=== PATIENT | male | born 1945 ===

== ENCOUNTER 2020-08-18 07:07 | Outpatient (REF) | payer MEDICARE, SELFPAY ==
[2020-08-18 07:36] LABS: MANUAL DIFF FLAG NO
[2020-08-18 07:41] LABS: Basophils Absolute Auto 0.1 X10*3/uL (0.0-0.2); Basophils Percent Auto 0.7 % (0-2); Eosinophils Absolute Auto 0.8 X10*3/uL (0.0-0.4); Eosinophils Percent Auto 10.1 % (0-4); Hemoglobin 15.2 g/dl (14.0-18.0); Imm Gran Abs Auto 0.02 X10*3/uL (0.00-0.03); Imm Gran Pct Auto 0.2 % (0.0-0.4); Lymphocytes Absolute Auto 1.6 X10*3/uL (1.2-4.9); Lymphocytes Percent Auto 19.6 % (20-40); Mean Corpuscular Volume 93.7 fL (80-98); Mean Platelet Volume 10.2 fL (9.4-12.4); Monocytes Absolute Auto 0.8 X10*3/uL (0.1-1.2); Neutrophils Absolute Auto 4.8 X10*3/uL (2.0-8.3); Neutrophils Percent Auto 59.4 % (45-73); Platelet Count 181 X10*3/uL (160-400); Red Blood Count 4.91 X10*6/uL (4.60-5.80); Red Cell Distribution Width 12.4 % (11.0-16.0); White Blood Count 8.1 X10*3/uL (4.8-10.8)
[2020-08-18 07:54] LABS: Estimated Average Glucose 114 mg/dL; Hemoglobin A1c % 5.6 %
[2020-08-18 08:09] LABS: Alanine Aminotransferase 69 U/L (0-40); Albumin Level 4.6 g/dL (3.5-5.0); Alkaline Phosphatase 68 U/L (39-117); Anion Gap 14 (12-20); Aspartate Amino Transferase 47 U/L (5-37); Bilirubin Total 2.3 mg/dL (0.0-1.0); Blood Urea Nitrogen 17 mg/dL (9-16); Calcium 9.2 mg/dL (8.4-10.2); Carbon Dioxide 29 mmol/L (22-29); Chloride 102 mmol/L (96-108); Cholesterol 146 mg/dL; Estimated Glomerular Filt Rate > 60; Glucose Fasting 101 mg/dL (60-99); HDL Cholesterol 56 mg/dL; LDL Cholesterol Calculated 72 mg/dl; Potassium 4.1 mmol/l (3.3-5.1); Sodium 141 mmol/L (135-145); Total Protein 7.1 g/dL (6.5-8.0); Triglycerides 90 mg/dL
[2020-08-18 08:29] LABS: T4 Thyroxine 6.2 ug/dL (4.5-12.0); Thyroid Stimulating Hormone 1.07 uIU/mL (0.32-4.0)
[2020-08-21 14:55] LABS: Folate 17.5 ng/mL (> or = 4.0); Vitamin B12 587 pg/mL (200-900)
== END 2020-08-18 07:08 | disposition home or self-care (01) ==
LOC: HO.LAB 07:07
PROVIDERS: Visit Provider Internal Medicine
DX: I25.10 Atherosclerotic heart disease of native coronary artery without angina pectoris (principal); I10 Essential (primary) hypertension; E78.00 Pure hypercholesterolemia, unspecified; I65.23 Occlusion and stenosis of bilateral carotid arteries; M51.36 Other intervertebral disc degeneration, lumbar region
CPT/HCPCS: 36415; 80053; 80061; 82607; 82746; 83036; 84436; 84443; 85025

== ENCOUNTER 2020-09-07 06:59 | Outpatient (REF) | payer MEDICARE, SELFPAY ==
--- NOTE | ~2020-09-07 | XR_ITS ---
EXAMINATION: CR X-RAY HAND BILATERAL 3 VIEW CLINICAL INFORMATION: Bilateral hand pain. COMPARISON: Right hand radiographs dated 04/01/2019. TECHNIQUE: 3 views each of the bilateral hands were obtained. FINDINGS: Right: Mild first carpometacarpal degenerative joint changes are seen. There is no acute fracture or dislocation. The carpal bones are normally aligned. The distal radius and ulna are intact. The soft tissues are unremarkable. Left: Moderate first carpometacarpal degenerative joint changes are seen. There is no acute fracture or dislocation. The carpal bones are normally aligned. The distal radius and ulna are intact. The soft tissues are unremarkable. XR/XR hand RT 2V IMPRESSION: Mild right and moderate left first carpometacarpal osteoarthritis. No acute abnormality.
--- NOTE | ~2020-09-07 | XR_ITS ---
EXAMINATION: CR X-RAY HAND BILATERAL 3 VIEW CLINICAL INFORMATION: Bilateral hand pain. COMPARISON: Right hand radiographs dated 04/01/2019. TECHNIQUE: 3 views each of the bilateral hands were obtained. FINDINGS: Right: Mild first carpometacarpal degenerative joint changes are seen. There is no acute fracture or dislocation. The carpal bones are normally aligned. The distal radius and ulna are intact. The soft tissues are unremarkable. Left: Moderate first carpometacarpal degenerative joint changes are seen. There is no acute fracture or dislocation. The carpal bones are normally aligned. The distal radius and ulna are intact. The soft tissues are unremarkable. XR/XR hand LT 2V IMPRESSION: Mild right and moderate left first carpometacarpal osteoarthritis. No acute abnormality.
--- NOTE | ~2020-09-07 | US_ITS ---
EXAMINATION: US ABDOMEN LIMITED CLINICAL INFORMATION: Fatty liver. COMPARISON: None TECHNIQUE: Real-time imaging of the right upper quadrant abdominal viscera. FINDINGS: PANCREAS: Visualized portions unremarkable. The tail is partially obscured by bowel gas shadowing. LIVER: Homogeneous echotexture without focal abnormality. GALLBLADDER: Small dependent gallstones are seen near the neck without mural thickening or pericholecystic fluid. COMMON BILE DUCT: Normal in caliber measuring 0.3 cm in diameter. RIGHT KIDNEY: 10.0 cm. An anechoic cyst in the upper pole within septation measures 1.8 cm. Color Doppler showed no associated vascular flow. FREE FLUID: Trace perihepatic ascites. US/US abdomen limited IMPRESSION: 1. Trace perihepatic ascites without focal hepatic abnormality. 2. Cholelithiasis without evidence for acute cholecystitis. 3. Right upper pole small renal cyst demonstrates benign features.
[2020-09-07 07:49] LABS: Alanine Aminotransferase 70 U/L (0-40); Albumin Level 4.4 g/dL (3.5-5.0); Alkaline Phosphatase 61 U/L (39-117); Aspartate Amino Transferase 41 U/L (5-37); Bilirubin Direct 0.5 mg/dL (0.0-0.5); Bilirubin Total 1.1 mg/dL (0.0-1.0); Total Protein 6.7 g/dL (6.5-8.0)
[2020-09-07 08:10] LABS: HBsAGNum1 0.19 S/CO (0.00-0.99); Hepatitis B Surface Antigen Negative (Negative); ~Hepatitis C Antibody Nonreactive (Nonreactive)
[2020-09-07 08:58] LABS: HBc Num1 0.33 S/CO (0.00-0.79); Hepatitis B Core Antibody Nonreactive (Nonreactive); ~Hepatitis B Surface Antibody NONREACTIVE (Nonreactive)
== END 2020-09-07 07:00 | disposition home or self-care (01) ==
LOC: HO.US 06:59
PROVIDERS: Visit Provider Internal Medicine
DX: K76.0 Fatty (change of) liver, not elsewhere classified (principal)
CPT/HCPCS: 36415; 73120; 76705; 80076; 86704; 86706; 86803; 87340

== ENCOUNTER 2021-02-26 07:08 | Outpatient (REF) | payer MEDICARE, SELFPAY ==
[2021-02-26 08:04] LABS: MANUAL DIFF FLAG NO
[2021-02-26 08:08] LABS: Basophils Absolute Auto 0.1 X10*3/uL (0.0-0.2); Basophils Percent Auto 0.6 % (0-2); Eosinophils Absolute Auto 0.7 X10*3/uL (0.0-0.4); Eosinophils Percent Auto 9.2 % (0-4); Hematocrit 44.9 % (42-52); Hemoglobin 14.7 g/dl (14.0-18.0); Imm Gran Abs Auto 0.03 X10*3/uL (0.00-0.03); Imm Gran Pct Auto 0.4 % (0.0-0.4); Lymphocytes Absolute Auto 1.3 X10*3/uL (1.2-4.9); Mean Corpuscular HGB Conc 32.7 g/dl (31.0-36.0); Mean Corpuscular Hemoglobin 30.8 pg (27.0-33.0); Mean Corpuscular Volume 93.9 fL (80-98); Monocytes Absolute Auto 0.8 X10*3/uL (0.1-1.2); Monocytes Percent Auto 10.1 % (2-11); Neutrophils Absolute Auto 4.9 X10*3/uL (2.0-8.3); Neutrophils Percent Auto 62.7 % (45-73); Platelet Count 166 X10*3/uL (160-400); Red Blood Count 4.78 X10*6/uL (4.60-5.80); Red Cell Distribution Width 12.6 % (11.0-16.0); White Blood Count 7.8 X10*3/uL (4.8-10.8)
[2021-02-26 08:28] LABS: Estimated Average Glucose 114 mg/dL; Hemoglobin A1c % 5.6 %
[2021-02-26 08:38] LABS: Alanine Aminotransferase 39 U/L (0-40); Albumin Level 4.1 g/dL (3.5-5.0); Alkaline Phosphatase 63 U/L (39-117); Anion Gap 11 (12-20); Aspartate Amino Transferase 32 U/L (5-37); Bilirubin Total 1.4 mg/dL (0.0-1.0); Blood Urea Nitrogen 16 mg/dL (9-16); Calcium 9.1 mg/dL (8.4-10.2); Carbon Dioxide 29 mmol/L (22-29); Chloride 108 mmol/L (96-108); Cholesterol 140 mg/dL; Estimated Glomerular Filt Rate > 60; Glucose Random 101 mg/dL (60-115); HDL Cholesterol 50 mg/dL; LDL Cholesterol Calculated 78 mg/dl; Magnesium 2.1 mg/dL (1.6-2.6); Potassium 4.7 mmol/L (3.3-5.1); Sodium 143 mmol/L (135-145); Total Protein 6.5 g/dL (6.5-8.0); Triglycerides 61 mg/dL
[2021-02-26 09:02] LABS: Folate 17.2 ng/mL (> or = 4.0); Vitamin B12 620 pg/mL (200-900)
== END 2021-02-26 07:09 | disposition home or self-care (01) ==
LOC: HO.LAB 07:08
PROVIDERS: PCP Internal Medicine; Visit Provider Internal Medicine
DX: R73.02 Impaired glucose tolerance (oral) (principal); E78.00 Pure hypercholesterolemia, unspecified; I10 Essential (primary) hypertension
CPT/HCPCS: 36415; 80053; 80061; 82607; 82746; 83036; 83735; 84439; 84443; 85025

== ENCOUNTER 2021-05-22 12:33 | Outpatient (REF) | payer MEDICARE, SELFPAY ==
[2021-05-22 14:08] LABS: Prostate Specific Antigen 0.45 ng/mL (<0.05-4.0)
[2021-05-23 21:41] LABS: Lyme Blot 0.96 index
[2021-05-24 12:37] LABS: Lyme Abs Screen EQUIVOCAL
[2021-05-25 10:56] LABS: 18 KD (IgG) Band NON-REACTIVE; 23 KD (IgG) Band NON-REACTIVE; 23 KD (IgM) Band NON-REACTIVE; 28 KD (IgG) Band NON-REACTIVE; 30 KD (IgG) Band NON-REACTIVE; 39 KD (IgM) Band NON-REACTIVE; 41 KD (IgM) Band NON-REACTIVE; 45 KD (IgG) Band NON-REACTIVE; 58 KD (IgG) Band REACTIVE; 66 KD (IgG) Band NON-REACTIVE; 93 KD (IgG) Band NON-REACTIVE; Lyme IgG Blot Interp NEGATIVE (NEGATIVE); Lyme IgM Blot Interp NEGATIVE (NEGATIVE)
== END 2021-05-22 12:34 | disposition home or self-care (01) ==
LOC: HO.LAB 12:33
PROVIDERS: Nurse Practitioner Family; PCP Internal Medicine; Visit Provider Internal Medicine
DX: Z12.5 Encounter for screening for malignant neoplasm of prostate (principal); M79.10 Myalgia, unspecified site
CPT/HCPCS: 36415; 84153; 86617; 86618

== ENCOUNTER 2022-02-21 07:43 | Outpatient (REF) | payer MEDICARE, SELFPAY ==
[2022-02-21 07:53] LABS: MANUAL DIFF FLAG NO
[2022-02-21 08:06] LABS: Basophils Absolute Auto 0.1 X10*3/uL (0.0-0.2); Basophils Percent Auto 1.1 % (0-2); Eosinophils Absolute Auto 0.7 X10*3/uL (0.0-0.4); Eosinophils Percent Auto 9.7 % (0-4); Hematocrit 44.9 % (42.0-52.0); Hemoglobin 15.5 g/dl (14.0-18.0); Imm Gran Abs Auto 0.01 X10*3/uL (0.00-0.03); Imm Gran Pct Auto 0.1 % (0.0-0.4); Lymphocytes Absolute Auto 1.5 X10*3/uL (1.2-4.9); Mean Corpuscular HGB Conc 34.5 g/dl (31.0-36.0); Mean Corpuscular Hemoglobin 31.4 pg (27.0-33.0); Mean Corpuscular Volume 91.1 fL (80.0-98.0); Mean Platelet Volume 10.3 fL (9.4-12.4); Monocytes Absolute Auto 0.7 X10*3/uL (0.1-1.2); Monocytes Percent Auto 9.5 % (2-11); Neutrophils Absolute Auto 4.5 x10*3/uL (2.0-8.3); Neutrophils Percent Auto 59.6 % (45-73); Platelet Count 163 X10*3/uL (160-400); Red Blood Count 4.93 X10*6/uL (4.60-5.80); Red Cell Distribution Width 12.8 % (11.0-16.0); White Blood Count 7.6 X10*3/uL (4.8-10.8)
[2022-02-21 08:18] LABS: Estimated Average Glucose 111 mg/dL; Hemoglobin A1c % 5.5 %
[2022-02-21 08:31] LABS: Alanine Aminotransferase 19 U/L (0-40); Albumin Level 4.4 g/dL (3.5-5.0); Alkaline Phosphatase 61 U/L (39-117); Anion Gap 12 (12-20); Aspartate Amino Transferase 28 U/L (5-37); Bilirubin Total 1.9 mg/dL (0.0-1.0); Blood Urea Nitrogen 21 mg/dL (9-16); Calcium 9.4 mg/dL (8.4-10.2); Carbon Dioxide 28 mmol/L (22-29); Chloride 103 mmol/L (96-108); Cholesterol 167 mg/dL; Estimated Glomerular Filt Rate > 60; Glucose Random 102 mg/dL (60-115); HDL Cholesterol 52 mg/dL; LDL Cholesterol Calculated 98 mg/dl; Potassium 4.4 mmol/L (3.3-5.1); Sodium 139 mmol/L (135-145); Triglycerides 87 mg/dL
[2022-02-21 08:55] LABS: Thyroid Stimulating Hormone 1.61 uIU/mL (0.32-4.0)
[2022-02-21 09:56] LABS: Folate > 20.0 ng/mL (> or = 4.0); Vitamin B12 609 pg/mL (200-900)
== END 2022-02-21 07:44 | disposition home or self-care (01) ==
LOC: HO.LAB 07:43
PROVIDERS: PCP Internal Medicine; Visit Provider Internal Medicine
DX: R73.02 Impaired glucose tolerance (oral) (principal); E78.00 Pure hypercholesterolemia, unspecified
CPT/HCPCS: 36415; 80053; 80061; 82607; 82746; 83036; 84443; 85025

== ENCOUNTER 2022-04-09 15:19 | Outpatient (REF) | payer MEDICARE, SELFPAY ==
--- NOTE | ~2022-04-09 | XR_ITS ---
EXAMINATION: XR HAND, RIGHT CLINICAL INFORMATION: Pain COMPARISON: Previous x-ray August 2020 TECHNIQUE: PA, lateral, and oblique views of the right hand. FINDINGS: Bone alignment is normal. No fracture or dislocation is seen. There is arthritis at the first MCP joint and HALFWAY joint with joint space narrowing and osteophyte formation. Joint spaces are otherwise normal. Soft tissues are normal. XR/XR hand RT min 3V IMPRESSION: Mild arthritis of the thumb.
== END 2022-04-09 15:20 | disposition home or self-care (01) ==
LOC: HO.HOSX 15:19
PROVIDERS: Visit Provider Orthopaedic Surgery
DX: M65.351 Trigger finger, right little finger (principal); R20.0 Anesthesia of skin
CPT/HCPCS: 73130; 99202

== ENCOUNTER 2022-06-12 07:36 | Outpatient (REF) | payer MEDICARE, SELFPAY ==
[2022-06-12 08:35] LABS: Alanine Aminotransferase 19 U/L (0-40); Albumin Level 4.3 g/dL (3.5-5.0); Alkaline Phosphatase 73 U/L (39-117); Anion Gap 13 (12-20); Aspartate Amino Transferase 23 U/L (5-37); Bilirubin Total 1.8 mg/dL (0.0-1.0); Blood Urea Nitrogen 15 mg/dL (9-16); Calcium 9.5 mg/dL (8.4-10.2); Carbon Dioxide 29 mmol/L (22-29); Chloride 103 mmol/L (96-108); Cholesterol 140 mg/dL; Estimated Glomerular Filt Rate > 60; Glucose Random 97 mg/dL (60-115); HDL Cholesterol 45 mg/dL; LDL Cholesterol Calculated 78 mg/dl; Potassium 4.6 mmol/L (3.3-5.1); Sodium 140 mmol/L (135-145); Total Protein 6.8 g/dL (6.5-8.0); Triglycerides 87 mg/dL
[2022-06-12 08:36] LABS: Estimated Average Glucose 111 mg/dL; Hemoglobin A1C 149.7808 umol/L; Hemoglobin A1c % 5.5 %
== END 2022-06-12 07:37 | disposition home or self-care (01) ==
LOC: HO.LAB 07:36
PROVIDERS: PCP Internal Medicine; Visit Provider Internal Medicine
DX: E78.00 Pure hypercholesterolemia, unspecified (principal)
CPT/HCPCS: 36415; 80053; 80061; 83036

== ENCOUNTER 2022-06-19 15:07 | Outpatient (REF) | payer MEDICARE, SELFPAY ==
--- NOTE | 2022-06-19 09:30 | EMG_ITS ---
Please see scanned EMG / Nerve Conduction Report. MTDD
== END 2022-06-19 15:08 | disposition home or self-care (01) ==
LOC: HO.NEURO 15:07
PROVIDERS: PCP Internal Medicine; Visit Provider Orthopaedic Surgery
DX: R20.0 Anesthesia of skin (principal); R20.2 Paresthesia of skin
CPT/HCPCS: 95885; 95913

== ENCOUNTER → 2022-07-24 08:33 | Outpatient (BNVA) | payer MEDICARE, SELFPAY | PROVIDERS: PCP Internal Medicine; Visit Provider Orthopaedic Surgery | DX: M65.351 Trigger finger, right little finger (principal); G56.03 Carpal tunnel syndrome, bilateral upper limbs | CPT/HCPCS: 99212 ==

== ENCOUNTER 2022-12-17 07:18 | Outpatient (REF) | payer MEDICARE, SELFPAY ==
[2022-12-17 07:29] LABS: MANUAL DIFF FLAG NO
[2022-12-17 08:01] LABS: Basophils Absolute Auto 0.1 X10*3/uL (0.0-0.2); Basophils Percent Auto 0.7 % (0-2); Eosinophils Absolute Auto 0.8 X10*3/uL (0.0-0.4); Eosinophils Percent Auto 9.6 % (0-4); Hematocrit 45.9 % (42.0-52.0); Hemoglobin 15.2 g/dl (14.0-18.0); Imm Gran Abs Auto 0.02 X10*3/uL (0.00-0.03); Imm Gran Pct Auto 0.2 % (0.0-0.4); Lymphocytes Absolute Auto 1.7 X10*3/uL (1.2-4.9); Lymphocytes Percent Auto 19.6 % (20-40); Mean Corpuscular HGB Conc 33.1 g/dl (31.0-36.0); Mean Corpuscular Volume 93.7 fL (80.0-98.0); Mean Platelet Volume 10.5 fL (9.4-12.4); Monocytes Absolute Auto 0.9 X10*3/uL (0.1-1.2); Neutrophils Absolute Auto 5.2 x10*3/uL (2.0-8.3); Neutrophils Percent Auto 59.9 % (45-73); Platelet Count 184 X10*3/uL (160-400); Red Cell Distribution Width 12.5 % (11.0-16.0); White Blood Count 8.6 X10*3/uL (4.8-10.8)
[2022-12-17 08:11] LABS: Estimated Average Glucose 103 mg/dL; Hemoglobin A1c % 5.2 %
[2022-12-17 08:51] LABS: Alanine Aminotransferase 19 U/L (0-40); Albumin Level 4.4 g/dL (3.5-5.0); Alkaline Phosphatase 63 U/L (39-117); Anion Gap 13 (12-20); Aspartate Amino Transferase 26 U/L (5-37); Bilirubin Total 2.7 mg/dL (0.0-1.0); Blood Urea Nitrogen 18 mg/dL (9-16); Calcium 9.7 mg/dL (8.4-10.2); Carbon Dioxide 28 mmol/L (22-29); Chloride 104 mmol/L (96-108); Cholesterol 138 mg/dL; Estimated Glomerular Filt Rate > 60; Glucose Random 91 mg/dL (60-115); HDL Cholesterol 47 mg/dL; LDL Cholesterol Calculated 74 mg/dl; Potassium 4.7 mmol/L (3.3-5.1); Sodium 140 mmol/L (135-145); Triglycerides 89 mg/dL; Uric Acid 4.6 mg/dL (3.4-7.0)
[2022-12-17 09:06] LABS: Folate 18.7 ng/mL (> or = 4.0); Free T4 (Free Thyroxine) 0.89 ng/dL (0.71-1.85); Thyroid Stimulating Hormone 1.74 uIU/mL (0.32-4.0); Vitamin B12 680 pg/mL (200-900)
== END 2022-12-17 07:19 | disposition home or self-care (01) ==
LOC: HO.LAB 07:18
PROVIDERS: PCP Internal Medicine; Visit Provider Internal Medicine
DX: I25.10 Atherosclerotic heart disease of native coronary artery without angina pectoris (principal); E78.00 Pure hypercholesterolemia, unspecified; R73.02 Impaired glucose tolerance (oral)
CPT/HCPCS: 36415; 80053; 80061; 82607; 82746; 83036; 84439; 84443; 84550; 85025

== ENCOUNTER 2023-06-17 07:09 | Outpatient (REF) | payer MEDICARE, SELFPAY ==
[2023-06-17 07:28] LABS: MANUAL DIFF FLAG NO
[2023-06-17 07:33] LABS: Basophils Percent Auto 0.5 % (0-2); Eosinophils Absolute Auto 0.8 X10*3/uL (0.0-0.4); Hematocrit 45.6 % (42.0-52.0); Hemoglobin 15.4 g/dl (14.0-18.0); Imm Gran Abs Auto 0.02 X10*3/uL (0.00-0.03); Imm Gran Pct Auto 0.3 % (0.0-0.4); Lymphocytes Absolute Auto 1.2 X10*3/uL (1.2-4.9); Lymphocytes Percent Auto 15.6 % (20-40); Mean Corpuscular HGB Conc 33.8 g/dl (31.0-36.0); Mean Corpuscular Hemoglobin 31.5 pg (27.0-33.0); Mean Corpuscular Volume 93.3 fL (80.0-98.0); Mean Platelet Volume 10.4 fL (9.4-12.4); Monocytes Absolute Auto 0.7 X10*3/uL (0.1-1.2); Monocytes Percent Auto 9.7 % (2-11); Neutrophils Absolute Auto 4.9 x10*3/uL (2.0-8.3); Neutrophils Percent Auto 63.9 % (45-73); Platelet Count 187 X10*3/uL (160-400); Red Blood Count 4.89 X10*6/uL (4.60-5.80); Red Cell Distribution Width 12.5 % (11.0-16.0); White Blood Count 7.6 X10*3/uL (4.8-10.8)
[2023-06-17 07:49] LABS: Estimated Average Glucose 111 mg/dL; Hemoglobin A1c % 5.5 % (<6.0)
[2023-06-17 08:16] LABS: Alanine Aminotransferase 17 U/L (0-40); Albumin Level 4.3 g/dL (3.5-5.0); Alkaline Phosphatase 60 U/L (39-117); Aspartate Amino Transferase 23 U/L (5-37); Bilirubin Total 1.3 mg/dL (0.0-1.0); Blood Urea Nitrogen 20 mg/dL (9-16); Calcium 9.5 mg/dL (8.4-10.2); Cholesterol 149 mg/dL (<200); Estimated Glomerular Filt Rate > 60; Glucose Random 102 mg/dL (60-115); HDL Cholesterol 51 mg/dL (>40); LDL Cholesterol Calculated 83 mg/dL (<100); Total Protein 7.1 g/dL (6.5-8.0); Triglycerides 75 mg/dL (<150)
[2023-06-17 08:35] LABS: Free T4 (Free Thyroxine) 0.83 ng/dL (0.71-1.85); Thyroid Stimulating Hormone 2.28 uIU/mL (0.32-4.0)
[2023-06-17 08:36] LABS: Folate 17.5 ng/mL (> or = 4.0); Vitamin B12 640 pg/mL (200-900)
[2023-06-17 08:45] LABS: Anion Gap 12 (12-20); Carbon Dioxide 29 mmol/L (22-29); Chloride 104 mmol/L (96-108); Potassium 4.5 mmol/L (3.3-5.1); Sodium 140 mmol/L (135-145)
== END 2023-06-17 07:10 | disposition home or self-care (01) ==
LOC: HO.LAB 07:09
PROVIDERS: PCP Internal Medicine; Visit Provider Internal Medicine
DX: E78.00 Pure hypercholesterolemia, unspecified (principal); R73.02 Impaired glucose tolerance (oral)
CPT/HCPCS: 36415; 80053; 80061; 82607; 82746; 83036; 84439; 84443; 85025

== ENCOUNTER 2023-06-20 09:26 | Outpatient (AMB) | payer MEDICARE, SELFPAY ==
[2023-06-20 09:29] VITALS: BP 148/90; PULSE 58; O2SAT 96; BMI 26.6
--- NOTE | 2023-06-20 09:29 | MHC.PC.OV ---
Vital Signs 06/20/23 09:29 Height 5 ft 4 in Weight 155 lb 0.8 oz BMI 26.6 BP 148/90 H Blood Pressure Location Lt brachial Position Sitting Pulse 58 Pulse Source Pulse Oximeter Pulse Oximetry (%) 96 Oxygen Delivery Method Room Air Intake Visit Reasons: Coronary artery disease Telehealth Nurse Educator Required: No Allergies lisinopril Allergy (Unknown, Verified 06/20/23 09:29) tiredness, cough rosuvastatin [Crestor] Allergy (Unknown, Verified 06/20/23 09:29) Unknown Tobacco use date assessed: 06/20/23 Fall risk assessment: No Falls in past year Last assessed Fall Risk: 06/20/23 Dental Screening Dental Screen Date: 06/20/23 Did you have a dental visit in the last 12 months?: Yes Did you have a dental problem in the last 6 months where you did not have access to dental care?: No Was dental information given to patient?: Patient has dentist HPI Coronary artery disease HPI Details 78-year-old male with a history of coronary artery disease hypertension hypercholesterolemia lumbar degenerative disc disease coming in for follow-up. Last seen in December 2022. Patient's colonoscopy is due this year. Review of the notes seen Cardiology May 2023 continuing with aspirin statins beta-carol ARB as for cholesterol medication patient can only tolerate certain statins due to myalgia EF from stress 49% February 2023 myocardial perfusion abnormal after stress test large dense fixed apical and mid apical anterior defect consistent with scar with minimal jessica-infarct ischemia LV 4 9% apical akinesis global hypokinesis. Patient also has seen in February the neurosurgeon status post right CEA 5 years history of TIA June 2017 carotid ultrasound follow-up in February 2025- switched cardiology to another. Dr. Simpson now- states forgoty BP med- admit [facility] Medical History (Updated 12/19/22 @ 08:47 by Nataliia Porras MD) Bilateral hand numbness Trigger finger of right hand Screening for prostate cancer Positive Lyme disease serology Lumbar nerve root compression Cholelithiasis Diverticular disease Peripheral neuropathy Hypercholesterolemia Hypertension Bilateral carotid artery stenosis Anxiety TIA (transient ischemic attack) Lumbar degenerative disc disease Coronary artery disease Erectile dysfunction Asthma Surgical History History of colonoscopy History of lumbar surgery History of surgery History of carotid endarterectomy History of cataract surgery History of coronary artery bypass graft History of eye surgery Family History Father Myocardial infarction Hypertension CVD (cardiovascular disease) Mother Hypertension Skin cancer Paternal Grandfather Myocardial infarction Paternal Uncle Myocardial infarction Social History Housing: House Alcohol intake: current Alcohol intake frequency: holidays/special occasions only Patient Tobacco Use Status: Former Tobacco user Tobacco use type: Cigarette e-Cigarette/Vaping Use: Never Used Second Hand Smoke Exposure: No service: No Current occupational status: retired Current occupation: rt hand Cognitive needs: No Hearing needs: No Vision needs: No Questionnaire Thrive Questionnaire Date Thrive assessed: 12/19/22 AUDIT C Alcohol Use Questionnaire (AUDIT-C) 1. How often do you have a drink containing alcohol?: Monthly or less 2. How many drinks containing alcohol do you have on a typical day when you are drinking?: 1 or 2 3. How often do you have six or more drinks on one occasion?: Never Total Score: 1 Score Reviewed/Action Taken: No AYANA-7 AMB Questionnaire AYANA-7 Date AYANA - 7 assessed: 12/19/22 Source: Developed by Drs. Nigel Espitia, Lisa Greene, Archie Morales and colleagues, with an educational inge from [employer]. Physical exam (Primary Care) Vital Signs: Last Vital Signs Pulse 58 06/20/23 09:29 BP 148/90 H 06/20/23 09:29 Pulse Ox 96 06/20/23 09:29 Oxygen Delivery Method Room Air 06/20/23 09:29 BMI result Body Mass Index 26.6 Tobacco/Smoking Status: Tobacco use Status Tobacco use date assessed 06/20/23 06/20/23 09:30 Patient Tobacco Use Status Former Tobacco user 06/20/23 09:30 Tobacco use type Cigarette 06/20/23 09:30 e-Cigarette/Vaping Use Never Used 06/20/23 09:30 Thrive Assessment: Date of Thrive Assessment Date Thrive assessed 12/19/22 06/20/23 09:30 Const General: alert; No acute distress Eyes Conjunctivae: conjunctivae normal Resp Auscultation: clear to auscultation bilaterally Cardio Rate: regular rate Rhythm: regular rhythm GI Inspection: Yes normal to inspection Extrem General: Yes normal to inspection and No edema Assessment and Plan Assessment & Plan (1) Coronary artery disease: Comment: CABG April 2012, stress echo January 2019 small apical infarct myocardial perfusion, February 2019 up echo anterior anteroseptal fixed and jessica-infarct ischemia. Dr. Hung Strong December 2018 and negative Code(s): I25.10 - Atherosclerotic heart disease of [place] coronary artery without angina pectoris Qualifiers: Coronary Disease-Associated Artery/Lesion type: [place] artery [place] vs. transplanted heart: [place] heart Associated angina: without angina Qualified Code(s): I25.10 - Atherosclerotic heart disease of [place] coronary artery without angina pectoris Plan: Control the cholesterol, weight, blood pressure, patient follows up with Cardiology continue with aspirin 81 mg once a day (2) Lumbar degenerative disc disease: Code(s): M51.36 - Other intervertebral disc degeneration, lumbar region Plan: Continue to be active continue with pain medication as knee (3) Asthma: Code(s): J45.909 - Unspecified asthma, uncomplicated Plan: Stable (4) Hypertension: Code(s): I10 - Essential (primary) hypertension Qualifiers: Hypertension type: essential hypertension Qualified Code(s): I10 - Essential (primary) hypertension Plan: Continue with blood pressure medication. Decrease salt intake and exercise presently on carvedilol 3.125 mg twice a day losartan 100 mg once a day (5) Hypercholesterolemia: Code(s): E78.00 - Pure hypercholesterolemia, unspecified Plan: Avoid fried foods, chicken skin, eggs, butter margarine, pastries and meat. Be it pork or beef they have a lot of cholesterol LDL goal of less than 70 and triglyceride of less than 150. Recent LDL is 83 (6) Impaired glucose tolerance: Code(s): R73.02 - Impaired glucose tolerance (oral) Plan: Decrease the amount of carbohydrate intake, pasta, bread, rice and potatoes are all sugar and that is aside from all the sweet stuff, remember that fruits are good but they are Sweet also. (7) History of carotid endarterectomy: Comment: 08/2017 Dr.Barasa Cardenas Code(s): Z98.890 - Other specified postprocedural states Plan: Patient follows up with neurosurgeon and the continuing to follow-up with ultrasounds of the carotids next 1 is February 2025 (8) Generalized anxiety disorder: Code(s): F41.1 - Generalized anxiety disorder Plan: Stable (9) Colon cancer screening: Comment: Tubular adenoma 2018 Code(s): Z12.11 - Encounter for screening for malignant neoplasm of colon Plan: scheduled Orders: Orders Lipid Panel 3 Months E78.00 - Pure hypercholesterolemia, unspecified Comprehensive Met. Panel 3 Months E78.00 - Pure hypercholesterolemia, unspecified Medications: Changed From rosuvastatin 20 mg PO DAILY 90 tabs 2RF E78.00 - Pure hypercholesterolemia, unspecified To rosuvastatin 30 mg (1.5 x 20 mg) PO DAILY 90 days 135 tabs 2RF E78.00 - Pure hypercholesterolemia, unspecified Refilled tramadol 50 mg PO TID 30 days PRN 90 tabs 3RF pain M51.36 - Other intervertebral disc degeneration, lumbar region Coding Level of Care Code Est Pt Level 4 (10017) Diagnoses Coronary artery disease involving s[place] coronary artery of [place] heart without angina pectoris I25.10 Coronary Disease-Associated Artery/Lesion type: [place] artery [place] vs. transplanted heart: [place] heart Associated angina: without angina Lumbar degenerative disc disease M51.36 Asthma J45.909 Essential hypertension I10 Hypertension type: essential hypertension Hypercholesterolemia E78.00 Impaired glucose tolerance R73.02 History of carotid endarterectomy Z98.890 Generalized anxiety disorder F41.1 Colon cancer screening Z12.11
== END 2023-06-20 10:21 | disposition home or self-care (01) ==
PROVIDERS: PCP Internal Medicine; Visit Provider Internal Medicine
DX: I25.10 Atherosclerotic heart disease of native coronary artery without angina pectoris (principal); M51.36 Other intervertebral disc degeneration, lumbar region; J45.909 Unspecified asthma, uncomplicated; I10 Essential (primary) hypertension; E78.00 Pure hypercholesterolemia, unspecified; R73.02 Impaired glucose tolerance (oral); Z98.890 Other specified postprocedural states; F41.1 Generalized anxiety disorder; Z12.11 Encounter for screening for malignant neoplasm of colon
CPT/HCPCS: 99214

== ENCOUNTER 2023-08-21 06:29 | Day surgery (SDC) | payer MEDICARE, SELFPAY ==
[2023-08-11 14:39] VITALS: BMI 26.6
--- NOTE | 2023-08-12 09:52 | HO.ANESPROP2 ---
Documented by User: Pamela Jeronimo NP 08/12/23 09:59 HPI - Anesthesia Eval Consult details Narrative: 78yo M for Upper Endoscopy and Colonoscopy s/p Right CEA 2017. Follows [facility] with routine imaging. CAD s/p CABG x 4 2011. Follows [facility] cardiology. Stable at 04/2023 office visit for 9 month f/u [facility] Active Problems Active Problems: All Active Problems (Updated 08/11/23 @ 15:27 by Radha Kramer RN) Colon cancer screening (Acute) Bilateral carpal tunnel syndrome (Acute) Carpal tunnel syndrome of left wrist (Acute) Carpal tunnel syndrome of right wrist (Acute) Trigger finger, right little finger (Acute) Generalized anxiety disorder (Acute) Actinic keratosis (Acute) Skin tag (Acute) Myalgia (Acute) Impaired glucose tolerance (Acute) Osteoarthritis, hand (Acute) Fatty liver (Acute) History of carotid endarterectomy (Acute) Screening for prostate cancer (Acute) Cholelithiasis (Acute) Peripheral neuropathy (Acute) Hypercholesterolemia (Acute) Hypertension (Acute) Anxiety (Acute) Lumbar degenerative disc disease (Acute) Coronary artery disease (Acute) Asthma (Acute) Past Medical History Medical History Bilateral hand numbness Trigger finger of right hand Screening for prostate cancer Positive Lyme disease serology Lumbar nerve root compression Cholelithiasis Diverticular disease Peripheral neuropathy Hypercholesterolemia Hypertension Bilateral carotid artery stenosis Anxiety TIA (transient ischemic attack) Lumbar degenerative disc disease Coronary artery disease Erectile dysfunction Asthma Family History Family History Father Myocardial infarction Hypertension CVD (cardiovascular disease) Mother Hypertension Skin cancer Paternal Grandfather Myocardial infarction Paternal Uncle Myocardial infarction Surgical History Surgical History History of colonoscopy History of lumbar surgery History of surgery History of carotid endarterectomy History of cataract surgery History of coronary artery bypass graft History of eye surgery Social History Social History Housing: House Alcohol intake: current Alcohol intake frequency: holidays/special occasions only Patient Tobacco Use Status: Former Tobacco user Quit Date: 15 yrs ago Tobacco use type: Cigarette e-Cigarette/Vaping Use: Never Used Second Hand Smoke Exposure: No Use of substances other than those prescribed or required for medical reasons: No Are you DNR?: No Advance Directives: No Advance Directives Information Provided: Yes service: No Current occupational status: retired Current occupation: rt hand Cognitive needs: No Hearing needs: No Vision needs: No Meds Allergies Allergy/AdvReac Type Severity Reaction Status Date / Time lisinopril Allergy Unknown tiredness, Verified 08/21/23 06:35 cough Home Medications Medication Instructions Recorded Confirmed Last Taken Type aspirin 81 mg tablet,delayed 81 mg PO DAILY 08/24/20 08/21/23 08/19/23 History release (Adult Aspirin Regimen) coenzyme Q10 100 mg capsule (Co 100 mg PO DAILY 08/24/20 08/21/23 Unknown History Q-10) multivitamin 1 tab PO DAILY 08/11/23 08/21/23 Unknown History Exam Height,Weight and Vital Signs: Height 5 ft 4 in Weight 70.307 kg Narrative Narrative: EKG 01/2023 SB @ 57 Possible LAE Poor R wave progression, ? old ant infarct ECHO 03/2023 LV size is nml LV wall thickness is upper nml No doppler evidence of increased filling pressure LV EF 55% Basal inferior wall is akinetic Basal to mid inferolateral wall is hypokinetic Septal apex is akinetic, remainder of apex is hypokinetic RV is nml in size and function PASP 35-40 Mild to mod Tricuspid regurg Assessment and Plan Assessment Anesthesia Assessment: Chart Reviewed Documented by User: Art Downs MD 08/21/23 07:55 [facility] Past Medical History Medical History Bilateral hand numbness Trigger finger of right hand Screening for prostate cancer Positive Lyme disease serology Lumbar nerve root compression Cholelithiasis Diverticular disease Peripheral neuropathy Hypercholesterolemia Hypertension Bilateral carotid artery stenosis Anxiety TIA (transient ischemic attack) Lumbar degenerative disc disease Coronary artery disease Erectile dysfunction Asthma Family History Family History Father Myocardial infarction Hypertension CVD (cardiovascular disease) Mother Hypertension Skin cancer Paternal Grandfather Myocardial infarction Paternal Uncle Myocardial infarction Family history of problems with anesthesia: No Surgical History Surgical History History of colonoscopy History of lumbar surgery History of surgery History of carotid endarterectomy History of cataract surgery History of coronary artery bypass graft History of eye surgery History of Problems with Anesthesia: No Social History Social History Housing: House Alcohol intake: current Alcohol intake frequency: holidays/special occasions only Patient Tobacco Use Status: Former Tobacco user Quit Date: 15 yrs ago Tobacco use type: Cigarette e-Cigarette/Vaping Use: Never Used Second Hand Smoke Exposure: No Use of substances other than those prescribed or required for medical reasons: No Are you DNR?: No Advance Directives: No Advance Directives Information Provided: Yes service: No Current occupational status: retired Current occupation: rt hand Cognitive needs: No Hearing needs: No Vision needs: No Meds Allergies Allergy/AdvReac Type Severity Reaction Status Date / Time lisinopril Allergy Unknown tiredness, Verified 08/21/23 06:35 cough Home Medications Medication Instructions Recorded Confirmed Last Taken Type aspirin 81 mg tablet,delayed 81 mg PO DAILY 08/24/20 08/21/23 08/19/23 History release (Adult Aspirin Regimen) coenzyme Q10 100 mg capsule (Co 100 mg PO DAILY 08/24/20 08/21/23 Unknown History Q-10) multivitamin 1 tab PO DAILY 08/11/23 08/21/23 Unknown History Exam Airway Mallampati Class: I TM Dist: >3cm Neck ROM: Full Loose/Missing/Broken Teeth: No Heart: ok. CAD. s/p CABG, CEA. Lungs: ok Assessment and Plan Assessment Anesthesia Assessment: Anesthesia Plan Discussed Final Anesthetic Review Family History of Problems with Anesthesia: No History of Problems with Anesthesia: No NPO: Yes ASA Class: III Final Preanesthetic Review: No Changes in Pt Med Stat, Meds/Allgs Chart Reviewed, Consent Obtained/Reviewed and Anes Risks/Benef Reviewed Patient Risk: Intermediate Procedure Risk: Intermediate Anesthetic Plan Anesthetic Plan: Agree w/ Assess. and Plan and TIVA Disposition: Standard PACU
[2023-08-21 06:43] VITALS: BMI 25.7
[2023-08-21 07:08] VITALS: BP 116/61; PULSE 65; RESP 16; TEMP 36.3; O2SAT 98
[2023-08-21] MEDS: Lactated Ringers 1,000 ML 50 ML IVCONT (07:10)
[2023-08-21 08:45] VITALS: BP 95/56; PULSE 61; RESP 16; TEMP 36.4; O2SAT 95
--- NOTE | 2023-08-21 08:53 | P.BOP_ITS ---
Brief Operative Note Date of Service: 08/21/23 Pre-op diagnosis: GERD, Screening Post-op diagnosis: other (Astudillo's, Diverticulosis) Procedure: EGD with biopsies, Colonoscopy to the cecum and TI Surgeon: Nigel Jensen MD Anesthesia: MAC Was an Rpg Developer used for this Procedure?: No Estimated blood loss (mL): 2.0 Pathology: other (A. EG Junction at 34cm B. Esophagus at 32cm C. Esophagus at 30cm D. Esophagus at 28cm) Condition: stable Disposition: PACU
[2023-08-21 09:02] VITALS: BP 114/60; PULSE 63; RESP 18; TEMP 36.2; O2SAT 96
--- NOTE | 2023-08-21 09:08 | OP_ITS ---
DATE OF SERVICE: 08/21/2023 SURGEON: Nigel Jensen MD INDICATIONS: The patient presents for evaluation of chronic gastroesophageal reflux, personal history of tubular adenomas of the colon, and colorectal cancer screening. Full consent was obtained from him for this, including risks of bleeding and perforation. PREOPERATIVE DIAGNOSIS: POSTOPERATIVE DIAGNOSIS: PROCEDURE PERFORMED: ESTIMATED BLOOD LOSS: COMPLICATIONS: ANESTHESIA: Monitored anesthesia care. ASSISTANTS: SPECIMENS: PREOPERATIVE DIAGNOSES: Gastroesophageal reflux, personal history of tubular adenomas of the colon, and colorectal cancer screening. POSTOPERATIVE DIAGNOSES: Gastroesophageal reflux, personal history of tubular adenomas of the colon, colorectal cancer screening, hiatal hernia, Astudillo's esophagus, diverticulosis, internal hemorrhoids. PROCEDURES PERFORMED: Esophagogastroduodenoscopy with biopsies, and colonoscopy to the cecum and terminal ileum. DESCRIPTION OF PROCEDURE: The patient was placed in the left lateral decubitus position. The Olympus video gastroscope was passed in the posterior oropharynx and upper esophagus under direct vision. The scope was passed slowly to the distal esophagus. The gastroesophageal junction appeared at 34 cm. Extending from this to 28 cm was a circumferential segment of Astudillo's mucosa with the squamocolumnar junction seen at 28 cm. There was no overlying esophagitis nor any lesions. The scope entered the stomach. There was a moderate-sized hiatal hernia with normal mucosa. The scope was advanced to the pylorus and the duodenum was cannulated to the descending portion. The duodenum including the bulb appeared normal without mass or ulceration. The scope was withdrawn back in the stomach. The gastric antrum and body appeared normal with good peristalsis. The scope was retroflexed visualizing the proximal stomach carefully, which appeared normal, without any sign of mass or ulceration. The scope was straightened and withdrawn back to the esophagus. I obtained multiple biopsies at a level of 34 cm, just above the EG junction; at 32 cm; at 30 cm and at 28 cm at the squamocolumnar junction. Proximal to this, the esophageal mucosa appeared normal. The scope was withdrawn from the patient. He was turned around for colonoscopy. The digital rectal exam revealed no abnormalities. The Olympus video pediatric colonoscope was entered into the rectum and advanced easily to the cecum. Once in the cecum, I did identify cecal pouch with appendiceal orifice and a normal-appearing ileocecal valve. The terminal ileum was cannulated and appeared normal. The scope was withdrawn back in the colon. The entire cecum and ileocecal valve appeared normal. The scope was slowly withdrawn assessing all mucosal surfaces carefully. For the most part, preparation was excellent after irrigation and suctioning. I did not visualize any sign of polyps, colitis, nor angiodysplasia. There was a mild amount of sigmoid diverticulosis. In the rectum, scope was retroflexed visualizing internal hemorrhoids, but no other pathology. The rectal mucosa appeared normal. Scope was straightened and withdrawn from the patient. He tolerated both procedures well and was returned to recovery area in stable condition. IMPRESSION: 1. Astudillo's esophagus. 2. Hiatal hernia. 3. Diverticulosis. 4. Internal hemorrhoids. PLAN: The results of biopsies will be checked. Given his age and the negative colonoscopy, I do not think he will any further screening colonoscopies. If there is no evidence of any dysplasia within the Astudillo's esophagus he most likely would not need any surveillance endoscopies, since he would be 81 years old at the time of his next 3-year interval. He does use p.r.n. famotidine, but I am going to start him on omeprazole 20 mg daily on a regular basis to prevent any further acid reflux and potential tissue injury to the esophagus. He was advised to resume his aspirin in 24 hours. If he is otherwise feeling well, he could see me on a p.r.n. basis. This has been discussed with him and his . MD BRENNEN Meadows/PATITO / [id number] MTDD
== END 2023-08-21 09:37 | disposition home or self-care (01) ==
PROVIDERS: PCP Internal Medicine; Visit Provider Internal Medicine
PROC: (CPT 43239; principal; 2023-08-21 07:30)
DX: K22.70 Barrett's esophagus without dysplasia (principal); K44.9 Diaphragmatic hernia without obstruction or gangrene; K21.9 Gastro-esophageal reflux disease without esophagitis; Z12.11 Encounter for screening for malignant neoplasm of colon; K57.30 Diverticulosis of large intestine without perforation or abscess without bleeding; K64.8 Other hemorrhoids; Z86.010 Personal history of colon polyps; I10 Essential (primary) hypertension; E78.00 Pure hypercholesterolemia, unspecified; J45.909 Unspecified asthma, uncomplicated; Z79.82 Long term (current) use of aspirin; Z79.02 Long term (current) use of antithrombotics/antiplatelets; Z79.899 Other long term (current) drug therapy
CPT/HCPCS: 43239; G0105; 88305; J2704; J3010

== ENCOUNTER 2023-09-19 07:17 | Outpatient (REF) | payer MEDICARE, SELFPAY ==
[2023-09-19 08:48] LABS: Alanine Aminotransferase 19 U/L (0-40); Albumin Level 4.2 g/dL (3.5-5.0); Alkaline Phosphatase 70 U/L (39-117); Anion Gap 12 (12-20); Aspartate Amino Transferase 24 U/L (5-37); Bilirubin Total 1.2 mg/dL (0.0-1.0); Blood Urea Nitrogen 18 mg/dL (9-16); Calcium 9.7 mg/dL (8.4-10.2); Carbon Dioxide 29 mmol/L (22-29); Chloride 105 mmol/L (96-108); Cholesterol 145 mg/dL (<200); Estimated Glomerular Filt Rate > 60; Glucose Random 102 mg/dL (60-115); HDL Cholesterol 50 mg/dL (>40); LDL Cholesterol Calculated 82 mg/dL (<100); Potassium 4.3 mmol/L (3.3-5.1); Sodium 142 mmol/L (135-145); Total Protein 7.1 g/dL (6.5-8.0); Triglycerides 66 mg/dL (<150)
== END 2023-09-19 07:18 | disposition home or self-care (01) ==
LOC: HO.LAB 07:17
PROVIDERS: PCP Internal Medicine; Visit Provider Internal Medicine
DX: E78.00 Pure hypercholesterolemia, unspecified (principal)
CPT/HCPCS: 36415; 80053; 80061

== ENCOUNTER 2023-09-24 11:41 | Outpatient (AMB) | payer MEDICARE, SELFPAY ==
--- NOTE | 2023-09-24 11:43 | MHC.PC.OV ---
Vital Signs 09/24/23 11:44 Height 5 ft 4 in Weight 152 lb BMI 26.1 BP 132/78 Blood Pressure Location Lt brachial Position Sitting Pulse 68 Pulse Source Pulse Oximeter Pulse Oximetry (%) 98 Oxygen Delivery Method Room Air Intake Visit Reasons: 3 Month F/U Allergies lisinopril Allergy (Unknown, Verified 09/24/23 11:54) tiredness, cough Tobacco use date assessed: 09/24/23 Fall risk assessment: No Falls in past year Last assessed Fall Risk: 09/24/23 Dental Screening Dental Screen Date: 09/24/23 Did you have a dental visit in the last 12 months?: Yes Did you have a dental problem in the last 6 months where you did not have access to dental care?: No Was dental information given to patient?: Patient has dentist HPI 3 Month F/U HPI Details 78-year-old male with coronary artery disease lumbar degenerative disc disease hypertension asthma hypercholesterolemia impaired glucose tolerance patient also has a history of carotid endarterectomy and generalized anxiety disorder last seen in June 2023. Patient's colonoscopy done August 2023 with EGD biopsy results negative for dysplasia FORMERLY [facility], [facility]1983 Medical History Bilateral hand numbness Trigger finger of right hand Screening for prostate cancer Positive Lyme disease serology Lumbar nerve root compression Cholelithiasis Diverticular disease Peripheral neuropathy Hypercholesterolemia Hypertension Bilateral carotid artery stenosis Anxiety TIA (transient ischemic attack) Lumbar degenerative disc disease Coronary artery disease Erectile dysfunction Asthma Surgical History History of colonoscopy History of lumbar surgery History of surgery History of carotid endarterectomy History of cataract surgery History of coronary artery bypass graft History of eye surgery Family History Father Myocardial infarction Hypertension CVD (cardiovascular disease) Mother Hypertension Skin cancer Paternal Grandfather Myocardial infarction Paternal Uncle Myocardial infarction Social History Housing: House Alcohol intake: current Alcohol intake frequency: holidays/special occasions only Patient Tobacco Use Status: Former Tobacco user Quit Date: 15 yrs ago Tobacco use type: Cigarette e-Cigarette/Vaping Use: Never Used Second Hand Smoke Exposure: No service: No Current occupational status: retired Current occupation: rt hand Cognitive needs: No Hearing needs: No Vision needs: Yes Questionnaire PHQ-9 Over the last 2 weeks, how often have you been bothered by any of the following problems? 1. Little interest or pleasure in doing things: not at all 2. Feeling down, depressed, or hopeless: not at all 3. Trouble falling or staying asleep, or sleeping too much: not at all 4. Feeling tired or having little energy: not at all 5. Poor appetite or overeating: not at all 6. Feeling bad about yourself - or that you are a failure or have let yourself or your family down: not at all 7. Trouble concentrating on things, such as reading the newspaper or watching television: not at all 8. Moving or speaking so slowly that other people could have noticed. Or the opposite - being so fidgety or restless that you have been moving around a lot more than usual: not at all 9. Thoughts that you would be better off or of hurting yourself in some way: not at all Total score: 0 Depression Screening Interpretation: Negative Depression Screening Done: Yes Source: Developed by Drs. Nigel Espitia, Lisa Greene, Archie Morales and colleagues, with an educational inge from [employer]. Thrive Questionnaire Date Thrive assessed: 09/24/23 I am a: Patient What is your living situation today?: I have a steady place to live Within the past 12 months, did the food you bought not last and you didn't have the money to get more?: Never true Within the past 12 months, did you worry whether your food would run out before you got money to buy more?: Never true Do you have trouble paying for medicines?: No Do you have trouble getting transportation to medical appointments?: No Do you have trouble paying your heating and electricity bill?: No Do you have trouble taking care of your child, family member or friend?: No Do you have trouble with day-to-day activities such as bathing, preparing meals, shopping, managing finances, etc.?: No Are you currently unemployed and looking for a job?: No Are you interested in more education?: No Currently or been in a relationship where the following occur: no concerns reported THRIVE Score: 0 AUDIT C Alcohol Use Questionnaire (AUDIT-C) 1. How often do you have a drink containing alcohol?: Monthly or less 2. How many drinks containing alcohol do you have on a typical day when you are drinking?: 1 or 2 3. How often do you have six or more drinks on one occasion?: Never Total Score: 1 Score Reviewed/Action Taken: No AYANA-7 AMB Questionnaire AYANA-7 Date AYANA - 7 assessed: 09/24/23 Feeling nervous, anxious, or on edge: 0 = Not at all Not being able to stop or control worryin = Not at all Worrying too much about different things: 0 = Not at all Trouble relaxin = Not at all Being so restless that it is hard to sit still: 0 = Not at all Becoming easily annoyed or irritable: 0 = Not at all Feeling afraid as if something awful might happen: 0 = Not at all Total AYANA-7 score (0-4 normal; 5-9 mild; 10-14 moderate; 15-21 severe): 0 Source: Developed by Drs. Nigel Espitia, Lisa Greene, Archie Morales and colleagues, with an educational inge from [employer]. Physical exam (Primary Care) Vital Signs: Last Vital Signs Pulse 68 09/24/23 11:44 BP 132/78 09/24/23 11:44 Pulse Ox 98 09/24/23 11:44 Oxygen Delivery Method Room Air 09/24/23 11:44 BMI result Body Mass Index 26.1 Tobacco/Smoking Status: Tobacco use Status Tobacco use date assessed 09/24/23 09/24/23 11:59 Patient Tobacco Use Status Former Tobacco user 09/24/23 11:47 Tobacco use type Cigarette 09/24/23 11:47 e-Cigarette/Vaping Use Never Used 09/24/23 11:47 PHQ-9: PHQ-9 Score PHQ-9: Total score 0 09/24/23 11:59 Depression Screening Interpretation: Negative Thrive Assessment: Date of Thrive Assessment Date Thrive assessed 09/24/23 09/24/23 11:59 Currently or been in a relationship where the following occur: no concerns reported Const General: alert; No acute distress Eyes Conjunctivae: conjunctivae normal Resp Auscultation: clear to auscultation bilaterally Cardio Rate: regular rate Rhythm: regular rhythm GI Inspection: Yes normal to inspection Extrem General: Yes normal to inspection and No edema Assessment and Plan Assessment & Plan (1) Coronary artery disease: Comment: follows w/[facility] Cardiology Code(s): I25.10 - Atherosclerotic heart disease of [place] coronary artery without angina pectoris Qualifiers: Coronary Disease-Associated Artery/Lesion type: [place] artery [place] vs. transplanted heart: [place] heart Associated angina: without angina Qualified Code(s): I25.10 - Atherosclerotic heart disease of [place] coronary artery without angina pectoris Plan: Control the cholesterol, weight, blood pressure continue with aspirin 81 mg once a day (2) Hypertension: Code(s): I10 - Essential (primary) hypertension Qualifiers: Hypertension type: essential hypertension Qualified Code(s): I10 - Essential (primary) hypertension Plan: Continue with blood pressure medication. Decrease salt intake and exercise on losartan 100 mg once a day carvedilol 3.125 mg twice a day and amlodipine 2.5 mg once a day (3) Impaired glucose tolerance: Code(s): R73.02 - Impaired glucose tolerance (oral) Plan: Decrease the amount of carbohydrate intake, pasta, bread, rice and potatoes are all sugar and that is aside from all the sweet stuff, remember that fruits are good but they are Sweet also. (4) Generalized anxiety disorder: Code(s): F41.1 - Generalized anxiety disorder (5) Lumbar degenerative disc disease: Code(s): M51.36 - Other intervertebral disc degeneration, lumbar region Plan: Continue present management. (6) Hypercholesterolemia: Code(s): E78.00 - Pure hypercholesterolemia, unspecified Plan: Avoid fried foods, chicken skin, eggs, butter margarine, pastries and meat. Be it pork or beef they have a lot of cholesterol presently on rosuvastatin 40 mg once patient does have myalgia from cholesterol medication LDL goal of less than 70 Orders: Orders Comprehensive Met. Panel 3 Months E78.00 - Pure hypercholesterolemia, unspecified Lipid Panel 3 Months E78.00 - Pure hypercholesterolemia, unspecified Medications: New ezetimibe (Zetia) 10 mg PO DAILY 90 tabs 3RF E78.00 - Pure hypercholesterolemia, unspecified Coding Level of Care Code Est Pt Level 4 (58173) Diagnoses Coronary artery disease involving [place] coronary artery of [place] heart without angina pectoris I25.10 Coronary Disease-Associated Artery/Lesion type: [place] artery [place] vs. transplanted heart: [place] heart Associated angina: without angina Essential hypertension I10 Hypertension type: essential hypertension Impaired glucose tolerance R73.02 Generalized anxiety disorder F41.1 Lumbar degenerative disc disease M51.36 Hypercholesterolemia E78.00
[2023-09-24 11:44] VITALS: BP 132/78; PULSE 68; O2SAT 98; BMI 26.1
== END 2023-09-24 12:24 | disposition home or self-care (01) ==
PROVIDERS: PCP Internal Medicine; Visit Provider Internal Medicine
DX: I25.10 Atherosclerotic heart disease of native coronary artery without angina pectoris (principal); I10 Essential (primary) hypertension; R73.02 Impaired glucose tolerance (oral); F41.1 Generalized anxiety disorder; M51.36 Other intervertebral disc degeneration, lumbar region; E78.00 Pure hypercholesterolemia, unspecified
CPT/HCPCS: 99214

== ENCOUNTER 2023-12-25 07:02 | Outpatient (REF) | payer MEDICARE, SELFPAY ==
[2023-12-25 07:56] LABS: Alanine Aminotransferase 21 U/L (0-40); Albumin Level 4.2 g/dL (3.5-5.0); Alkaline Phosphatase 63 U/L (39-117); Anion Gap 9 (12-20); Aspartate Amino Transferase 26 U/L (5-37); Bilirubin Total 1.5 mg/dL (0.0-1.0); Blood Urea Nitrogen 27 mg/dL (9-16); Calcium 9.5 mg/dL (8.4-10.2); Carbon Dioxide 27 mmol/L (22-29); Chloride 107 mmol/L (96-108); Cholesterol 100 mg/dL (<200); Estimated Glomerular Filt Rate > 60; Glucose Random 95 mg/dL (60-115); HDL Cholesterol 43 mg/dL (>40); LDL Cholesterol Calculated 42 mg/dL (<100); Potassium 4.1 mmol/L (3.3-5.1); Sodium 139 mmol/L (135-145); Total Protein 6.9 g/dL (6.5-8.0); Triglycerides 76 mg/dL (<150)
== END 2023-12-25 07:03 | disposition home or self-care (01) ==
LOC: HO.LAB 07:02
PROVIDERS: PCP Internal Medicine; Visit Provider Internal Medicine
DX: E78.00 Pure hypercholesterolemia, unspecified (principal)
CPT/HCPCS: 36415; 80053; 80061

== ENCOUNTER 2023-12-29 12:44 | Outpatient (AMB) | payer MEDICARE, SELFPAY ==
[2023-12-29 12:48] VITALS: BP 110/58; PULSE 56; O2SAT 97; BMI 26.6
--- NOTE | 2023-12-29 12:48 | A.OFFPC_ITS ---
Vital Signs 12/29/23 12:48 Height 5 ft 4 in Weight 155 lb BMI 26.6 BP 110/58 L Blood Pressure Location Lt brachial Position Sitting Pulse 56 Pulse Source Pulse Oximeter Pulse Oximetry (%) 97 Oxygen Delivery Method Room Air Intake Visit Reasons: 3 Month F/U Allergies lisinopril Allergy (Unknown, Verified 12/29/23 12:50) tiredness, cough Tobacco use date assessed: 09/24/23 Fall risk assessment: No Falls in past year Last assessed Fall Risk: 12/29/23 Dental Screening Dental Screen Date: 09/24/23 HPI 3 Month F/U HPI Details 78-year-old overweight male with coronar y artery disease hypertension impaired glucose tolerance hypercholesterolemia generalized anxiety disorder and lumbar degenerative disc disease coming in for follow-up 10/08/2023 last seen patient's colonoscopy is due this year. concern on muscle aches with rosuvastatin increase dose so will try to keep zetia and decrease rosuvastatin to 20 mg QD. 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 tick bite- question. has doxy. by himself and wants to have lyme test done. concern on BP due to amlodipine and BP has been low at times. [facility] Medical History (Updated 12/29/23 @ 13:19 by Nataliia Porras MD) Bilateral hand numbness Trigger finger of right hand Screening for prostate cancer Positive Lyme disease serology Lumbar nerve root compression Cholelithiasis Diverticular disease Peripheral neuropathy Hypercholesterolemia Hypertension Bilateral carotid artery stenosis Anxiety TIA (transient ischemic attack) Lumbar degenerative disc disease Coronary artery disease Erectile dysfunction Asthma Surgical History History of colonoscopy History of lumbar surgery History of surgery History of carotid endarterectomy History of cataract surgery History of coronary artery bypass graft History of eye surgery Family History Father Myocardial infarction Hypertension CVD (cardiovascular disease) Mother Hypertension Skin cancer Paternal Grandfather Myocardial infarction Paternal Uncle Myocardial infarction Social History Housing: House Alcohol intake: current Alcohol intake frequency: holidays/special occasions only Patient Tobacco Use Status: Former Tobacco user Tobacco use type: Cigarette e-Cigarette/Vaping Use: Never Used Second Hand Smoke Exposure: No service: No Current occupational status: retired Current occupation: rt hand Cognitive needs: No Hearing needs: No Vision needs: Yes Questionnaire Thrive Questionnaire Date Thrive assessed: 09/24/23 AUDIT C Alcohol Use Questionnaire (AUDIT-C) 1. How often do you have a drink containing alcohol?: Monthly or less 2. How many drinks containing alcohol do you have on a typical day when you are drinking?: 1 or 2 3. How often do you have six or more drinks on one occasion?: Never Total Score: 1 Score Reviewed/Action Taken: No AYANA-7 AMB Questionnaire AYANA-7 Date AYANA - 7 assessed: 09/24/23 Source: Developed by Drs. Nigel Espitia, Lisa Greene, Archie Morales and colleagues, with an educational inge from [employer]. Physical exam (Primary Care) Vital Signs: Last Vital Signs Pulse 56 12/29/23 12:48 BP 110/58 L 12/29/23 12:48 Pulse Ox 97 12/29/23 12:48 Oxygen Delivery Method Room Air 12/29/23 12:48 BMI result Body Mass Index 26.6 Tobacco/Smoking Status: Tobacco use Status Tobacco use date assessed 09/24/23 12/29/23 12:48 Patient Tobacco Use Status Former Tobacco user 12/29/23 12:48 Tobacco use type Cigarette 12/29/23 12:48 e-Cigarette/Vaping Use Never Used 12/29/23 12:48 Thrive Assessment: Date of Thrive Assessment Date Thrive assessed 09/24/23 12/29/23 12:48 Const General: alert; No acute distress Eyes Conjunctivae: conjunctivae normal Resp Auscultation: clear to auscultation bilaterally Cardio Rate: regular rate Rhythm: regular rhythm GI Inspection: Yes normal to inspection Extrem General: Yes normal to inspection and No edema Assessment and Plan Assessment & Plan (1) Coronary artery disease: Comment: follows w/[facility] Cardiology Code(s): I25.10 - Atherosclerotic heart disease of [place] coronary artery without angina pectoris Qualifiers: Coronary Disease-Associated Artery/Lesion type: [place] artery [place] vs. transplanted heart: [place] heart Associated angina: without angina Qualified Code(s): I25.10 - Atherosclerotic heart disease of [place] coronary artery without angina pectoris Plan: Control the cholesterol, weight, blood pressure, diabetes on aspirin 81 mg once a day (2) Hypertension: Code(s): I10 - Essential (primary) hypertension Qualifiers: Hypertension type: essential hypertension Qualified Code(s): I10 - Essential (primary) hypertension Plan: Continue with blood pressure medication. Decrease salt intake and exercise takes amlodipine 2.5 mg once a day losartan 100 mg once a day and carvedilol 3.125 mg twice a day. (3) Hypercholesterolemia: Code(s): E78.00 - Pure hypercholesterolemia, unspecified Plan: Avoid fried foods, chicken skin, eggs, butter margarine, pastries and meat. Be it pork or beef they have a lot of cholesterol LDL goal of less than 70 and preferably lower on rosuvastatin 40 mg once a day and Zetia (4) Lumbar degenerative disc disease: Code(s): M51.36 - Other intervertebral disc degeneration, lumbar region Plan: Continuing to be active and exercise. (5) Impaired glucose tolerance: Code(s): R73.02 - Impaired glucose tolerance (oral) Plan: Decrease the amount of carbohydrate intake, pasta, bread, rice and potatoes are all sugar and that is aside from all the sweet stuff, remember that fruits are good but they are Sweet also. (6) Tick bite: Code(s): W57.XXXA - Bitten or stung by nonvenomous insect and other nonvenomous arthropods, initial encounter (7) GERD (gastroesophageal reflux disease): Code(s): K21.9 - Gastro-esophageal reflux disease without esophagitis Orders: Orders Lyme IgG/IgM w/reflex to WB Today W57.XXXA - Bitten or stung by nonvenomous insect and other nonvenomous arthropods, initial encounter Vitamin B12 and Folate Today K21.9 - Gastro-esophageal reflux disease without esophagitis Complete Blood Count Auto Diff 3 Months E78.00 - Pure hypercholesterolemia, unspecified Magnesium Today K21.9 - Gastro-esophageal reflux disease without esophagitis Lipid Panel 3 Months E78.00 - Pure hypercholesterolemia, unspecified Comprehensive Met. Panel 3 Months E78.00 - Pure hypercholesterolemia, unspecified Free T4 (Free Thyroxine) 3 Months E78.00 - Pure hypercholesterolemia, unspecified Thyroid Stimulating Hormone 3 Months E78.00 - Pure hypercholesterolemia, unspecified Vitamin B12 and Folate 3 Months E78.00 - Pure hypercholesterolemia, unspecified Coding Level of Care Code Est Pt Level 4 (92591) Diagnoses Coronary artery disease involving [place] coronary artery of [place] heart without angina pectoris I25.10 Coronary Disease-Associated Artery/Lesion type: [place] artery [place] vs. transplanted heart: [place] heart Associated angina: without angina Essential hypertension I10 Hypertension type: essential hypertension Hypercholesterolemia E78.00 Lumbar degenerative disc disease M51.36 Impaired glucose tolerance R73.02 Tick bite W57.XXXA GERD (gastroesophageal reflux disease) K21.9
== END 2023-12-29 13:31 | disposition home or self-care (01) ==
PROVIDERS: PCP Internal Medicine; Visit Provider Internal Medicine
DX: I25.10 Atherosclerotic heart disease of native coronary artery without angina pectoris (principal); I10 Essential (primary) hypertension; E78.00 Pure hypercholesterolemia, unspecified; M51.36 Other intervertebral disc degeneration, lumbar region; R73.02 Impaired glucose tolerance (oral); W57.XXXA Bitten or stung by nonvenomous insect and other nonvenomous arthropods, initial encounter; K21.9 Gastro-esophageal reflux disease without esophagitis
CPT/HCPCS: 99214

== ENCOUNTER 2024-01-02 06:14 | Outpatient (REF) | payer MEDICARE, SELFPAY ==
[2024-01-02 08:41] LABS: Magnesium 2.1 mg/dL (1.6-2.6)
[2024-01-02 09:04] LABS: Folate 15.7 ng/mL (> or = 4.0); Vitamin B12 681 pg/mL (200-900)
[2024-01-05 21:39] LABS: Lyme Abs Screen <0.90 index
== END 2024-01-02 06:15 | disposition home or self-care (01) ==
LOC: HO.LAB 06:14
PROVIDERS: PCP Internal Medicine; Visit Provider Internal Medicine
DX: T14.8XXA Other injury of unspecified body region, initial encounter (principal); K21.9 Gastro-esophageal reflux disease without esophagitis; W57.XXXA Bitten or stung by nonvenomous insect and other nonvenomous arthropods, initial encounter; Y93.9 Activity, unspecified; Y92.9 Unspecified place or not applicable; Y99.9 Unspecified external cause status
CPT/HCPCS: 36415; 82607; 82746; 83735; 86617; 86618

== ENCOUNTER 2024-04-26 06:33 | Outpatient (REF) | payer MEDICARE, SELFPAY ==
[2024-04-26 06:40] LABS: MANUAL DIFF FLAG NO
[2024-04-26 07:52] LABS: Basophils Absolute Auto 0.1 X10*3/uL (0.0-0.2); Basophils Percent Auto 0.7 % (0-2); Eosinophils Absolute Auto 0.8 X10*3/uL (0.0-0.4); Eosinophils Percent Auto 9.1 % (0-4); Hematocrit 45.2 % (42.0-52.0); Hemoglobin 14.7 g/dl (14.0-18.0); Imm Gran Abs Auto 0.09 X10*3/uL (0.00-0.03); Imm Gran Pct Auto 1.1 % (0.0-0.4); Lymphocytes Absolute Auto 1.4 X10*3/uL (1.2-4.9); Lymphocytes Percent Auto 16.4 % (20-40); Mean Corpuscular HGB Conc 32.5 g/dl (31.0-36.0); Mean Corpuscular Hemoglobin 30.7 pg (27.0-33.0); Mean Corpuscular Volume 94.4 fL (80.0-98.0); Mean Platelet Volume 10.3 fL (9.4-12.4); Monocytes Absolute Auto 0.9 X10*3/uL (0.1-1.2); Neutrophils Absolute Auto 5.3 x10*3/uL (2.0-8.3); Neutrophils Percent Auto 62.7 % (45-73); Platelet Count 199 X10*3/uL (160-400); Red Blood Count 4.79 X10*6/uL (4.60-5.80); Red Cell Distribution Width 12.9 % (11.0-16.0); White Blood Count 8.5 X10*3/uL (4.8-10.8)
[2024-04-26 08:33] LABS: Alanine Aminotransferase 21 U/L (0-40); Albumin Level 4.4 g/dL (3.5-5.0); Alkaline Phosphatase 65 U/L (39-117); Anion Gap 12 (12-20); Aspartate Amino Transferase 28 U/L (5-37); Bilirubin Total 1.6 mg/dL (0.0-1.0); Blood Urea Nitrogen 18 mg/dL (9-16); Calcium 9.2 mg/dL (8.4-10.2); Carbon Dioxide 26 mmol/L (22-29); Chloride 106 mmol/L (96-108); Cholesterol 122 mg/dL (<200); Estimated Glomerular Filt Rate 60; Glucose Random 93 mg/dL (60-115); HDL Cholesterol 52 mg/dL (>40); LDL Cholesterol Calculated 54 mg/dL (<100); Potassium 4.1 mmol/L (3.3-5.1); Sodium 140 mmol/L (135-145); Total Protein 7.3 g/dL (6.5-8.0); Triglycerides 81 mg/dL (<150)
[2024-04-26 08:51] LABS: Free T4 (Free Thyroxine) 0.88 ng/dL (0.71-1.85); Thyroid Stimulating Hormone 3.13 uIU/mL (0.32-4.0)
[2024-04-26 08:55] LABS: Folate 14.1 ng/mL (> or = 4.0); Vitamin B12 791 pg/mL (200-900)
== END 2024-04-26 06:34 | disposition home or self-care (01) ==
LOC: HO.LAB 06:33
PROVIDERS: PCP Internal Medicine; Visit Provider Internal Medicine
DX: E78.00 Pure hypercholesterolemia, unspecified (principal)
CPT/HCPCS: 36415; 80053; 80061; 82607; 82746; 84439; 84443; 85025

== ENCOUNTER 2024-04-29 14:29 | Outpatient (AMB) | payer MEDICARE, SELFPAY ==
--- NOTE | 2024-04-29 14:31 | MHC.PC.OV ---
Vital Signs 04/29/24 14:32 Height 5 ft 4 in Weight 157 lb BMI 26.9 BP 130/86 Blood Pressure Location Lt brachial Position Sitting Pulse 60 Pulse Source Pulse Oximeter Pulse Oximetry (%) 96 Oxygen Delivery Method Room Air Intake Visit Reasons: Coronary artery disease Intake Note: Patient is here to follow up on CAD. Pt decline flu shot today. Rn Med Surg Required: No Cotton Ball Machine Tender: Not Required per policy Accompanied by: Self / Same As Patient Allergies lisinopril Allergy (Unknown, Verified 04/29/24 14:31) tiredness, cough Tobacco use date assessed: 04/29/24 Fall risk assessment: No Falls in past year Last assessed Fall Risk: 04/29/24 Dental Screening Dental Screen Date: 09/24/23 HPI Coronary artery disease HPI Details 78-year-old male with coronary artery disease hypertension hypercholesterolemia lumbar degenerative disc disease and impaired glucose tolerance last seen in December 2023. Patient's colonoscopy is due patient also has a history of Barretts. Review of the notes [facility] neurosurgery 03/15/2024 history of carotid endarterectomy right in August 2017 recent carotid ultrasound excellent patency advised bilateral carotid ultrasound 03/09/2025. Patient also has a test for risk for Barretts risk. Did see gastroenterology also advised repeat upper endoscopy in 09/09/2026 on omeprazole. change cardiology [facility] 2 years ago , in 2022 sob on exercises - had work up last year but was still sob , this year Dr. Barton [facility]- cath done March 2024 CAD found 2 GAVIN placed PFSH Medical History (Updated 04/29/24 @ 15:12 by Nataliia Porras MD) Bilateral hand numbness Trigger finger of right hand Screening for prostate cancer Positive Lyme disease serology Lumbar nerve root compression Cholelithiasis Diverticular disease Peripheral neuropathy Hypercholesterolemia Hypertension Bilateral carotid artery stenosis Anxiety TIA (transient ischemic attack) Lumbar degenerative disc disease Coronary artery disease Erectile dysfunction Asthma Surgical History (Updated 04/29/24 @ 14:40 by LOIS Dumont) History of heart artery stent History of cardiac catheterization History of colonoscopy History of lumbar surgery History of surgery History of carotid endarterectomy History of cataract surgery History of coronary artery bypass graft History of eye surgery Family History Father Myocardial infarction Hypertension CVD (cardiovascular disease) Mother Hypertension Skin cancer Paternal Grandfather Myocardial infarction Paternal Uncle Myocardial infarction Social History Housing: House Alcohol intake: current Alcohol intake frequency: holidays/special occasions only Patient Tobacco Use Status: Former Tobacco user Tobacco use type: Cigarette e-Cigarette/Vaping Use: Never Used Second Hand Smoke Exposure: No service: No Current occupational status: retired Current occupation: rt hand Cognitive needs: No Hearing needs: No Vision needs: Yes Questionnaire Thrive Questionnaire Date Thrive assessed: 09/24/23 Are you currently unemployed and looking for a job?: No AUDIT C Alcohol Use Questionnaire (AUDIT-C) 3. How often do you have six or more drinks on one occasion?: Never Total Score: 0 AYANA-7 AMB Questionnaire AYANA-7 Date AYANA - 7 assessed: 09/24/23 Source: Developed by Drs. Nigel Espitia, Lisa Greene, Archie Morales and colleagues, with an educational inge from [employer]. Physical exam (Primary Care) Vital Signs: Last Vital Signs Pulse 60 04/29/24 14:32 BP 130/86 04/29/24 14:32 Pulse Ox 96 04/29/24 14:32 Oxygen Delivery Method Room Air 04/29/24 14:32 BMI result Body Mass Index 26.9 Tobacco/Smoking Status: Tobacco use Status Tobacco use date assessed 04/29/24 04/29/24 14:40 Patient Tobacco Use Status Former Tobacco user 04/29/24 14:40 Tobacco use type Cigarette 04/29/24 14:40 e-Cigarette/Vaping Use Never Used 04/29/24 14:40 Thrive Assessment: Date of Thrive Assessment Date Thrive assessed 09/24/23 04/29/24 14:40 Const General: alert; No acute distress Eyes Conjunctivae: conjunctivae normal Resp Auscultation: clear to auscultation bilaterally Cardio Rate: regular rate Rhythm: regular rhythm GI Inspection: Yes normal to inspection Extrem General: Yes normal to inspection and No edema Coding Level of Care Code Est Pt Level 4 (28726) Diagnoses Coronary artery disease involving [place] coronary artery of [place] heart without angina pectoris I25.10 Coronary Disease-Associated Artery/Lesion type: [place] artery [place] vs. transplanted heart: [place] heart Associated angina: without angina Degeneration of intervertebral disc of lumbar region with discogenic back pain M51.360 Disc-related pain type: discogenic back pain only Essential hypertension I10 Hypertension type: essential hypertension Hypercholesterolemia E78.00 History of carotid endarterectomy Z98.890 Colon cancer screening Z12.11 GERD (gastroesophageal reflux disease) K21.9 Assessment & Plan Assessment & Plan (1) Coronary artery disease: Comment: follows w/[facility] March 2024 Cardiac cath [address] Barton Code(s): I25.10 - Atherosclerotic heart disease of [place] coronary artery without angina pectoris Category: Medical Qualifiers: Coronary Disease-Associated Artery/Lesion type: [place] artery [place] vs. transplanted heart: [place] heart Associated angina: without angina Qualified Code(s): I25.10 - Atherosclerotic heart disease of [place] coronary artery without angina pectoris Plan: Control the cholesterol, weight, blood pressure, continue with aspirin. Brilinta for 1 year (2) Lumbar degenerative disc disease: Code(s): M51.36 - Other intervertebral disc degeneration, lumbar region Category: Medical Qualifiers: Disc-related pain type: discogenic back pain only Qualified Code(s): M51.360 - Other intervertebral disc degeneration, lumbar region with discogenic back pain only Plan: Continuing to keep active, on tramadol (3) Hypertension: Code(s): I10 - Essential (primary) hypertension Category: Medical Qualifiers: Hypertension type: essential hypertension Qualified Code(s): I10 - Essential (primary) hypertension Plan: Continue with blood pressure medication. Decrease salt intake and exercise on losartan 100 mg once a day carvedilol 3.125 mg twice a day and amlodipine 2.5 mg once a day (4) Hypercholesterolemia: Code(s): E78.00 - Pure hypercholesterolemia, unspecified Category: Medical Plan: Avoid fried foods, chicken skin, eggs, butter margarine, pastries and meat. Be it pork or beef they have a lot of cholesterol LDL goal of less than 70 and triglyceride of less than 150. On rosuvastatin 40 mg once a day Zetia 10 mg once a day (5) History of carotid endarterectomy: Comment: 08/2017 Dr.Barasa Cardenas-right Code(s): Z98.890 - Other specified postprocedural states Category: Surgical Plan: Received notes from neurosurgery continuing present management and continuing surveillance. (6) Colon cancer screening: Comment: Tubular adenoma 2017 Code(s): Z12.11 - Encounter for screening for malignant neoplasm of colon Category: Medical Plan: Patient has met with Gastroenterology (7) GERD (gastroesophageal reflux disease): Code(s): K21.9 - Gastro-esophageal reflux disease without esophagitis Category: Medical Plan: Planned EGD in 2026 Orders: Orders Hemoglobin A1c 6 Months R73.02 - Impaired glucose tolerance (oral) Thyroid Stimulating Hormone 6 Months I25.10 - Atherosclerotic heart disease of [place] coronary artery without angina pectoris Free T4 (Free Thyroxine) 6 Months I25.10 - Atherosclerotic heart disease of [place] coronary artery without angina pectoris Comprehensive Met. Panel 6 Months R73.02 - Impaired glucose tolerance (oral) Complete Blood Count Auto Diff 6 Months I25.10 - Atherosclerotic heart disease of [place] coronary artery without angina pectoris Lipid Panel 6 Months E78.00 - Pure hypercholesterolemia, unspecified, I25.10 - Atherosclerotic heart disease of [place] coronary artery without angina pectoris Vitamin B12 and Folate 6 Months I25.10 - Atherosclerotic heart disease of [place] coronary artery without angina pectoris B Type Natriuretic Peptide 6 Months I25.10 - Atherosclerotic heart disease of [place] coronary artery without angina pectoris Medications: Refilled tramadol 50 mg PO TID 30 days PRN 90 tabs 3RF pain M51.36 - Other intervertebral disc degeneration, lumbar region
[2024-04-29 14:32] VITALS: BP 130/86; PULSE 60; O2SAT 96; BMI 26.9
== END 2024-04-29 15:19 | disposition home or self-care (01) ==
PROVIDERS: PCP Internal Medicine; Visit Provider Internal Medicine
DX: I25.10 Atherosclerotic heart disease of native coronary artery without angina pectoris (principal); M51.360 Other intervertebral disc degeneration, lumbar region with discogenic back pain only; I10 Essential (primary) hypertension; E78.00 Pure hypercholesterolemia, unspecified; Z98.890 Other specified postprocedural states; Z12.11 Encounter for screening for malignant neoplasm of colon; K21.9 Gastro-esophageal reflux disease without esophagitis

== ENCOUNTER → 2024-04-29 14:29 | Outpatient (BNVA) | payer MEDICARE, SELFPAY | PROVIDERS: PCP Internal Medicine; Visit Provider Internal Medicine | DX: I25.10 Atherosclerotic heart disease of native coronary artery without angina pectoris (principal); M51.360 Other intervertebral disc degeneration, lumbar region with discogenic back pain only; I10 Essential (primary) hypertension; E78.00 Pure hypercholesterolemia, unspecified; K21.9 Gastro-esophageal reflux disease without esophagitis | CPT/HCPCS: 99212 ==

== ENCOUNTER 2024-10-28 07:40 | Outpatient (REF) | payer MEDICARE, SELFPAY ==
--- OUTSIDE RECORDS SUMMARY | 2024-10-28 07:44 | XMS_ITS ---
Author Organization [facility] Address [address] [place] [address] Care Team Providers Care Bsa Officer Name Role Phone Nataliia Porras MD Primary Care Provider Nigel Williamson [phone] Allergies No Known Allergies REASON FOR VISIT Patient presents today for gerd, Astudillo's esophagus Medications Medication SIG (Take, Route, Frequency, Duration) Notes Start Date End Date Status amLODIPine Besylate 2.5 MG TAKE 1 TABLET BY MOUTH EVERY DAY Oral for 90 Active Omeprazole 20 MG 1 Orally Every morning 08/21/2023 Active Carvedilol 3.125 MG Orally twice a day Active Losartan Potassium 100 MG Oral for 90 Active Rosuvastatin Calcium 20 MG Oral for 90 Active CoQ-10 Active traMADol HCl 50 MG 1 tablet as needed Orally Once a day PRN Back pain Active Glucosamine Chond MSM Formula - as directed Orally Active Aspir-81 81mg 1 tablet Orally Once a day Active Multi Vitamin/Minerals Active Zetia 10 MG 1 tablet Orally Once a day for 30 day(s) Active Social History Tobacco Use: Social History Observation Description Date Details (start date - stop date) Former Smoker NA - NA Tobacco Use/Smoking Question Answer Notes Patient is a former smoker How long has it been since you last smoked? 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 Problem Diaphragmatic hernia (74792410) Hernia, hiatal (K44.9) Active confirmed Vital Signs Blood pressure systolic 00 mm Hg 01/13/20 24 Blood pressure diastolic 00 mm Hg 024 Height 65 in 01/13/2024 Weight 154 lbs 01/13/2024 BMI 25.62 kg/m2 01/13/2024 Encounters Encounter Location Date Provider Diagnosis [facility] [address] [place] [address] 01/13/2024 Nigel Jensen Chronic GERD K21.9 ; Astudillo''s esophagus without dysplasia K22.70 ; Hernia, hiatal K44.9 and 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 K22.70 Assessments Encounter Date Diagnosis (ICD Code) Assessment Notes Treatment Notes Treatment Clinical Notes Section Notes 01/13/2024 Chronic GERD (ICD-10 - K21.9) Overall, Osbaldo appears quite well. We did review his recent GI procedures in detail. Based on the negative colonoscopy, his age, and current guidelines, I advised him that he would not need any further screening colonoscopies. We did review that obviously if he develops any significant change in bowel habits or bleeding he should contact me for reevaluation. We did have a detailed discussion today regarding his reflux and Astudillo's esophagus with the theoretical increased incidence of esophageal cancer. I did advise him that I would recommend he stay on omeprazole daily and long-term for symptomatic relief of reflux and to prevent further acid injury to his esophagus. We did review that I would send him a reminder to meet with me in 3 years to discuss a potential followup upper endoscopy, although at that point at age 81 we would need to take his clinical condition into account. I will request that his pathology specimen from August be sent out for a new study that assesses the tissue for any signs of increased probability of esophageal cancer in the future. This is called a TissueCypher study. I did advise Osbaldo to contact me if he develops any worsening symptoms of reflux, dysphagia, or simply if he needs refills on his omeprazole. Osbaldo was very comfortable with this plan. Thank you again for allowing me to participate in Osbaldo's care. I shall continue to keep you advised of his progress. 01/13/2024 Astudillo''s esophagus without dysplasia (ICD-10 - K22.70) Repeat upper endoscopy in 08/2026 Overall, Osbaldo appears quite well. We did review his recent GI procedures in detail. Based on the negative colonoscopy, his age, and current guidelines, I advised him that he would not need any further screening colonoscopies. We did review that obviously if he develops any significant change in bowel habits or bleeding he should contact me for reevaluation. We did have a detailed discussion today regarding his reflux and Astudillo's esophagus with the theoretical increased incidence of esophageal cancer. I did advise him that I would recommend he stay on omeprazole daily and long-term for symptomatic relief of reflux and to prevent further acid injury to his esophagus. We did review that I would send him a reminder to meet with me in 3 years to discuss a potential followup upper endoscopy, although at that point at age 81 we would need to take his clinical condition into account. I will request that his pathology specimen from August be sent out for a new study that assesses the tissue for any signs of increased probability of esophageal cancer in the future. This is called a TissueCypher study. I did advise Osbaldo to contact me if he develops any worsening symptoms of reflux, dysphagia, or simply if he needs refills on his omeprazole. Osbaldo was very comfortable with this plan. Thank you again for allowing me to participate in Osbaldo's care. I shall continue to keep you advised of his progress. 01/13/2024 Hernia, hiatal (ICD-10 - K44.9) Overall, Osbaldo appears quite well. We did review his recent GI procedures in detail. Based on the negative colonoscopy, his age, and current guidelines, I advised him that he would not need any further screening colonoscopies. We did review that obviously if he develops any significant change in bowel habits or bleeding he should contact me for reevaluation. We did have a detailed discussion today regarding his reflux and Astudillo's esophagus with the theoretical increased incidence of esophageal cancer. I did advise him that I would recommend he stay on omeprazole daily and long-term for symptomatic relief of reflux and to prevent further acid injury to his esophagus. We did review that I would send him a reminder to meet with me in 3 years to discuss a potential followup upper endoscopy, although at that point at age 81 we would need to take his clinical condition into account. I will request that his pathology specimen from August be sent out for a new study that assesses the tissue for any signs of increased probability of esophageal cancer in the future. This is called a TissueCypher study. I did advise Osbaldo to contact me if he develops any worsening symptoms of reflux, dysphagia, or simply if he needs refills on his omeprazole. Osbaldo was very comfortable with this plan. Thank you again for allowing me to participate in Osbaldo's care. I shall continue to keep you advised of his progress. 01/13/2024 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 (ICD-10 - K22.70) Overall, Osbaldo appears quite well. We did review his recent GI procedures in detail. Based on the negative colonoscopy, his age, and current guidelines, I advised him that he would not need any further screening colonoscopies. We did review that obviously if he develops any significant change in bowel habits or bleeding he should contact me for reevaluation. We did have a detailed discussion today regarding his reflux and Astudillo's esophagus with the theoretical increased incidence of esophageal cancer. I did advise him that I would recommend he stay on omeprazole daily and long-term for symptomatic relief of reflux and to prevent further acid injury to his esophagus. We did review that I would send him a reminder to meet with me in 3 years to discuss a potential followup upper endoscopy, although at that point at age 81 we would need to take his clinical condition into account. I will request that his pathology specimen from August be sent out for a new study that assesses the tissue for any signs of increased probability of esophageal cancer in the future. This is called a TissueCypher study. I did advise Osbaldo to contact me if he develops any worsening symptoms of reflux, dysphagia, or simply if he needs refills on his omeprazole. Osbaldo was very comfortable with this plan. Thank you again for allowing me to participate in Osbaldo's care. I shall continue to keep you advised of his progress. Plan Of Treatment Medication Medication Name Sig Start Date Stop Date Notes Omeprazole 20 MG 1 Orally Every morning 08/21/2023 Treatment Notes Assessment Notes Astudillo''s esophagus without dysplasia R epeat upper endoscopy in 08/2026 Next Appt Details Follow Up: prn, Reason: Progress Notes * OSBALDO WALLACE MDOB: [birth year] (78 yo M)Acc No.[id number]:01/13/2024 Progress Notes Patient:?KATHIE WALLACEY Jacinta Provider:?Nigel Jensen MD :1945???Age:78 Y???Sex:Male Lupillo e:01/13/2024 Address:[address] [place] [address] , [id number] Pcp:Nataliia Porras MD Subjective: * Chief Complaints: * ???Patient presents today fo r gerd, Astudillo's esophagus * HPI: ???incontinence:? I saw Osbaldo in followup today in regard to his chronic gastroesophageal reflux and Astudillo's esophagus. ?I last saw Osbaldo in August, at which time he underwent an upper endoscopy and screening colonoscopy. The screening colonoscopy was negative for any polyps. The endoscopy revealed a moderate-sized hiatal hernia and a fairly long segment of Astduillo's esophagus. There was no evidence of esophagitis and all biopsies were negative for any dysplasia. ?At that time I switched him from his famotidine to a daily 20 mg omeprazole. He has noticed a definitive and significant improvement in his reflux symptoms since that time. He has not had any significant heartburn nor Reflux symptoms since having started omeprazole. He is eating comfortably he denies any early satiety, dysphagia, nausea, or vomiting. ?His bowel movements have remained regular and without any signs of bleeding. He denies abdominal pain, jaundice, nor unintentional weight loss. * ROS:?General/Constitutional:?Change in appetite?denies.?Chills?denies.?Fatigue?denies.?Ophthalmologic:?Patient denies? Negative..?ENT:?Patient denies?Negative..?Respiratory:?Patient denies?No coughing/hemoptysis..?Cardiovascular:?Patient denies? No chest pain/orthopnea..?Gastrointestinal:?Comments?See HPI for details.?Genitourinary:?Patient denies? No dysuria/hematuria..?Musculoskeletal:?Patient denies? No specific arthralgias/myalgias..?Skin:?Patient denies?No rash/pruritus..?Neurologic:?Patient denies? No headaches/seizures..?Psychiatric:?Patient denies?Negative..? * Medical History:? * Surgical History:?4-V CABG-f ine since then 05/20/12Facial fractures Back L3-L4 Back S1- L4 10/2016Right carotid Cataract-lens implants * Hospitalization/Major Diagno stic Procedure:?No Hospitalization History. * Family History:?Father: dece ased.?Mother: .? Pt. denies family hx. of colorectal cancer. * Social History:?Tobacco Use:?Tobacco Use/Smoking?Patient is a?former smoker,?How long has it been since you last smoked??5-10 years.?Drugs/Alcohol:?Alcohol Screen?Points: 1, Interpretation: Negative.?Miscellaneous:?Marital status: . Occupation: Landlord. ???Nonsmoker >5yrs; no alcohol. * Medications:?TakingZetia 10 MG Tablet 1 tablet Orally Once a dayCoQ-10 traMADol HCl 50 MG Tablet 1 tablet as needed Orally Once a day, Notes: PRN Back painGlucosamine Chond MSM Formula - Tablet as directed Orally Aspir-81 81mg Tablet Delayed Release 1 tablet Orally Once a dayMulti Vitamin/Minerals Carvedilol 3.125 MG Tablet Orally twice a dayLosartan Potassium 100 MG Tablet Oral Rosuvastatin Calcium 20 MG Tablet Oral Omeprazole 20 MG Capsule Delayed Release 1 Orally Every morningamLODIPine Besylate 2.5 MG Tablet TAKE 1 TABLET BY MOUTH EVERY DAY Oral Taking Zetia 10 MG Tablet 1 tablet Orally Once a dayTaking CoQ-10 Taking traMADol HCl 50 MG Tablet 1 tablet as needed Orally Once a day, Notes: PRN Back painTaking Glucosamine Chond MSM Formula - Tablet as directed Orally Taking Aspir-81 81mg Tablet Delayed Release 1 tablet Orally Once a dayTaking Multi Vitamin/Minerals Taking Carvedilol 3.125 MG Tablet Orally twice a dayTaking Losartan Potassium 100 MG Tablet Oral Taking Rosuvastatin Calcium 20 MG Tablet Oral Taking Omeprazole 20 MG Capsule Delayed Release 1 Orally Every morningTaking amLODIPine Besylate 2.5 MG Tablet TAKE 1 TABLET BY MOUTH EVERY DAY Oral DiscontinuedFamotidine 20 MG Tablet 1 Orally as neededMedication List reviewed and reconciled with the patientDiscontinued Famotidine 20 MG Tablet 1 Orally as neededMedication List reviewed and reconciled with the patient * Allergies:?N.K.D.A.yes[Aller gies Verified] Objective: * Vitals:?Wt: 154 lbs, Ht: 65 in, BMI:25.62 Index, BP: 00/00 mm Hg. * Examination: ???General Examination: ?GENERAL APPEARANCE:?pleasant, well nourished, well developed, in no acute distress.?EYES:?sclera non-icteric.?ORAL CAVITY:?mucosa moist.?NECK/THYROID:?no cervical lymphadenopathy, neck supple.?SKIN:?nonjaundiced, no spider angiomata..?HEART:?S1, S2 normal.?LUNGS:?clear to auscultation bilaterally.?ABDOMEN:?normal bowel sounds, no guarding or rigidity, no hepatosplenomegaly, no masses palpable, soft, nontender, nondistended..?EXTREMITIES:?no edema.?NEUROLOGIC:?alert and oriented.? Assessment: * Assessment: 1.?Astudillo''s esophagus with out dysplasia - K22.70 (Primary)?2.?Chronic GERD - K21.9?3.?Hernia, hiatal - K44.9?4.?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 - K22.70? Overall, Osbaldo appears quite well. We did review his recent GI procedures in detail. Based on the negative colonoscopy, his age, and current guidelines, I advised him that he would not need any further screening colonoscopies. We did review that obviously if he develops any significant change in bowel habits or bleeding he should contact me for reevaluation. We did have a detailed discussion today regarding his reflux and Astudillo's esophagus with the theoretical increased incidence of esophageal cancer. I did advise him that I would recommend he stay on omeprazole daily and long-term for symptomatic relief of reflux and to prevent further acid injury to his esophagus. We did review that I would send him a reminder to meet with me in 3 years to discuss a potential followup upper endoscopy, although at that point at age 81 we would need to take his clinical condition into account. I will request that his pathology specimen from August be sent out for a new study that assesses the tissue for any signs of increased probability of esophageal cancer in the future. This is called a TissueCypher study. I did advise Osbaldo to contact me if he develops any worsening symptoms of reflux, dysphagia, or simply if he needs refills on his omeprazole. Osbaldo was very comfortable with this plan. Thank you again for allowing me to participate in Osbaldo's care. I shall continue to keep you advised of his progress. Plan: * Treatment: 2.?Astudillo's esophagus witho ut dysplasia? Continue Omeprazole Capsule Delayed Release, 20 MG, 1, Orally, Every morning.?? * Procedure Codes:?1036F TOBAC CO NON-EILAW9857 BP SCR NOT PRFRM REC REASON NOS * Preventive Medicine:? ??Counseling:?Care goal follow-up plan:?Above Normal BMI Follow-up?Giving encouragement to exercise,?BMI management provided?Yes.? * Follow Up:?prn * * Sign off status: Completed true * Provider:?Nigel Jensen MD Date:? 024 Generated for Coral saleem/Clifton/Dukeitting on:?10/28/2024 07:43 AM EDT History and Physical Notes * HPI (History of Present Illness) Category Sub-Category Detail Notes Category Not es incontinence I saw Osbaldo in followup today in regard to his chronic gastroesophageal reflux and Astudillo's esophagus. I last saw Osbaldo in August, at which time he underwent an upper endoscopy and screening colonoscopy. The screening colonoscopy was negative for any polyps. The endoscopy revealed a moderate-sized hiatal hernia and a fairly long segment of Astudillo's esophagus. There was no evidence of esophagitis and all biopsies were negative for any dysplasia. At that time I switched him from his famotidine to a daily 20 mg omeprazole. He has noticed a definitive and significant improvement in his reflux symptoms since that time. He has not had any significant heartburn nor Reflux symptoms since having started omeprazole. He is eating comfortably he denies any early satiety, dysphagia, nausea, or vomiting. His bowel movements have remained regular and without any signs of bleeding. He denies abdominal pain, jaundice, nor unintentional weight loss. Examination Category Sub-Category Detail Notes Category Not es General Examination GENERAL APPEARANCE: pleasant , well nourished, well developed, in no acute distress EYES: sclera non-icteric NECK/THYROID: no cervical lymphade nopathy, neck supple HEART: S1, S2 normal LUNGS: clear to auscultatio n bilaterally ABDOMEN: normal bowel sounds, no guarding or rigidity, no hepatosplenomegaly, no masses palpable, soft, nontender, nondistended. NEUROLOGIC: alert and oriented SKIN: nonjaundiced, no spi berkley angiomata. EXTREMITIES: no edema ORAL CAVITY: mucosa moist
--- OUTSIDE RECORDS SUMMARY | 2024-10-28 07:44 | XMS_ITS | Encounter Summary ---
Author Organization [facility] Address [address] [place] [address] Care Team Providers Care Director Of Investigations Name Role Phone Nataliia Porras MD Primary Care Provider [phone] Reason for Visit * Reason Comments Other Encounter Details Date Type Department Care Team ([facility] st Contact Info) Description 02/12/2023 Telephone [facility] [address] [place] [address] Fermin Brandt MD [address] [place] [phone] Other Social History Tobacco Use Types Packs/Day Years Used Date Smoking Tobacco: Former Cigarettes Q uit: 2010 Smokeless Tobacco: Never Alcohol Use Standard Drinks/Week Comments Never 0 (1 standard drink = 0.6 oz pur e alcohol) AUDIT-C Answer Date Recorded Frequency of Alcohol Consumption Never 03/08/2019 Average Number of Drinks Not on file 019 Frequency of Binge Drinking Not on file 02/18 Sex and Gender Information Value Date Recorded Sex Assigned at Not on file Legal Sex Male 3:47 PM EST Gender Identity Not on file Sexual Orientation Not on file documented as of this encounter Miscellaneous Notes * Telephone Encounter - Julián Hopkins RN - 02/12/2023 12:27 PM EDT CUS scheduled for [facility] office on 02/14/23 at 11:30 am. Osbaldo notified of the appt. * Telephone Encounter - Mikaela Oglesby - 02/12/2023 11:14 AM EDT [facility] MESSAGE Time of call: 11:14 AM Caller: osbaldo Caller's relationship to patient: Calling from Reason for call: Pt called back to [facility] to fax orders for ultrasound of his cartoid artery. Please fax order to [facility] at [phone] which is a different number to try. He said this has been goingon for a month Best telephone number for callback: [phone] Best time to return call Permission to leave message: Mikaela Oglesby documented in this encounter Plan of Treatment Not on file documented as of this encounter Visit Diagnoses Not on filedocumented in this encounter Care Teams Director Of Investigations Relationship Specialty Start Date End Date Nataliia Porras MD [address] [place] [address] [place] [phone] PCP - General Internal Medicine 08/14/18 documented as of this encounter
--- OUTSIDE RECORDS SUMMARY | 2024-10-28 07:44 | XMS_ITS | Encounter Summary ---
Author Organization [facility] Address [address] [place] [address] Care Team Providers Care Oil Rig Driller Name Role Phone Nataliia Porras MD Primary Care Provider [phone] Reason for Referral * Imaging (Routine) - Closed Specialty Diagnoses / Procedures Referred By Yo huerta Referred To Contact Diagnostic Radiology Procedures US Duplex Carotid Bilateral Complete Fermin Brandt MD [address] [place] [phone] Phone: tel: fax: Referral ID Status Reason Start Date Expiration Date Visits Re quested Visits Authorized [id number] Closed 03/13/2021 03/13/2022 1 1 Encounter Details Date Type Department Care Team (Late st Contact Info) Description 03/13/2021 Scanned Document [facility] [address] [place] [address] Fermin Brandt MD [address] [place] [phone] Social History Tobacco Use Types Packs/Day Years Used Date Smoking Tobacco: Former Cigarettes Q uit: 2010 Smokeless Tobacco: Never Alcohol Use Standard Drinks/Week Comments Never 0 (1 standard drink = 0.6 oz pur e alcohol) AUDIT-C Answer Date Recorded Frequency of Alcohol Consumption Never 03/08/2019 Average Number of Drinks Not on file 08/19/2 019 Frequency of Binge Drinking Not on file 02/18 Sex and Gender Information Value Date Recorded Sex Assigned at Not on file Legal Sex Male 3:47 PM EST Gender Identity Not on file Sexual Orientation Not on file documented as of this encounter Plan of Treatment Not on file documented as of this encounter Procedures Procedure Name Priority Date/Time Associated Diagnosis Comments US DUPLEX CAROTID BILATERAL COMPLETE Routine 03/07/2021 documented in this encounter Results * US Duplex Carotid Bilateral Complete (03/07/2021) Anatomical Region Laterality Modality Vascular, Neck Ultrasound us Fermin Brandt MD IMG US ORDERABLES Final Res ult documented in this encounter Visit Diagnoses Not on filedocumented in this encounter Care Teams Oil Rig Driller Relationship Specialty Start Date End Date Nataliia Porras MD [address] [place] [address] [place] [phone] PCP - General Internal Medicine 08/14/18 documented as of this encounter
--- OUTSIDE RECORDS SUMMARY | 2024-10-28 07:44 | XMS_ITS | Encounter Summary ---
Author Organization [facility] Address [address] [place] [address] Care Team Providers Care Contract Assistant Name Role Phone Nataliia Porras MD Primary Care Provider [phone] Encounter Details Date Type Department Care Team (Late st Contact Info) Description 03/23/2019 Abstract [facility] [address] [facility] [address] [facility] [place] [address] Fermin Brandt MD [address] [place] [phone] Social History Tobacco Use Types Packs/Day Years [...] on filedocumented in this encounter Care Teams Contract Assistant Relationship Specialty Start Date End Date Nataliia Porras MD [address] [place] [address] [place] [phone] PCP - General Internal Medicine 08/14/18 documented as of this encounter
--- OUTSIDE RECORDS SUMMARY | 2024-10-28 07:44 | XMS_ITS | Clinical Summary ---
Author Organization [address] Address [address] [place] [phone] Phone Care Team Providers Care Operations Support Coordinator Name Role Phone Nataliia Porras MD Primary Care Provider [phone] Allergies No known active allergies Medications traMADol (ULTRAM) 50 mg tablet TAKE 1 TABLET BY MOUTH THREE TIMES A DAY NEEDED 3 02/19/2019 Active carvedilol (COREG) 3.125 MG Immediate Release tablet TAKE 1 TABLET BY MOUTH TWICE A DAY 3 01/08/2019 Active aspirin 81 MG EC tablet Take 1 tablet (81 mg total) by mouth daily. Active losartan (COZAAR) 100 mg tablet TAKE 1 TABLET BY MOUTH EVERY DAY 02/22/2020 Active multivitamin capsule Take 1 capsule by mouth daily. Active glucosam/chond- msm1/C/phoenix/bor (GLUCOSAMINE-CH OND-MSM COMPLEX ORAL) Take by mouth. Active coenzyme Q10 100 mg/mL Liqd Take by mouth. Active nitroGLYCERIN (NITROSTAT) 0.[address] 1 TABLET UNDER THE TONGUE EVERY 5 MINUTES NEEDED FOR CHEST PAIN. 09/28/2021 Active amLODIPine (NORVASC) 2.5 mg tablet TAKE 1 TABLET BY MOUTH EVERY DAY Oral for 90 Active omeprazole (PRILOSEC) 20 mg capsule Take 1 capsule (20 mg total) by mouth every morning. Active ZETIA 10 mg tablet 1 tablet Orally Once a day for 30 day(s) Active rosuvastatin (CRESTOR) 40 mg tablet Take 1 tablet (40 mg total) by mouth daily. 03/13/2024 Active Active Problems Problem Noted Date Diagnosed Date HTN (hypertension) 02/26/2023 03/10/2023 HLD (hyperlipidemia) 02/26/2023 03/10/2023 CAD in [place] artery 02/26/2023 03/10/2023 Acute respiratory failure 03/18/2022 Aspiration pneumonia (HC Code) (HC CODE) 022 Spinal stenosis of lumbar region 03/18/2022 Transient ischemic attack 03/18/2022 Symptomatic stenosis of right carotid artery Overview (03/14/2019): 81% symptomatic atherosclerotic stenosis Asymptomatic stenosis of left carotid artery Overview (03/14/2019): 32% Family History Medical History Relation Name Comments Heart attack Father Diabetes Other Heart attack Paternal Grandfather Relation Name Status Comments Father Other Paternal Grandfather Social History Tobacco Use Types Packs/Day Years Used Date Smoking Tobacco: Former Cigarettes Q uit: 2010 Smokeless Tobacco: Never Tobacco Cessation:Counseling Given: Not Answered Alcohol Use Standard Drinks/Week Comments Never 0 [...] on file Sexual Orientation Not on file Last Filed Vital Signs Vital Sign Reading Time Taken Comments Blood Pressure 110/74 03/08/2019 10:35 AM EDT Pulse - - Temperature - - Respiratory Rate - - Oxygen Saturation - - Inhaled Oxygen Concentration - - Weight 68.5 kg (151 lb) 03/15/2024 10:23 AM EDT per patient Height 165.1 cm (5' 5 ) 03/15/2024 10:23 AM EDT Body Mass Index 25.13 03/15/2024 10:23 AM EDT Plan of Treatment Health Maintenance Due Date Last Done Comments HIV screening 1959 Diabetes screening 1964 Hepatitis C screening 1964 Tetanus adult (Td q 10,TDAP once) 1966 Lipid disorder screening 1986 Shingles vaccine (Shingrix) (1 of 2 - Shingrix (RZV) 2 Dose Standard Series) 1996 Pneumococcal Vaccine (50+ ye ars) (2 of 2 - PPSV23) 06/27/2017 06/27/2016 RSV Immunization (1 - 1-dose 75+ series) 2021 Covid-19 vaccine series (1 - season) 2024 Influenza vaccine 03/21/2025 Meningococcal Vaccine Aged Out No nicholas genet eligible based on patient's age to complete this topic Insurance MEDICARE [facility] MEDICARE [facility] MEDICARE [facility] Care Teams Operations Support Coordinator Relationship Specialty Start Date End Date Nataliia Porras MD [address] [place] [address] Dr Farias, [place] [address] PCP - General Internal Medicine 08/14/18
--- OUTSIDE RECORDS SUMMARY | 2024-10-28 07:44 | XMS_ITS | Encounter Summary ---
Author Organization [facility] Address [address] [place] [address] Care Team Providers Care Brick Grader Name Role Phone Nataliia Porras MD Primary Care Provider [phone] Encounter Details Date Type Department Care Team (Late st Contact Info) Description 04/15/2019 Scanned Document [facility] [address] [facility] [address] [facility] [place] [address] Fermin Brandt MD [address] [place] [phone] Social History Tobacco Use Types Packs/Day Years [...] on filedocumented in this encounter Care Teams Brick Grader Relationship Specialty Start Date End Date Nataliia Porras MD [address] [place] [address] [place] [phone] PCP - General Internal Medicine 08/14/18 documented as of this encounter
--- OUTSIDE RECORDS SUMMARY | 2024-10-28 07:44 | XMS_ITS | Encounter Summary ---
Author Organization [facility] Address [address] [place] [address] Care Team Providers Care Order Checker Packer Processer Name Role Phone Nataliia Porras MD Primary Care Provider [phone] Reason for Referral * Imaging (Routine) - Closed Specialty Diagnoses / Procedures Referred By Yo huerta Referred To Contact Diagnostic Radiology Procedures US Duplex Carotid Bilateral Complete Neurosurgery at [address] [place] [address] Phone: tel: fax: Referral ID Status Reason Start Date Expiration Date Visits Re quested Visits Authorized [id number] Closed 03/11/2022 03/11/2023 1 1 Encounter Details Date Type Department Care Team ([facility] st Contact Info) Description 03/11/2022 Scanned Document Neurosurgery at [address] [place] [address] Luanne Hair . Social History Tobacco Use Types Packs/Day Years [...] Comments US DUPLEX CAROTID BILATERAL COMPLETE Routine 03/08/2022 documented in this encounter Results * US Duplex Carotid Bilateral Complete (03/08/2022) Anatomical Region Laterality Modality Vascular, Neck Ultrasound us Historical Provider IMG US ORDERABLES Final Resu lt documented in this encounter Visit Diagnoses Not on filedocumented in this encounter Care Teams Order Checker Packer Processer Relationship Specialty Start Date End Date Nataliia Porras MD [address] [place] [address] [place] [phone] PCP - General Internal Medicine 08/14/18 documented as of this encounter
--- OUTSIDE RECORDS SUMMARY | 2024-10-28 07:44 | XMS_ITS ---
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 Problem 283762719 Gastroesophageal reflux disease without esophagitis (K21.9) Active confirmed Encounters Encounter Location Date Provider Diagnosis [facility] [address] [place] [phone] 08/21/2023 Nigel Jensen 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 K22.70 and Gastroesophageal reflux disease without esophagitis K21.9 Assessments Encounter Date Diagnosis (ICD Code) Assessment Notes Treatment Notes Treatment Clinical Notes Section Notes 08/21/2023 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 Start Omeprazole Capsule Delayed Release, 20 MG, Orally, 90, 1, Every morning, 90 days, Refills=3 Subjective: * Chief Complaints: * ??? * Medical History:? * Surgical History:? * Hospitalization/Major Diagno stic Procedure:? * Medications:? Objective: Assessment: * Assessment: 1.?Astudillo's esophagus witho ut dysplasia - K22.70?2.?Gastroesophageal reflux disease without esophagitis - K21.9? Plan: * Treatment: * Procedure Codes:? * true * Date:? Generated for Coral saleem/[place]if[place]/eTmitchellsmitting on:?10/28/2024 07:44 AM EDT
--- OUTSIDE RECORDS SUMMARY | 2024-10-28 07:44 | XMS_ITS | Encounter Summary ---
Author Organization [facility] Address [address] [place] [address] Care Team Providers Care Lead Refiner Name Role Phone Nataliia Porras MD Primary Care Provider [phone] Encounter Details Date Type Department Care Team (Late st Contact Info) Description 10/13/2018 Scanned Document [facility] [address] [facility] [address] [facility] [place] [address] Fermin Brandt MD [address] [place] [phone] Social History Tobacco Use Types Packs/Day Years Used Date Smoking Tobacco: Never Assessed Sex and Gender Information Value Date Recorded Sex Assigned at Not on file Legal Sex Male 3:47 PM EST Gender Identity Not on file Sexual Orientation Not on file documented as of this encounter Plan of Treatment Not on file documented as of this encounter Visit Diagnoses Not on filedocumented in this encounter Care Teams Lead Refiner Relationship Specialty Start Date End Date Nataliia Porras MD [address] [place] [address] [place] [phone] PCP - General Internal Medicine 08/14/18 documented as of this encounter
--- OUTSIDE RECORDS SUMMARY | 2024-10-28 07:44 | XMS_ITS | Encounter Summary ---
Author Organization [facility] Address [address] [place] [address] Care Team Providers Care General Foundry Worker Name Role Phone Nataliia Porras MD Primary Care Provider Reason for Referral * Imaging (Routine) - Closed Specialty Diagnoses / Procedures Referred By Yo huerta Referred To Contact Diagnostic Radiology Procedures US Duplex Carotid Bilateral Complete Neurosurgery at [address] [place] [address] Phone: tel: fax: Referral ID Status Reason Start Date Expiration Date Visits Re quested Visits Authorized [id number] Closed 03/07/2023 03/06/2024 1 1 Encounter Details Date Type Department Care Team ([facility] st Contact Info) Description 03/07/2023 Scanned Document Neurosurgery at [address] [place] [address] Luanne Hair . Social History Tobacco Use [...] Comments US DUPLEX CAROTID BILATERAL COMPLETE Routine 02/14/2023 documented in this encounter Results * US Duplex Carotid Bilateral Complete (02/14/2023) Anatomical Region Laterality Modality Vascular, Neck Ultrasound us Historical Provider IMG US ORDERABLES Final Resu lt documented in this encounter Visit Diagnoses Not on filedocumented in this encounter Care Teams General Foundry Worker Relationship Specialty Start Date End Date Nataliia Porras MD [address] [place] [address] [place] [phone] PCP - General Internal Medicine 08/14/18 documented as of this encounter
--- OUTSIDE RECORDS SUMMARY | 2024-10-28 07:44 | XMS_ITS | Encounter Summary ---
Author Organization [facility] Address [address] [place] [address] Care Team Providers Care Rubber Turner Name Role Phone Nataliia Porras MD Primary Care Provider [phone] Encounter Details Date Type Department Care Team (Late st Contact Info) Description 03/23/2019 Abstract [facility] [address] [facility] [place] [address] Fermin Brandt MD [address] [place] [phone] Social History Tobacco Use Types Packs/Day Years [...] on filedocumented in this encounter Care Teams Rubber Turner Relationship Specialty Start Date End Date Nataliia Porras MD [address] [place] [address] [place] [phone] PCP - General Internal Medicine 08/14/18 documented as of this encounter
--- OUTSIDE RECORDS SUMMARY | 2024-10-28 07:44 | XMS_ITS | Patient Health Record ---
Author Organization [facility] Address [address] [place] [address] Care Team Providers Care Sample Distributor Name Role Phone Nataliia Porras MD Primary Care Provider Nigel Williamson [phone] Allergies No Known Allergies Reason For Referral No Information Medications Medication SIG (Take, Route, Frequency, Duration) Notes Start Date End Date Status Zetia 10 MG 1 tablet Orally Once a day for 30 day(s) Active amLODIPine Besylate 2.5 MG TAKE 1 TABLET BY MOUTH EVERY DAY Oral for 90 Active CoQ-10 Active traMADol HCl 50 MG 1 tablet as needed Orally Once a day PRN Back pain Active Omeprazole 20 MG 1 capsule Orally Every morning for 30 days Active Glucosamine Chond MSM Formula - as directed Orally Active Aspir-81 81mg 1 tablet Orally Once a day Active Multi Vitamin/Minerals Active Carvedilol 3.125 MG Orally twice a day Active Losartan Potassium 100 MG Oral for 90 Active Rosuvastatin Calcium 20 MG Oral for 90 Active Social History Tobacco Use: Social History Observation Description Date Details (start date - stop date) Former Smoker NA - NA Tobacco Use/Smoking Question Answer Notes Patient is a former smoker How long has it been since you last smoked? 5-10 years Section Notes: Nonsmoker x 2 months; no alc ohol Nonsmoker > 5yrs; no alcohol Nonsmoker > 5yrs; no alcohol Nonsmoker > 5yrs; no alcohol Problems Problem Type SNOMED Code ICD Code Onset Dates Problem Status W/U Status Risk Notes Problem 028392268 Colon cancer screening (Z12.11) Active confirmed Problem 912381963 Encounter for screening for malignant neoplasm of colon (Z12.11) Active confirmed Problem 936405497 History of adenomatous polyp of colon (Z86.010) Active confirmed Problem History of polyp of colon (situation) (734852963) Personal history of colonic polyps (Z86.010) Active confirmed Problem 946723109 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 Problem Diverticular disease of colon (295147384) Diverticulosis of large intestine without perforation or abscess without bleeding (K57.30) Active confirmed Problem Gastroesophageal reflux disease (034232677) Gastroesophageal reflux disease (K21.9) Active confirmed Problem 786491377 Gastroesophageal reflux disease without esophagitis (K21.9) Active confirmed Problem 575777806878484 Preprocedural examination (Z01.818) Active confirmed Problem 040140326 Long-term use of aspirin therapy (Z79.82) Active confirmed Problem Astudillo esophagus (949550415) 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) Active confirmed Problem Astudillo's esophagus (067985753) Astudillo''s esophagus without dysplasia (K22.70) Active confirmed Problem 686205795 Gastroesophageal reflux disease, unspecified whether esophagitis present (K21.9) Active confirmed Problem Diaphragmatic hernia (04708387) Hernia, hiatal (K44.9) Active confirmed Problem Gastroesophageal reflux disease (816162994) Chronic GERD (K21.9) Active confirmed Vital Signs Blood pressure diastolic 00 mm Hg 01/13/2024 Height 65 in 01/13/2024 Blood pressure systolic 00 mm Hg 01/13/2024 Weight 154 lbs 01/13/2024 BMI 25.62 kg/m2 01/13/2024 Encounters Encounter Location Date Provider Diagnosis [facility] [address] 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 01/13/2024 Chronic GERD (ICD-10 - K21.9) Overall, [...] advised of his progress. Plan Of Treatment Pending Test Test Name Order Date Pathology 08/21/2023 Future Test Test Name Order Date COLONOSCOPY 06/30/2012 COLONOSCOPY 03/10/2018 UPPER GI ENDOSCOPY 05/22/2023 COLONOSCOPY 05/22/2023 Insurance Providers Payer Name Payer Address Payer Phone Subscriber Number Group Number Insured Name Patient Relationship to Insured Coverage Start Date Coverage End Date MEDICARE OF [place] [address] [place] [phone] [id number] OSBALDO WALLACE Self - patient is the insured [employer] ATT[employer] CLAIMS [address] [place] [phone] [id number] OSBALDO WALLACE Self - patient is the insured Medical (General) History Medical History History ICD Code HTN CAD-had positive ETT-no AL Denies AL,DM,CVA,Lung disease,renal dise ase Hyperlipidemia Negative colonoscopy 10 years ago at [facility] by Dr. Matthews TIA Colonoscopy 10/2012--2 small tubular toño omas removed Gallstones--asymptomatic--reviewed with him on 03/10/18 Negative colonoscopy in 03/2018 Negative colonoscopy in 2017 GERD-upper endoscopy in 2023 revealed a moderate-sized hiatal hernia and a long segment of Astudillo's esophagus. There was no esophagitis and all biopsies were negative for any dysplasia. Negative screening colonoscopy in 2023 Surgical History Surgery Date(Month/Year) 4-V CABG-fine since then 05/20/12 Facial fractures Back L3-L4 Back S1- L4 10/2016 Right carotid Cataract-lens implants
--- OUTSIDE RECORDS SUMMARY | 2024-10-28 07:44 | XMS_ITS ---
Author Organization [facility] Address [address] [place] [address] Care Team Providers Care Leguillon Debeader Name Role Phone Nataliia Porras MD Primary Care Provider Nigel Williamson [phone] REASON FOR VISIT please schedule f/u with Dr. Jensen Encounters Encounter Location Date Provider Diagnosis [facility] [address] [place] [phone] 08/25/2023 Nigel Jensen Plan Of Treatment No Information Progress Notes * AMINA WALLACE MDOB: 6 (78 yo M)Acc No.[id number]:08/25/2023 Patient:?AMINA WALLACE :1945???Age:78 Y???Sex:Male Address:[address] [place] [address], [address] * true * Date:? Generated for Printi ng/Dorag/eTransmitting on:?10/28/2024 07:43 AM EDT
--- OUTSIDE RECORDS SUMMARY | 2024-10-28 07:44 | XMS_ITS | Encounter Summary ---
Author Organization [facility] Address [address] [place] [address] Care Team Providers Care Aperture Mask Etcher Name Role Phone Nataliia Porras MD Primary Care Provider [phone] Reason for Visit * Reason Comments Other Encounter Details Date Type Department Care Team ([facility] Contact Info) Description 01/09/2022 Telephone [facility] SCHEDULING [address] [place], [place] [address] Fermin Brandt MD [address] [place] [phone] Other Social History Tobacco Use Types Packs/Day [...] encounter Miscellaneous Notes * Telephone Encounter - Mikaela Oglesby - 01/09/2022 9:46 AM EDT [facility] MESSAGE Time of call: 9:46 AM Caller: OSBALDO Caller's relationship to patient: SELF Calling from Reason for call: Pt would like imaging order sent to [facility] in [facility] If not feeling well, what are symptoms: If having symptoms, how long have the symptoms been present: Does caller request to speak to someone urgently? If yes, warm transferred to: Best telephone number for callback: [phone] Best time to return call: Permission to leave message: Mikaela Oglesby documented in this encounter Plan of Treatment Not on file documented as of this encounter Visit Diagnoses Not on filedocumented in this encounter Care Teams Aperture Mask Etcher Relationship Specialty Start Date End Date Nataliia Porras MD [address] [place] [address] [place] [phone] PCP - General Internal Medicine 08/14/18 documented as of this encounter
[2024-10-28 07:55] LABS: MANUAL DIFF FLAG NO
[2024-10-28 08:37] LABS: Basophils Absolute Auto 0.1 X10*3/uL (0.0-0.2); Basophils Percent Auto 0.7 % (0-2); Eosinophils Absolute Auto 0.8 X10*3/uL (0.0-0.4); Eosinophils Percent Auto 11.5 % (0-4); Hematocrit 42.5 % (42.0-52.0); Hemoglobin 14.9 g/dl (14.0-18.0); Imm Gran Abs Auto 0.02 X10*3/uL (0.00-0.03); Imm Gran Pct Auto 0.3 % (0.0-0.4); Lymphocytes Absolute Auto 1.2 X10*3/uL (1.2-4.9); Lymphocytes Percent Auto 16.4 % (20-40); Mean Corpuscular HGB Conc 35.1 g/dl (31.0-36.0); Mean Corpuscular Hemoglobin 31.8 pg (27.0-33.0); Mean Corpuscular Volume 90.8 fL (80.0-98.0); Mean Platelet Volume 10.2 fL (9.4-12.4); Monocytes Absolute Auto 0.7 X10*3/uL (0.1-1.2); Monocytes Percent Auto 9.6 % (2-11); Neutrophils Absolute Auto 4.4 x10*3/uL (2.0-8.3); Neutrophils Percent Auto 61.5 % (45-73); Platelet Count 203 X10*3/uL (160-400); Red Blood Count 4.68 X10*6/uL (4.60-5.80); Red Cell Distribution Width 12.8 % (11.0-16.0); White Blood Count 7.1 X10*3/uL (4.8-10.8)
[2024-10-28 08:50] LABS: Estimated Average Glucose 117 mg/dL; Hemoglobin A1c % 5.7 % (<6.0); Total Hemoglobin (HGBA1C) 3895.7113 umol/L
[2024-10-28 09:09] LABS: B Type Natriuretic Peptide 47 pg/mL (<100)
[2024-10-28 09:11] LABS: Alanine Aminotransferase 23 U/L (0-40); Albumin Level 4.5 g/dL (3.5-5.0); Alkaline Phosphatase 59 U/L (39-117); Anion Gap 12 (12-20); Aspartate Amino Transferase 31 U/L (5-37); Bilirubin Total 1.7 mg/dL (0.0-1.0); Blood Urea Nitrogen 14 mg/dL (9-16); Calcium 9.5 mg/dL (8.4-10.2); Carbon Dioxide 27 mmol/L (22-29); Chloride 106 mmol/L (96-108); Cholesterol 113 mg/dL (<200); Estimated Glomerular Filt Rate > 60; Glucose Random 105 mg/dL (60-115); HDL Cholesterol 51 mg/dL (>40); LDL Cholesterol Calculated 48 mg/dL (<100); Potassium 4.4 mmol/L (3.3-5.1); Sodium 141 mmol/L (135-145); Total Protein 7.2 g/dL (6.5-8.0); Triglycerides 73 mg/dL (<150)
[2024-10-28 09:25] LABS: Free T4 (Free Thyroxine) 0.91 ng/dL (0.71-1.85); Thyroid Stimulating Hormone 2.77 uIU/mL (0.32-4.0)
[2024-10-28 09:39] LABS: Folate > 20.0 ng/mL (> or = 4.0); Vitamin B12 729 pg/mL (200-900)
== END 2024-10-28 07:41 | disposition home or self-care (01) ==
LOC: HO.LAB 07:40
PROVIDERS: PCP Internal Medicine; Visit Provider Internal Medicine
DX: I25.10 Atherosclerotic heart disease of native coronary artery without angina pectoris (principal); E78.00 Pure hypercholesterolemia, unspecified; R73.02 Impaired glucose tolerance (oral)
CPT/HCPCS: 36415; 80053; 80061; 82607; 82746; 83036; 83880; 84439; 84443; 85025

== ENCOUNTER 2024-11-01 09:39 | Outpatient (AMB) | payer MEDICARE, SELFPAY ==
[2024-11-01 09:40] VITALS: BP 114/62; PULSE 67; TEMP 36.2; O2SAT 97; BMI 26.5
--- NOTE | 2024-11-01 09:40 | A.OFFPC_ITS ---
Vital Signs 11/01/24 09:40 Height 5 ft 4 in Weight 154 lb 6 oz BMI 26.5 BP 114/62 Blood Pressure Location Lt brachial Position Sitting Pulse 67 Pulse Source Pulse Oximeter Temp 97.1 F Temp Source Temporal Artery Scan Pulse Oximetry (%) 97 Oxygen Delivery Method Room Air Intake Visit Reasons: cad Allergies lisinopril Allergy (Unknown, Verified 11/01/24 09:42) tiredness, cough Medication List - Last Reconciled 11/01/24 by Nataliia Porras MD amlodipine 2.5 mg PO DAILY aspirin (Adult Aspirin Regimen) 81 mg PO DAILY carvedilol 3.125 mg PO BID 90 days coenzyme Q10 (Co Q-10) 100 mg PO DAILY ezetimibe (Zetia) 10 mg PO DAILY losartan 100 mg PO DAILY 90 days multivitamin 1 tab PO DAILY omeprazole 20 mg PO DAILY rosuvastatin 20 mg PO BEDTIME ticagrelor (Brilinta) 90 mg PO BID tramadol 50 mg PO TID PRN 30 days Tobacco use date assessed: 11/01/24 Fall risk assessment: No Falls in past year Last assessed Fall Risk: 11/01/24 Dental Screening Dental Screen Date: 11/01/24 Did you have a dental visit in the last 12 months?: Yes Did you have a dental problem in the last 6 months where you did not have access to dental care?: No Was dental information given to patient?: Patient has dentist [facility] Medical History Bilateral hand numbness Trigger finger of right hand Screening for prostate cancer Positive Lyme disease serology Lumbar nerve root compression Cholelithiasis Diverticular disease Peripheral neuropathy Hypercholesterolemia Hypertension Bilateral carotid artery stenosis Anxiety TIA (transient ischemic attack) Lumbar degenerative disc disease Coronary artery disease Erectile dysfunction Asthma Surgical History History of heart artery stent History of cardiac catheterization History of colonoscopy History of lumbar surgery History of surgery History of carotid endarterectomy History of cataract surgery History of coronary artery bypass graft History of eye surgery Family History Father Myocardial infarction Hypertension CVD (cardiovascular disease) Mother Hypertension Skin cancer Paternal Grandfather Myocardial infarction Paternal Uncle Myocardial infarction Social History Housing: House Alcohol intake: current Alcohol intake frequency: holidays/special occasions only Patient Tobacco Use Status: Former Tobacco user Tobacco use type: Cigarette e-Cigarette/Vaping Use: Never Used Second Hand Smoke Exposure: No service: No Current occupational status: retired Current occupation: rt hand Cognitive needs: No Hearing needs: No Vision needs: Yes Questionnaire PHQ-9 Over the last 2 weeks, how often have you been bothered by any of the following problems? 1. Little interest or pleasure in doing things: not at all 2. Feeling down, depressed, or hopeless: not at all 3. Trouble falling or staying asleep, or sleeping too much: not at all 4. Feeling tired or having little energy: not at all 5. Poor appetite or overeating: not at all 6. Feeling bad about yourself - or that you are a failure or have let yourself or your family down: not at all 7. Trouble concentrating on things, such as reading the newspaper or watching television: not at all 8. Moving or speaking so slowly that other people could have noticed. Or the opposite - being so fidgety or restless that you have been moving around a lot more than usual: not at all 9. Thoughts that you would be better off or of hurting yourself in some way: not at all Total score: 0 Depression Screening Interpretation: Negative Depression Screening Done: Yes 43779 - PHQ-9 Billing: Yes Source: Developed by Drs. Nigel Espitia, Lisa Greene, Archie Morales and colleagues, with an educational inge from [employer]. Thrive Questionnaire Date Thrive assessed: 11/01/24 I am a: Patient What is your living situation today?: I have a steady place to live Within the past 12 months, did the food you bought not last and you didn't have the money to get more?: Never true Within the past 12 months, did you worry whether your food would run out before you got money to buy more?: Never true Do you have trouble paying for medicines?: No Do you have trouble getting transportation to medical appointments?: No Do you have trouble paying your heating and electricity bill?: No Do you have trouble taking care of your child, family member or friend?: No Do you have trouble with day-to-day activities such as bathing, preparing meals, shopping, managing finances, etc.?: No Are you currently unemployed and looking for a job?: No Are you interested in more education?: No THRIVE Score: 0 AUDIT C Alcohol Use Questionnaire (AUDIT-C) 1. How often do you have a drink containing alcohol?: Never 3. How often do you have six or more drinks on one occasion?: Never Total Score: 0 AYANA-7 AMB Questionnaire AYANA-7 Date AYANA - 7 assessed: 11/01/24 Feeling nervous, anxious, or on edge: 0 = Not at all Not being able to stop or control worryin = Not at all Worrying too much about different things: 0 = Not at all Trouble relaxin = Not at all Being so restless that it is hard to sit still: 0 = Not at all Becoming easily annoyed or irritable: 0 = Not at all Feeling afraid as if something awful might happen: 0 = Not at all Total AYANA-7 score (0-4 normal; 5-9 mild; 10-14 moderate; 15-21 severe): 0 Source: Developed by Drs. Nigel Espitia, Lisa Greene, Archie Morales and colleagues, with an educational inge from [employer]. AYANA-7 Assessment Billing AYANA-7 Assessment Tool: AYANA-7 Assessment 82726 Physical exam (Primary Care) Vital Signs: Last Vital Signs Temp 97.1 F 11/01/24 09:40 Pulse 67 11/01/24 09:40 BP 114/62 11/01/24 09:40 Pulse Ox 97 11/01/24 09:40 Oxygen Delivery Method Room Air 11/01/24 09:40 BMI result Body Mass Index 26.5 Tobacco/Smoking Status: Tobacco use Status Tobacco use date assessed 11/01/24 11/01/24 09:44 Patient Tobacco Use Status Former Tobacco user 11/01/24 09:44 Tobacco use type Cigarette 11/01/24 09:44 e-Cigarette/Vaping Use Never Used 11/01/24 09:44 PHQ-9: PHQ-9 Score PHQ-9: Total score 0 11/01/24 09:44 Depression Screening Interpretation: Negative Thrive Assessment: Date of Thrive Assessment Date Thrive assessed 11/01/24 11/01/24 09:44 Const General: alert; No acute distress Eyes Conjunctivae: conjunctivae normal Resp Auscultation: clear to auscultation bilaterally Cardio Rate: regular rate Rhythm: regular rhythm GI Inspection: Yes normal to inspection Extrem General: Yes normal to inspection and No edema Coding Level of Care Code Est Pt Level 4 (31196) Diagnoses Coronary artery disease involving absentee-shawnee coronary artery of absentee-shawnee heart without angina pectoris I25.10 Coronary Disease-Associated Artery/Lesion type: absentee-shawnee artery [place] vs. transplanted heart: absentee-shawnee heart Associated angina: without angina Asthma J45.909 Degeneration of intervertebral disc of lumbar region with discogenic back pain M51.360 Disc-related pain type: discogenic back pain only Essential hypertension I10 Hypertension type: essential hypertension Hypercholesterolemia E78.00 Fatty liver K76.0 Impaired glucose tolerance R73.02 Additional Codes AYANA-7 Assessment Billing - AYANA-7 Assessment Tool: AYANA-7 Assessment 92173 ([id number]) PHQ-9 - 05278 - PHQ-9 Billing: Yes ([id number]) Assessment & Plan Assessment & Plan (1) Coronary artery disease: Comment: follows w/[facility] March 2024 Cardiac cath [address] Barton Code(s): I25.10 - Atherosclerotic heart disease of absentee-shawnee coronary artery without angina pectoris Category: Medical Qualifiers: Coronary Disease-Associated Artery/Lesion type: absentee-shawnee artery [place] vs. transplanted heart: absentee-shawnee heart Associated angina: without angina Qualified Code(s): I25.10 - Atherosclerotic heart disease of absentee-shawnee coronary artery without angina pectoris Plan: Patient on dual antiplatelet therapy, Control the cholesterol, weight, blood pressure, diabetes on aspirin 81 mg once a day and Brilinta (2) Asthma: Comment: pt denies Code(s): J45.909 - Unspecified asthma, uncomplicated Category: Medical Plan: Stable (3) Lumbar degenerative disc disease: Code(s): M51.36 - Other intervertebral disc degeneration, lumbar region Category: Medical Qualifiers: Disc-related pain type: discogenic back pain only Qualified Code(s): M51.360 - Other intervertebral disc degeneration, lumbar region with discogenic back pain only Plan: Presently on tramadol for pain as needed (4) Hypertension: Code(s): I10 - Essential (primary) hypertension Category: Medical Qualifiers: Hypertension type: essential hypertension Qualified Code(s): I10 - Essential (primary) hypertension Plan: Continue with blood pressure medication. Decrease salt intake and exercise on losartan 100 mg once a day amlodipine 2.5 mg once a day carvedilol 3.125 mg twice a day (5) Hypercholesterolemia: Code(s): E78.00 - Pure hypercholesterolemia, unspecified Category: Medical Plan: Avoid fried foods, chicken skin, eggs, butter margarine, pastries and meat. Be it pork or beef they have a lot of cholesterol LDL goal of less than 70 and triglyceride of less than 150 on Zetia 10 mg once a day and rosuvastatin 20 mg at bedtime (6) Fatty liver: Code(s): K76.0 - Fatty (change of) liver, not elsewhere classified Category: Medical Plan: Low-fat diet and exercise (7) Impaired glucose tolerance: Code(s): R73.02 - Impaired glucose tolerance (oral) Category: Medical Plan: Decrease the amount of carbohydrate intake, pasta, bread, rice and potatoes are all sugar and that is aside from all the sweet stuff, remember that fruits are good but they are Sweet also. Discussed that hemoglobin A1c has risen up to 5.7. Plan History of Present Illness The patient is a 79-year-old male presenting with a follow-up for chronic conditions management. He has a notable history of coronary artery disease, having undergone recent cardiac catheterization and PCI interventions. The patient also manages asthma, lumbar degenerative disc disease, hypertension, and hypercholesterolemia with prescribed medications. He has impaired glucose t olerance as evidenced by a recent increase in hemoglobin A1c to 5.7. Further, he concerns himself with generalized anxiety, reportedly associated with jealousy, and GERD for which he continues management. Health Maintenance - Fasting blood sugar and hemoglobin A1c checked; noted increase to 5.7. - Optimal LDL level at 48 achieved, cholesterol well controlled on current therapy. - Recapture of screening colonoscopy in August 2023 post initial test in March 2018. - Recommendation for tetanus booster as last reported tetanus vaccination was in 2013. - Emphasis on continued no-fat diet and exercise for weight and cardiovascular risk reduction. Social History - Currently lives with family and is active in managing household tasks. - Adheres to a healthy diet with reduced intake of sugars and carbohydrates. - Participates in regular physical activity, including visiting a senior center for workouts. Review of Systems - Cardiac: Reports successful outcomes post-stent placement and cardiac rehab. - Pulmonary: Denies current asthma exacerbations. - Musculoskeletal: Reports pain due to lumbar disc disease, uses tramadol as needed. - Gastrointestinal: Reports GERD; dietary management is in place. - Endocrine: Reports elevated A1c, monitoring diabetes risk. - Allergic: Reports elevated eosinophils, likely due to allergy; specific trigger unidentified. Physical Exam Results - Labs: Normal blood count, high eosinophil count, normal sodium, potassium, stable renal function, fasting blood sugar of 105, hemoglobin A1c of 5.7, LDL of 48, HDL of 51, normal TSH. - Diagnostics: Recent cardiac catheterization finding severe coronary artery disease. Plan 1. Tramadol will be used for lumbar disc disease-related pain as needed. Lifestyle modifications will address rising blood sugar levels. Follow-up labs to monitor blood glucose and hemoglobin A1c levels will be completed in six months, and an upcoming tetanus booster is recommended.: Patient was informed and verbally consented to the use of an ambient scribe for clinic note documentation during this visit. Discussion Notes Throughout the visit, I discussed with the patient his management for coronary artery disease, including the importance of adherence to dual antiplatelet therapy and current medication regimen for cholesterol and hypertension. We reviewed the benefits of maintaining LDL levels below 70 and the necessity of continuing current medications. I explained the connection between his elevated A1c level and dietary choices, suggesting modifications to prevent further elevation. We discussed the mild elevation in eosinophils likely representing an allergy issue, advising further assessment if symptoms worsen. Follow-ups for blood sugar monitoring and the potential need for a tetanus booster were outlined for ongoing care. Patient Instructions - Continue current medications as prescribed for heart disease, cholesterol, and blood pressure. - Maintain a no-fat diet and regular exercise routine. - Monitor blood sugar levels, follow dietary recommendations, and reduce sugar intake. - Use tramadol for pain management as needed. - Consider allergy symptoms and seek qcos-hqf-oeawjus solutions such as Claritin if necessary. - Schedule and complete a tetanus booster at your local pharmacy. - Return for fasting blood sugar and A1c check in six months. - Contact healthcare provider if you experience any new or worsening symptoms. Orders: Orders Thyroid Stimulating Hormone 6 Months I25.10 - Atherosclerotic heart disease of absentee-shawnee coronary artery without angina pectoris Vitamin B12 and Folate 6 Months I25.10 - Atherosclerotic heart disease of absentee-shawnee coronary artery without angina pectoris Complete Blood Count Auto Diff 6 Months I25.10 - Atherosclerotic heart disease of absentee-shawnee coronary artery without angina pectoris Comprehensive Met. Panel 6 Months I25.10 - Atherosclerotic heart disease of absentee-shawnee coronary artery without angina pectoris Lipid Panel 6 Months E78.00 - Pure hypercholesterolemia, unspecified, I25.10 - Atherosclerotic heart disease of absentee-shawnee coronary artery without angina pectoris Hemoglobin A1c 6 Months I25.10 - Atherosclerotic heart disease of absentee-shawnee coronary artery without angina pectoris Free T4 (Free Thyroxine) 6 Months I25.10 - Atherosclerotic heart disease of absentee-shawnee coronary artery without angina pectoris Magnesium 6 Months I25.10 - Atherosclerotic heart disease of absentee-shawnee coronary artery without angina pectoris Medications: New rosuvastatin 20 mg PO BEDTIME 90 tabs 3RF
--- OUTSIDE RECORDS SUMMARY | 2024-11-01 10:47 | XMS_ITS ---
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 Start Omeprazole Capsule Delayed Release, [...] true * Date:? Generated for Coral saleem/Clifton/eTmitchellsmitting on:?11/01/2024 10:47 AM EDT
--- OUTSIDE RECORDS SUMMARY | 2024-11-01 10:47 | XMS_ITS | Encounter Summary ---
Author Organization [facility] Address [address] [place] [address] Care Team Providers Care Social Media Sr Strategy Manager Name Role Phone Nataliia Porras MD Primary Care Provider [phone] Encounter Details Date Type Department Care Team (Late st Contact Info) Description 04/15/2019 Scanned Document [facility] [address] [facility] [address] [facility] [place] [address] Fermin Brandt MD [address] [place] [phone] Social History Tobacco Use Types Packs/Day Years [...] on filedocumented in this encounter Care Teams Social Media Sr Strategy Manager Relationship Specialty Start Date End Date Nataliia Porras MD [address] [place] [address] [place] [phone] PCP - General Internal Medicine 08/14/18 documented as of this encounter
--- OUTSIDE RECORDS SUMMARY | 2024-11-01 10:47 | XMS_ITS | Encounter Summary ---
Author Organization [facility] Address [address] [place] [address] Care Team Providers Care Programming Equipment Operator Name Role Phone Nataliia Porras MD Primary Care Provider [phone] Encounter Details Date Type Department Care Team (Late st Contact Info) Description 03/23/2019 Abstract [facility] [address] [facility] [address] [facility] [place] [address] Fermin Brandt MD [address] [place] [phone] Social History Tobacco Use Types Packs/Day Years [...] on filedocumented in this encounter Care Teams Programming Equipment Operator Relationship Specialty Start Date End Date Nataliia Porras MD [address] [place] [address] [place] [phone] PCP - General Internal Medicine 08/14/18 documented as of this encounter
--- OUTSIDE RECORDS SUMMARY | 2024-11-01 10:47 | XMS_ITS | Encounter Summary ---
Author Organization [facility] Address [address] [place] [address] Care Team Providers Care Liquor Establishment Manager Name Role Phone Nataliia Porras MD Primary Care Provider [phone] Encounter Details Date Type Department Care Team (Late st Contact Info) Description 03/23/2019 Abstract [facility] [address] [facility] [address] [facility] [place] [address] Fermin Brandt MD [address] [place] [phone] Social History Tobacco Use Types Packs/Day Years [...] on filedocumented in this encounter Care Teams Liquor Establishment Manager Relationship Specialty Start Date End Date Nataliia Porras MD [address] [place] [address] [place] [phone] PCP - General Internal Medicine 08/14/18 documented as of this encounter
--- OUTSIDE RECORDS SUMMARY | 2024-11-01 10:47 | XMS_ITS | Patient Health Record ---
Author Organization [facility] Address [address] [place] [address] Care Team Providers Care Endless Track Vehicle Mechanic Name Role Phone Nataliia Porras MD Primary Care Provider Nigel Williamson [phone] Allergies No Known Allergies Reason For Referral [...] Problem Status W/U Status Risk Notes Problem 140148572 Colon cancer screening (Z12.11) Active confirmed Problem 781821438 Encounter for screening for malignant neoplasm of colon (Z12.11) Active confirmed Problem 680727469 History of adenomatous polyp of colon (Z86.010) Active confirmed Problem History of polyp of colon (situation) (709076204) Personal history of colonic polyps (Z86.010) Active confirmed Problem 542311643 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 Problem Diverticular disease of colon (913448641) Diverticulosis of large intestine without perforation or abscess without bleeding (K57.30) Active confirmed Problem Gastroesophageal reflux disease (893467776) Gastroesophageal reflux disease (K21.9) Active confirmed Problem 109044521 Gastroesophageal reflux disease without esophagitis (K21.9) Active confirmed Problem 241712901867593 Preprocedural examination (Z01.818) Active confirmed Problem 760350314 Long-term use of aspirin therapy (Z79.82) Active confirmed Problem Astudillo esophagus (527526629) 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) Active confirmed Problem Astudillo's esophagus (743000926) Astudillo''s esophagus without dysplasia (K22.70) Active confirmed Problem 446544483 Gastroesophageal reflux disease, unspecified whether esophagitis present (K21.9) Active confirmed Problem Diaphragmatic hernia (48051502) Hernia, hiatal (K44.9) Active confirmed Problem Gastroesophageal reflux disease (012481655) Chronic GERD (K21.9) Active confirmed Vital Signs Blood pressure diastolic 00 mm Hg 01/13/2024 Height 65 in 01/13/2024 Blood pressure systolic 00 mm Hg 01/13/2024 Weight 154 lbs 01/13/2024 BMI 25.62 kg/m2 01/13/2024 Encounters Encounter Location Date Provider Diagnosis [facility] [address] [facility] [address] [place] [phone] 01/13/2024 Nigel Jensen Chronic GERD K21.9 ; [...] Date MEDICARE OF [place] [address] [place] [phone] [id number] OSBALDO WALLACE Self - patient is the insured [employer] ATT[employer] CLAIMS [address] [place] [phone] [id number] OSBALDO WALLACE Self - patient is the insured Medical (General) History Medical History History ICD Code HTN CAD-had positive ETT-no [place] Denies [place],DM,CVA,Lung disease,renal dise ase Hyperlipidemia Negative colonoscopy 10 [...]
--- OUTSIDE RECORDS SUMMARY | 2024-11-01 10:47 | XMS_ITS ---
Author Organization [facility] Address [address] [place] [address] Care Team Providers Care Job Setter Honing Name Role Phone Nataliia Porrsa MD Primary Care Provider Nigel Williamson [phone] Allergies No Known Allergies REASON FOR VISIT [...] Status Risk Notes Problem Gastroesophageal reflux disease (779005849) Chronic GERD (K21.9) Active confirmed Problem Astudillo's esophagus (338855476) Astudillo''s esophagus without dysplasia (K22.70) Active confirmed Problem Diaphragmatic hernia (31276490) Hernia, hiatal (K44.9) Active confirmed Vital Signs Blood pressure systolic 00 mm Hg 01/13/20 24 Blood pressure diastolic 00 mm Hg 024 Height 65 in 01/13/2024 Weight 154 lbs 01/13/2024 BMI 25.62 kg/m2 01/13/2024 Encounters Encounter Location Date Provider Diagnosis [facility] [address] [place] [address] 01/13/2024 Nigel Jensen Chronic GERD K21.9 ; [...] OSBALDO WALLACE MDOB: 6 (78 yo M)Acc No.[id number]:01/13/2024 Progress Notes Patient:?KATHIE WALLACEY Jacinta Provider:?Nigel Jensen MD :1945???Age:78 Y???Sex:Male Lupillo e:01/13/2024 Address:[address] [place] [address] , [facility] Pcp:Nataliia Porras MD Subjective: * Chief Complaints: [...] Every morning.?? * Procedure Codes:?1036F TOBAC CO [id number] BP SCR NOT PRFRM REC REASON NOS * Preventive Medicine:? ??Counseling:?Care goal follow-up plan:?Above Normal BMI Follow-up?Giving encouragement to exercise,?BMI management provided?Yes.? * Follow Up:?prn * * Sign off status: Completed true * Provider:?Nigel Jensen MD Date:? 024 Generated for Coral saleem/Clifton/Dukeitting on:?11/01/2024 10:47 AM EDT History and Physical Notes * [...]
--- OUTSIDE RECORDS SUMMARY | 2024-11-01 10:47 | XMS_ITS | Encounter Summary ---
Author Organization [facility] and [facility] Address [address] [place] [address] Care Team Providers Care Homeopathic Doctor Name Role Phone Nataliia Porras MD Primary Care Provider [phone] Reason for Referral * Imaging (Routine) - Closed Specialty Diagnoses / Procedures Referred By Yo huerta Referred To Contact Diagnostic Radiology Procedures US Duplex Carotid Bilateral Complete Neurosurgery at [address] [place] [address] Phone: tel: fax: Referral ID Status Reason Start Date Expiration Date Visits Re quested Visits Authorized [id number] Closed 03/11/2022 03/11/2023 1 1 Encounter Details Date Type Department Care Team ([facility] st Contact Info) Description 03/11/2022 Scanned Document Neurosurgery at [address] [place] [address] Luanne Hair . Social History Tobacco Use [...] on filedocumented in this encounter Care Teams Homeopathic Doctor Relationship Specialty Start Date End Date Nataliia Porras MD [address] [place] [address] [place] [phone] PCP - General Internal Medicine 08/14/18 documented as of this encounter
--- OUTSIDE RECORDS SUMMARY | 2024-11-01 10:47 | XMS_ITS | Encounter Summary ---
Author Organization [facility] and [facility] Address [address] [place] [address] Care Team Providers Care Binder Roller Name Role Phone Nataliia Porras MD Primary Care Provider [phone] Reason for Referral * Imaging (Routine) - Closed Specialty Diagnoses / Procedures Referred By Yo huerta Referred To Contact Diagnostic Radiology Procedures US Duplex Carotid Bilateral Complete Neurosurgery at [address] [place] [address] Phone: tel: fax: Referral ID Status Reason Start Date Expiration Date Visits Re quested Visits Authorized [id number] Closed 03/07/2023 03/06/2024 1 1 Encounter Details Date Type Department Care Team ([facility] st Contact Info) Description 03/07/2023 Scanned Document Neurosurgery at [address] [place] [address] Luanne Hair . Social History Tobacco Use [...] on filedocumented in this encounter Care Teams Binder Roller Relationship Specialty Start Date End Date Nataliia Porras MD [address] [place] [address] [place] [phone] PCP - General Internal Medicine 08/14/18 documented as of this encounter
--- OUTSIDE RECORDS SUMMARY | 2024-11-01 10:47 | XMS_ITS | Encounter Summary ---
Author Organization [facility] and [facility] Address [address] [place] [address] Care Team Providers Care Income Tax Expert Name Role Phone Nataliia Porras MD Primary Care Provider [phone] Reason for Visit * Reason Comments Other Encounter Details Date Type Department Care Team ([facility] Contact Info) Description 01/09/2022 Telephone [facility] SCHEDULING [address] [place], [place] [address] Fermin Brandt MD [address] [place] [phone] Other Social History Tobacco Use Types Packs/Day [...] 01/09/2022 9:46 AM EDT [facility]ULT MESSAGE Time of call: 9:46 AM Caller: OSBALDO Caller's relationship to patient: SELF Calling from Reason for call: Pt would like imaging order sent to [facility] in [facility] If not feeling well, what are symptoms: If having symptoms, how long have the symptoms been present: Does caller request to speak to someone urgently? If yes, warm transferred to: Best telephone number for callback: [phone] Best time to return call: Permission to leave message: Mikaela Oglesby documented in this encounter Plan of Treatment Not on file documented as of this encounter Visit Diagnoses Not on filedocumented in this encounter Care Teams Income Tax Expert Relationship Specialty Start Date End Date Nataliia Porars MD [address] [place] [address] [place] [phone] PCP - General Internal Medicine 08/14/18 documented as of this encounter
--- OUTSIDE RECORDS SUMMARY | 2024-11-01 10:47 | XMS_ITS ---
Author Organization [facility] Address [address] [place] [address] Care Team Providers Care Patternmaker Sample Name Role Phone Nataliia Porras MD Primary Care Provider Nigel Williamson [phone] REASON FOR VISIT please schedule f/u with Dr. Jensen Encounters Encounter Location Date Provider Diagnosis [facility] [address] [place] [phone] 08/25/2023 Nigel Jensen Plan Of Treatment No Information Progress Notes * AMINA WALLACE MDOB: 6 (78 yo M)Acc No.[id number]:08/25/2023 Patient:?AMINA WALLACE :1945???Age:78 Y???Sex:Male Address:[address] [place] [address], [address] * true * Date:? Generated for Printi ng/Fagilliang/eTransmitting on:?11/01/2024 10:47 AM EDT
--- OUTSIDE RECORDS SUMMARY | 2024-11-01 10:47 | XMS_ITS | Encounter Summary ---
Author Organization [facility] and [facility] Address [address] [place] [address] Care Team Providers Care Sales Support Rep Name Role Phone Nataliia Porras MD Primary Care Provider [phone] Reason for Visit * Reason Comments Other Encounter Details Date Type Department Care Team ([facility] st Contact Info) Description 02/12/2023 Telephone [facility] at [address] [place] [address] Fermin Brandt MD [address] [place] [phone] Other Social History Tobacco Use Types Packs/Day [...] 02/12/2023 12:27 PM EDT [facility] scheduled for [facility] office on 02/14/23 at 11:30 am. Osbaldo notified of the appt. * Telephone Encounter - Mikaela Oglesby - 02/12/2023 11:14 AM EDT [facility] MESSAGE Time of call: 11:14 AM Caller: osbaldo Caller's relationship to patient: Calling from Reason for call: Pt called back to [facility] to fax orders for ultrasound of his cartoid artery. Please fax order to [facility] at [phone] which is a different number to try. He said this has been goingon for a month Best telephone number for callback: [phone] Best time to return call Permission to leave message: Mikaela Oglesby documented in this encounter Plan of Treatment Not on file documented as of this encounter Visit Diagnoses Not on filedocumented in this encounter Care Teams Sales Support Rep Relationship Specialty Start Date End Date Nataliia Porras MD [address] [place] [address] [place] [address] PCP - General Internal Medicine 08/14/18 documented as of this encounter
--- OUTSIDE RECORDS SUMMARY | 2024-11-01 10:47 | XMS_ITS | Encounter Summary ---
Author Organization [facility] and [facility] Address [address] [place] [address] Care Team Providers Care Parts Professional Name Role Phone Nataliia Porras MD Primary Care Provider [phone] Reason for Referral * Imaging (Routine) - Closed Specialty Diagnoses / Procedures Referred By Yo huerta Referred To Contact Diagnostic Radiology Procedures US Duplex Carotid Bilateral Complete Fermin Brandt MD [address] [place] [phone] Phone: tel: fax: Referral ID Status Reason Start Date Expiration Date Visits Re quested Visits Authorized [id number] Closed 03/13/2021 03/13/2022 1 1 Encounter Details Date Type Department Care Team (Late st Contact Info) Description 03/13/2021 Scanned Document [facility] at [address] [place] [address] Fermin Brandt MD [address] [place] [phone] Social History Tobacco Use Types Packs/Day [...] on filedocumented in this encounter Care Teams Parts Professional Relationship Specialty Start Date End Date Nataliia Porras MD [address] [place] [address] [place] [phone] PCP - General Internal Medicine 08/14/18 documented as of this encounter
--- OUTSIDE RECORDS SUMMARY | 2024-11-01 10:48 | XMS_ITS | Encounter Summary ---
Author Organization [facility] Address [address] [place] [address] Care Team Providers Care Salmon Troll Fisher Name Role Phone Nataliia Porras MD Primary Care Provider [phone] Encounter Details Date Type Department Care Team (Late st Contact Info) Description 10/13/2018 Scanned Document [facility] at 800 [facility] [address] [facility] [place] [address] Fermin Brandt MD [address] [place] [phone] Social History Tobacco Use Types Packs/Day Years [...] on filedocumented in this encounter Care Teams Salmon Troll Fisher Relationship Specialty Start Date End Date Nataliia Porras MD [address] [place] [address] [place] [phone] PCP - General Internal Medicine 08/14/18 documented as of this encounter
--- OUTSIDE RECORDS SUMMARY | 2024-11-01 10:48 | XMS_ITS | Clinical Summary ---
Author Organization [address] Address [address] [place] [phone] Phone Care Team Providers Care Risk Engineer Name Role Phone Nataliia Porras MD Primary Care Provider [phone] Allergies No known active allergies Medications traMADol [...] 03/10/2023 HLD (hyperlipidemia) 02/26/2023 03/10/2023 CAD in [place] artery 02/26/2023 03/10/2023 Acute respiratory failure 03/18/2022 [...] age to complete this topic Insurance MEDICARE [facility] MEDICARE [facility] MEDICARE [facility] Care Teams Risk Engineer Relationship Specialty Start Date End Date Nataliia Porras MD [address] [place] [address] Dr F[place], [place] [phone] PCP - General Internal Medicine 08/14/18
== END 2024-11-01 10:13 | disposition home or self-care (01) ==
LOC: HO.HMCH 09:39
PROVIDERS: PCP Internal Medicine; Visit Provider Internal Medicine
DX: I25.10 Atherosclerotic heart disease of native coronary artery without angina pectoris (principal); J45.909 Unspecified asthma, uncomplicated; M51.360 Other intervertebral disc degeneration, lumbar region with discogenic back pain only; I10 Essential (primary) hypertension; E78.00 Pure hypercholesterolemia, unspecified; K76.0 Fatty (change of) liver, not elsewhere classified; R73.02 Impaired glucose tolerance (oral)

== ENCOUNTER → 2024-11-01 09:39 | Outpatient (BNVA) | payer MEDICARE, SELFPAY | PROVIDERS: PCP Internal Medicine; Visit Provider Internal Medicine | DX: I25.10 Atherosclerotic heart disease of native coronary artery without angina pectoris (principal); I10 Essential (primary) hypertension; E78.00 Pure hypercholesterolemia, unspecified; K76.0 Fatty (change of) liver, not elsewhere classified; R73.02 Impaired glucose tolerance (oral) | CPT/HCPCS: 96127; 99212 ==

== ENCOUNTER 2025-05-09 07:29 | Outpatient (REF) | payer MEDICARE, SELFPAY ==
--- OUTSIDE RECORDS SUMMARY | 2025-05-09 07:32 | XMS_ITS | Encounter Summary ---
Author Organization [facility] and [facility] Address [address] [place] [address] Care Team Providers Care Day Care Home Mother Name Role Phone Nataliia Porras MD Primary Care Provider [phone] Reason for Referral * Imaging (Routine) - Closed Specialty Diagnoses / Procedures Referred By Yo huerta Referred To Contact Diagnostic Radiology Procedures US Duplex Carotid Bilateral Complete Neurosurgery at [address] [place] [address] Phone: tel: fax: Referral ID Status Reason Start Date Expiration Date Visits Re quested Visits Authorized [id number] Closed 03/07/2023 03/06/2024 1 1 Encounter Details Date Type Department Care Team ([facility] st Contact Info) Description 03/07/2023 Scanned Document Neurosurgery at [address] [place] [address] Luanne Hair . Social History Tobacco Use [...] on filedocumented in this encounter Care Teams Day Care Home Mother Relationship Specialty Start Date End Date Nataliia Porras MD [address] [place] [address] [place] [phone] PCP - General Internal Medicine 08/14/18 documented as of this encounter
--- OUTSIDE RECORDS SUMMARY | 2025-05-09 07:32 | XMS_ITS | Encounter Summary ---
Author Organization [facility] and [facility] Address [address] [place] [address] Care Team Providers Care Estimator Project Manager Name Role Phone Nataliia Porras MD Primary Care Provider [phone] Reason for Referral * Imaging (Routine) - Closed Specialty Diagnoses / Procedures Referred By Yo huerta Referred To Contact Diagnostic Radiology Procedures US Duplex Carotid Bilateral Complete Fermin Brandt MD [address] [place] [phone] Phone: tel: fax: Referral ID Status Reason Start Date Expiration Date Visits Re quested Visits Authorized [id number] Closed 03/13/2021 03/13/2022 1 1 Encounter Details Date Type Department Care Team (Late st Contact Info) Description 03/13/2021 Scanned Document [facility] at [address] [place] [address] Fermin Brandt MD [address] [place] [phone] Social History Tobacco Use Types Packs/Day [...] on filedocumented in this encounter Care Teams Estimator Project Manager Relationship Specialty Start Date End Date Nataliia Porras MD [address] [place] [address] [place] [phone] PCP - General Internal Medicine 08/14/18 documented as of this encounter
--- OUTSIDE RECORDS SUMMARY | 2025-05-09 07:32 | XMS_ITS | Encounter Summary ---
Author Organization [facility] and [facility] Address [address] [place] [address] Care Team Providers Care Gis Geographer Name Role Phone Nataliia Porras MD Primary Care Provider [phone] Reason for Visit * Reason Comments Other Encounter Details Date Type Department Care Team ([facility] st Contact Info) Description 01/09/2022 Telephone [facility] SCHEDULING [address] [place], [place] [phone] Fermin Brandt MD [address] [place] [phone] Other Social History Tobacco Use Types Packs/Day [...] Mikaela Oglesby - 01/09/2022 9:46 AM EDT [facility] MESSAGE Time of call: 9:46 AM Caller: OSBALDO Caller's relationship to patient: SELF Calling from Reason for call: Pt would like imaging order sent to [facility] in [facility] If not feeling well, what are symptoms: If having symptoms, how long have the symptoms been present: Does caller request to speak to someone urgently? If yes, warm transferred to: Best telephone number for callback: [phone] Best time to return call: Permission to leave message: Mikaela Oglesby documented in this encounter Plan of Treatment Not on file documented as of this encounter Visit Diagnoses Not on filedocumented in this encounter Care Teams Gis Geographer Relationship Specialty Start Date End Date Nataliia Porras MD [address] [place] [address] [place] [phone] PCP - General Internal Medicine 08/14/18 documented as of this encounter
--- OUTSIDE RECORDS SUMMARY | 2025-05-09 07:32 | XMS_ITS | Clinical Summary ---
Author Organization [facility] Address [address] [place] [phone] Phone Care Team Providers Care Coverstitch Binder Name Role Phone Nataliia Porras MD Primary Care Provider [phone] Allergies No known active allergies Medications amLODIPine (NORVASC) 2.5 MG tablet Take 2.5 mg by mouth daily. Active aspirin 81 MG EC tablet Take 81 mg by mouth daily. Active carvedilol (COREG) 3.125 MG tablet Take 3.125 mg by mouth 2 (two) times a day with meals. Active glucosamine HCl/chondroitin hernandez (GLUCOSAMINE-ASTON DROITIN) 2,000-1,200 mg/30 mL Liqd Take 30 mL by mouth daily. Active coenzyme Q10 (CO Q-10) 100 mg capsule Take 300 mg by mouth daily. Active ezetimibe (ZETIA) 10 mg tablet Take 10 mg by mouth daily. Active losartan (COZAAR) 100 MG tablet Take 100 mg by mouth daily. Active therapeutic multivitamin tablet Take 1 tablet by mouth daily. Active nitroglycerin (NITROSTAT) 0.[address] 0.4 mg under the tongue every 5 (five) minutes as needed for chest pain. Active omeprazole (PRILOSEC) 20 MG capsule Take 20 mg by mouth daily. Active rosuvastatin (CRESTOR) 20 MG tablet Take 20 mg by mouth daily. Active ticagrelor (BRILINTA) 90 mg Tab Take 90 mg by mouth. Twice a day Active traMADoL (ULTRAM) 50 mg tablet Take 50 mg by mouth every 6 (six) hours as needed for pain (specific location in comments). Active LORazepam (ATIVAN) 0.5 MG tablet Take 1 tablet (0.5 mg total) by mouth every 6 (six) hours as needed (vertigo). 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 Not on judie e 04/22/2024 Are you concerned about learning? Not on file 04/22/2024 No 04/22/2024 No 04/22/2024 Food Answer Date Recorded Within the past 6 months we worried whether our food would run out before we got money to buy more. Never True 01/19/2025 Within the past 6 months the food we bought just didn't last and we didn't have enough money to get more. Never True Residential Stability Answer Date Recor ded What is your housing situation today? I have pablito sing 01/19/2025 How many times have you move d in the past 12 months? Zero (I did not move) 01/19/2025 Paying for Meds Answer Date Recorded Do you have trouble paying for medicines? No 01/19/2025 Paying Utility Bills Answer Date Record ed Do you have trouble paying your heating or elect ricity bill? No 01/19/2025 Transportation Answer Date Recorded Has the lack of transportati on kept you from medical appointments or from getting medications? No 01/19/2025 Digital Access Answer Date Recorded No 01/19/2025 Yes 01/19/2025 Do you have reliable internet access at home? Ye s 01/19/2025 Do you have a device (e.g., phone, tablet, computer) with a working camera? Yes 01/19/2025 Intimate Partner Violence Answer Date R ecorded Are you denied basic needs s uch as food, clothing, or medical care? No 01/19/2025 In the past 12 months have y ou been in a relationship with a person who hurts, threatens, or tries to control you? No 01/19/2025 Are you denied basic needs s uch as food, clothing, or medical care? No 01/19/2025 In the past 12 months have y ou been in a relationship with a person who hurts, threatens, or tries to control you? No 01/19/2025 Sex and Gender Information Value Date Recorded Sex Assigned at Male 01/19/2025 3:32 AM EDT Legal Sex Male 10:07 PM EDT Gender Identity Male 01/19/2025 3:32 AM EDT Sexual Orientation Straight 01/19/2025 3: 32 AM EDT Last Filed Vital Signs Vital Sign Reading Time Taken Comments Blood Pressure 138/78 01/19/2025 10:00 AM EDT Pulse 56 01/19/2025 10:00 AM EDT Temperature 36.7 C (98.1 F) 01/19/2025 10:00 AM EDT Respiratory Rate 19 01/19/2025 10:00 AM EDT Oxygen Saturation 100% 01/19/2025 10:00 AM EDT Inhaled Oxygen Concentration - - Weight 68 kg (150 lb) 01/19/2025 4:23 AM EDT Height 162.6 cm (5' 4 ) 01/19/2025 4:23 AM EDT Body Mass Index 25.75 01/19/2025 4:23 AM EDT Plan of Treatment Health Maintenance Due Date Last Done Comments Adult Td,Tdap Booster 1945 LIPID PANEL 1945 SMOKING Hx and SMOKELESS TOB ACCO SCREENING 1959 HEPATITIS C SCREENING 1964 PNEUMOCOCCAL VACCINES (50+ y ears) (1 of 1 - PCV) 1996 ZOSTER VACCINES (1 of 2) 1996 RSV VACCINE (1 - 1-dose 75+ series) 2021 INFLUENZA VACCINE (#1) 2025 COVID-19 VACCINE ( - 2024-2 6 season) 2025 DEPRESSION SCREENING 05/25/2025 05/25/2024 CREATININE LEVEL 01/19/2026 01/19/2025 POTASSIUM LEVEL 01/19/2026 01/19/2025 HEPATITIS A VACCINES Aged Out No long er eligible based on patient's age to complete this topic HIB VACCINES Aged Out No longer eligi ble based on patient's age to complete this topic MENINGOCOCCAL VACCINES (ACWY) Aged Out No longer eligible based on patient's age to complete this topic MENINGOCOCCAL VACCINES (B) Aged Out N o longer eligible based on patient's age to complete this topic Medical Devices Not on file Procedures Procedure Name Priority Date/Time Associated Diagnosis Comments BASIC METABOLIC PANEL STAT 01/19/2025 3:44 AM EDT from Last 3 Months or Most Recently Relevant to Health Maintenance Results * (ABNORMAL) Basic metabolic panel (01/19/2025 3:44 AM EDT) SODIUM 140 133 - 146 mmol/L [facility] CHLORIDE 106 96 - 108 mmol/L [facility] POTASSIUM 4.1 3.3 - 5.1 mmol/L [facility] CO2 26 21 - 35 mmol/L [facility] BUN 16 6 - 19 mg/dL [facility] CREATININE 1.00 0.5 - 1.5 mg/dL [facility] GLUCOSE 113(H) 70 - 99 mg/dL [facility] CALCIUM 8.9 8.4 - 10.3 mg/dL [facility] EGFR 77 >59 mL/min/1.7 3m2 [facility] Comment:Estimated glomerular filtration rate calculated using the CKD-EPI refit equation. ANION GAP 12 10 - 20 mmol/L [facility] Blood 01/19/2025 3:44 AM EDT 01/19/2025 3:47 AM EDT Ian Webster MD LAB BLOOD ORDERABLES Doretha gifford Result [facility] [address] [place] [address] from Last 3 Months or Most Recently Relevant to Health Maintenance Insurance [employer] MEDEX SUPPLEMENT MEDICARE PART A & B MEDEX SUPPLEMENT MEDICARE PART A & B BLUE CROSS MEDEX SUPPLEMENT MEDICARE PART A & B fake company 2.0 CROSS MEDEX SUPPLEMENT MEDICARE PART A & B BLUE CROSS MEDEX SUPPLEMENT MEDICARE PART A & B BLUE CROSS MEDEX SUPPLEMENT MEDICARE PART A & B Care Teams Coverstitch Binder Relationship Specialty Start Date End Date Nataliia Porras MD [address] [place] [address] [address] [place] [phone] PCP - General Internal Medicine 01/19/25 Additional Source Comments The information contained in this document represents components of the legal health record. It is not the complete legal health record.[facility]
--- OUTSIDE RECORDS SUMMARY | 2025-05-09 07:32 | XMS_ITS | Patient Health Record ---
Author Organization [facility] Address [address] [place] [address] Care Team Providers Care In Store Marketing Associate Name Role Phone Nataliia Porras MD Primary Care Provider Nigel Williamson [phone] Allergies No Known Allergies Reason For Referral No Information Medications Medication SIG (Take, Route, Frequency, Duration) Notes Start Date End Date Status Zetia 10 MG 1 tablet Orally Once a day; Duration: 30 day(s) Active amLODIPine Besylate 2.5 MG TAKE 1 TABLET BY MOUTH EVERY DAY Oral; Duration: 90 Active CoQ-10 Active traMADol HCl 50 MG 1 tablet as needed Orally Once a day PRN Back pain Active Omeprazole 20 MG 1 capsule Orally Every morning; Duration: 30 days Active Glucosamine Chond MSM Formula - as directed Orally Active Aspir-81 81mg 1 tablet Orally Once a day Active Multi Vitamin/Minerals Active Carvedilol 3.125 MG Orally twice a day Active Losartan Potassium 100 MG Oral; Duration: 90 Active Rosuvastatin Calcium 20 MG Oral; Duration: 90 Active Social History Tobacco Use: Social [...] Problem Status W/U Status Risk Notes Problem Colon cancer screening (719039439) Colon cancer screening (Z12.11) Active confirmed Problem Screening for malignant neoplasm of colon (950780262) Encounter for screening for malignant neoplasm of colon (Z12.11) Active confirmed Problem History of adenomatous polyp of colon (376027448) History of adenomatous polyp of colon (Z86.010) Active confirmed Problem History of polyp of colon (situation) (167085525) Personal history of colonic polyps (Z86.010) Active confirmed Problem 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 Problem Diverticular disease of colon (237402413) Diverticulosis of large intestine without perforation or abscess without bleeding (K57.30) Active confirmed Problem Gastroesophageal reflux disease (595843880) Gastroesophageal reflux disease (K21.9) Active confirmed Problem Gastroesophageal reflux disease without esophagitis (638108450) Gastroesophageal reflux disease without esophagitis (K21.9) Active confirmed Problem Preprocedural examination (832772702619757) Preprocedural examination (Z01.818) Active confirmed Problem Long-term current use of antiplatelet drug (685727690385710) Long-term use of aspirin therapy (Z79.82) Active confirmed Problem Astudillo esophagus (267649380) 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) Active confirmed Problem Astudillo's esophagus (498499041) Astudillo''s esophagus without dysplasia (K22.70) Active confirmed Problem Gastroesophageal reflux disease (407014826) Gastroesophageal reflux disease, unspecified whether esophagitis present (K21.9) Active confirmed Problem Diaphragmatic hernia (17335055) Hernia, hiatal (K44.9) Active confirmed Problem Gastroesophageal reflux disease (disorder) (021178981) Chronic GERD (K21.9) Active confirmed Plan Of Treatment Pending Test Test Name Order Date Pathology 08/21/2023 Future Test Test Name Order Date COLONOSCOPY 06/30/2012 COLONOSCOPY 03/10/2018 UPPER GI ENDOSCOPY 05/22/2023 COLONOSCOPY 05/22/2023 Insurance Providers Payer Name Payer Address Payer Phone Subscriber Number Group Number Insured Name Patient Relationship to Insured Coverage Start Date Coverage End Date MEDICARE OF [place] [address] [place] [address] [phone] [id number] AMINA WALLACE Self - patient is the insured [employer] ATT[employer] CLAIMS [address] [place] [address] [phone] [id number] AMINA WALLACE Self - patient is the insured Medical (General) History Medical History History ICD Code HTN CAD-had positive ETT-no PA Denies PA,DM,CVA,Lung disease,renal dise ase Hyperlipidemia Negative colonoscopy 10 years ago at [facility] by Dr. Cassie BINGHAM Colonoscopy 10/2012--2 small tubular toño omas removed [...]
--- OUTSIDE RECORDS SUMMARY | 2025-05-09 07:32 | XMS_ITS | Encounter Summary ---
Author Organization [facility] and [facility] Address [address] [place] [address] Care Team Providers Care Blackjack Dealer Name Role Phone Nataliia Porras MD Primary Care Provider [phone] Reason for Visit * Reason Comments Other Encounter Details Date Type Department Care Team ([facility] st Contact Info) Description 02/12/2023 Telephone [facility] [address] [place] [address] Fermin Brandt MD [address] [place] [phone] Other Social History Tobacco Use Types Packs/Day [...] 02/12/2023 12:27 PM EDT CUS scheduled for [facility] office on 02/14/23 at 11:30 am. Osbaldo notified of the appt. * Telephone Encounter - Mikaela Oglesby - 02/12/2023 11:14 AM EDT [facility] MESSAGE Time of call: 11:14 AM Caller: osbaldo Caller's relationship to patient: Calling from Reason for call: Pt called back to [facility] to fax orders for ultrasound of his cartoid artery. Please fax order to [facility] at [phone] which is a different number to try. He said this has been goingon for a month Best telephone number for callback: [phone] Best time to return call Permission to leave message: Mikaela Oglesby documented in this encounter Plan of Treatment Not on file documented as of this encounter Visit Diagnoses Not on filedocumented in this encounter Care Teams Blackjack Dealer Relationship Specialty Start Date End Date Nataliia Porras MD [address] [place] [address] [place] [phone] PCP - General Internal Medicine 08/14/18 documented as of this encounter
--- OUTSIDE RECORDS SUMMARY | 2025-05-09 07:32 | XMS_ITS ---
Author Name [facility] Organization Unknown History of Medication Use Medication Directions Dispensed Refills Start Date End Date Stat doxycycline (VIBRAMYCIN) 100 MG capsule TAKE 1 CAPSULE BY MOUTH EVERY DAY FOR LYMES DISEASE 02/22/2025 active Denta 5000 Plus 1.1 % Cream BRUSH DAILY ONTO TEETH ONCE AFTER FLOSSING LEAVE FOR 5 MINUTES THEN RINSE DO NOT SWALLOW 01/15/2025 active amLODIPine (NORVASC) 2.5 MG tablet Take 1 tablet (2.5 mg total) by mouth. active aspirin enteric coated 81 MG EC tablet Take 1 tablet (81 mg total) by mouth. active carvedilol (COREG) 3.125 MG tablet TAKE 1 TABLET BY MOUTH TWICE A DAY FOR 90 DAYS, MUST ADMINISTER WITH MEAL/FOOD active coenzyme Q10 100 MG capsule Take 3 capsules (300 mg total) by mouth. active ezetimibe (ZeTIA) 10 MG tablet Take 1 tablet (10 mg total) by mouth. active Glucosamine-Chondroiti n-Vit C 6056-3277-04 MG/30ML Liquid Take 30 mL by mouth. active losartan (COZAAR) 100 MG tablet Take 1 tablet (100 mg total) by mouth. active multivitamin with minerals (Oncovite) Tab tablet Take 1 tablet by mouth. active nitroglycerin (NITROSTAT) 0.[address] 1 tablet (0.4 mg total) under the tongue Every 5 minutes as needed. active OMEprazole (PriLOSEC) 20 MG capsule Take 1 capsule (20 mg total) by mouth every morning. active rosuvastatin (CRESTOR) 20 MG tablet Take 1 tablet (20 mg total) by mouth nightly. active traMADol (ULTRAM) 50 MG tablet Take 1 tablet (50 mg total) by mouth 4 times daily (every 6 hours) as needed. 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
--- OUTSIDE RECORDS SUMMARY | 2025-05-09 07:32 | XMS_ITS | Encounter Summary ---
Author Organization [facility] Address [address] [place] [address] Care Team Providers Care Automobile Mechanic Helper Name Role Phone Nataliia Porras MD Primary Care Provider [phone] Encounter Details Date Type Department Care Team (Late st Contact Info) Description 03/23/2019 Abstract [facility] 800 [facility] [address] [facility] [place] [address] Fermin Brandt MD [address] [place] [phone] Social History Tobacco Use Types Packs/Day Years [...] on filedocumented in this encounter Care Teams Automobile Mechanic Helper Relationship Specialty Start Date End Date Nataliia Porras MD [address] [place] [address] [place] [phone] PCP - General Internal Medicine 08/14/18 documented as of this encounter
--- OUTSIDE RECORDS SUMMARY | 2025-05-09 07:32 | XMS_ITS | Encounter Summary ---
Author Organization [facility] Address [address] [place] [address] Care Team Providers Care Computer Aided Drafter Name Role Phone Nataliia Porras MD Primary Care Provider [phone] Encounter Details Date Type Department Care Team (Late st Contact Info) Description 03/23/2019 Abstract [facility] 800 [facility] 800 [facility] [place] [address] Fermin Brandt MD [address] [place] [phone] Social History Tobacco Use Types Packs/Day Years [...] on filedocumented in this encounter Care Teams Computer Aided Drafter Relationship Specialty Start Date End Date Nataliia Porras MD [address] [place] [address] [place] [phone] PCP - General Internal Medicine 08/14/18 documented as of this encounter
--- OUTSIDE RECORDS SUMMARY | 2025-05-09 07:32 | XMS_ITS | Encounter Summary ---
Author Organization [facility] Address [address] [place] [address] Care Team Providers Care Inspector Tool Name Role Phone Nataliia Porras MD Primary Care Provider [phone] Encounter Details Date Type Department Care Team (Late st Contact Info) Description 04/15/2019 Scanned Document [facility] [address] [facility] [address] [facility] [place] [address] Fermin Brandt MD [address] [place] [phone] Social History Tobacco Use Types Packs/Day Years [...] on filedocumented in this encounter Care Teams Inspector Tool Relationship Specialty Start Date End Date Nataliia Porras MD [address] [place] [address] [place] [phone] PCP - General Internal Medicine 08/14/18 documented as of this encounter
--- OUTSIDE RECORDS SUMMARY | 2025-05-09 07:32 | XMS_ITS | Clinical Summary ---
Author Organization [address] Address [address] [place] [phone] Phone Care Team Providers Care Seo Assistant Name Role Phone Nataliia Proras MD Primary Care Provider [phone] Allergies No known active allergies Medications traMADol [...] 03/10/2023 HLD (hyperlipidemia) 02/26/2023 03/10/2023 CAD in [place] artery 02/26/2023 03/10/2023 Acute respiratory failure 03/18/2022 Aspiration pneumonia (HC Code) 03/18/2022 Spinal stenosis of lumbar region 03/18/2022 Transient ischemic attack 03/18/2022 Symptomatic stenosis of right carotid artery Overview (03/14/2019): 81% symptomatic atherosclerotic stenosis Asymptomatic stenosis of left carotid artery Overview (03/14/2019): 32% Encounters Date Type Department Care Team Description 02/23/2025 Scanned Document [facility] SCHEDULING [address] [place] [address] Provider, Historical from Last 3 Months Family History Medical History Relation Name Comments Heart attack Father Diabetes Other Heart attack Paternal Grandfather Relation Name Status Comments Father Other Paternal Grandfather Social History Tobacco Use Types Packs/Day Years Used Date Smoking Tobacco: Former Cigarettes Q uit: 2011 Smokeless Tobacco: Never Tobacco Cessation:Counseling Given: Not [...] Immunization (1 - 1-dose 75+ series) 2021 Influenza vaccine 02/18/2025 Covid-19 vaccine series (1 - season) 2025 Colon cancer screening, Colonoscopy Discontinued Meningococcal B Vaccine Aged Out No l onger eligible based on patient's age to complete this topic Meningococcal Vaccine Aged Out No nicholas genet eligible based on patient's age to complete this topic Procedures Procedure Name Priority Date/Time Associated Diagnosis Comments [facility] US DOPPLER Routine 02/22/2025 9:46 AM EDT from Last 3 Months Results * [facility] US Doppler (02/22/2025 9:46 AM EDT) Anatomical Region Laterality Modality Vascular Ultrasound us Historical Provider IMG [facility] NON REP ORDERABLES F inal Result from Last 3 Months Insurance MEDICARE [facility] MEDICARE [facility] MEDICARE [facility] Care Teams Seo Assistant Relationship Specialty Start Date End Date Nataliia Porras MD [address] [place] [address] [place] [phone] PCP - General Internal Medicine 08/14/18
--- OUTSIDE RECORDS SUMMARY | 2025-05-09 07:32 | XMS_ITS | Encounter Summary ---
Author Organization [facility] and [facility] Address [address] [place] [address] Care Team Providers Care Business Integration Analyst Name Role Phone Nataliia Porras MD Primary Care Provider [phone] Encounter Details Date Type Department Care Team ([facility] st Contact Info) Description 02/23/2025 Scanned Document [facility] CENTER SCHEDULING [address] [place], [place] [address] Provider, [facility] . Social History Tobacco Use Types Packs/Day [...] US DOPPLER Routine 02/22/2025 9:46 AM EDT documented in this encounter Results * [facility] US Doppler (02/22/2025 9:46 AM EDT) Anatomical Region Laterality Modality Vascular Ultrasound us Historical Provider IMG [facility] NON REP ORDERABLES F inal Result documented in this encounter Visit Diagnoses Not on filedocumented in this encounter Care Teams Business Integration Analyst Relationship Specialty Start Date End Date Nataliia Porras MD [address] [facility] [place] [phone] PCP - General Internal Medicine 08/14/18 documented as of this encounter
--- OUTSIDE RECORDS SUMMARY | 2025-05-09 07:32 | XMS_ITS | Clinical Summary ---
Author Organization [facility] Address [address] [place] [address] Care Team Providers Care Perinatal Technician Name Role Phone Nataliia Porras MD Primary Care Provider [phone] Sofie Gomez MD Unavailable [phone] Allergies No known active allergies Medications amLODIPine (NORVASC) 2.5 MG tablet Take 1 tablet (2.5 mg total) by mouth. Active aspirin enteric coated 81 MG EC tablet Take 1 tablet (81 mg total) by mouth. Active carvedilol (COREG) 3.125 MG tablet TAKE 1 TABLET BY MOUTH TWICE A DAY FOR 90 DAYS, MUST ADMINISTER WITH MEAL/FOOD Active coenzyme Q10 100 MG capsule Take 3 capsules (300 mg total) by mouth. Active doxycycline (VIBRAMYCIN) 100 MG capsule TAKE 1 CAPSULE BY MOUTH EVERY DAY FOR LYMES DISEASE 5 Active ezetimibe (ZeTIA) 10 MG tablet Take 1 tablet (10 mg total) by mouth. Active Glucosamine-Cho ndroitin-Vit C 0308-6439-14 MG/30ML Liquid Take 30 mL by mouth. Active losartan (COZAAR) 100 MG tablet Take 1 tablet (100 mg total) by mouth. Active multivitamin with minerals (Oncovite) Tab tablet Take 1 tablet by mouth. Active nitroglycerin (NITROSTAT) 0.[address] 1 tablet (0.4 mg total) under the tongue Every 5 minutes as needed. Active OMEprazole (PriLOSEC) 20 MG capsule Take 1 capsule (20 mg total) by mouth every morning. Active rosuvastatin (CRESTOR) 20 MG tablet Take 1 tablet (20 mg total) by mouth nightly. Active Denta 5000 Plus 1.1 % Cream BRUSH DAILY ONTO TEETH ONCE AFTER FLOSSING LEAVE FOR 5 MINUTES THEN RINSE DO NOT SWALLOW Active traMADol (ULTRAM) 50 MG tablet Take 1 tablet (50 mg total) by mouth 4 times daily (every 6 hours) as needed. Active Active Problems Problem Noted Date Diagnosed Date Hypercholesterolemia 02/22/2025 CAD in [place] artery 02/26/2023 HLD (hyperlipidemia) 02/26/2023 Melanocytic nevus of trunk 11/06/2021 Encounters Date Type Department Care Team Description 04/19/2025 10:20 AM EDT Consult [facility] [address] [phone] Sofie Gomez MD Dizziness and giddiness (Primary Dx); Coronary artery disease involving [place] coronary artery of [place] heart with angina pectoris ; Mixed hyperlipidemia ; Primary hypertension 04/19/2025 Travel from Last 3 Months Family History Medical History Relation Name Comments Coronary artery disease Father Tj Hill at 48, heart attack Relation Name Status Comments Father Tj Hill Alive Social History Tobacco Use Types Packs/Day Years Used Date Smoking Tobacco: Former Cigarettes 0.5 15 Q uit: 03/21/2011 Smokeless Tobacco: Never Alcohol Use Standard Drinks/Week Comments Never 0 (1 standard drink = 0.6 oz pur e alcohol) Sex and Gender Information Value Date Recorded Sex Assigned at Male 01/13/2025 2:26 PM EDT Legal Sex Male 6:23 PM EST Gender Identity Male 01/13/2025 2:26 PM EDT Sexual Orientation Heterosexual (straight) 01/13 2:26 PM EDT Last Filed Vital Signs Vital Sign Reading Time Taken Comments Blood Pressure 130/80 04/19/2025 10:29 AM EDT Pulse 59 04/19/2025 10:29 AM EDT Temperature - - Respiratory Rate - - Oxygen Saturation 97% 04/19/2025 10:29 AM EDT Inhaled Oxygen Concentration - - Weight 70.3 kg (155 lb) 04/19/2025 10:29 AM EDT Height - - Body Mass Index - - Plan of Treatment Upcoming Encounters Date Type Department Care Team (Late st Contact Info) Description 12/16/2025 10:00 AM EDT Office Visit [facility] [place] [address] [place] [phone] Sofie Gomez MD [address] [place] [address] Health Maintenance Due Date Last Done Comments Advance Care Planning 1945 Hepatitis C Virus Screening 1945 DTaP/Tdap/Td Vaccines (1 - Tdap) 1965 Pneumococcal Vaccines 50+ (1 of 2 - PCV) 1965 Zoster (Shingles) Vaccine (1 of 2) 1996 RSV Vaccine 50 years and old er and Patients (1 - 1-dose 75+ series) 2021 Influenza Vaccine 02/18/2025 COVID-19 Vaccine ( - 2023-2 5 season) 2025 Hepatitis B Vaccines Aged Out No long er eligible based on patient's age to complete this topic Procedures Procedure Name Priority Date/Time Associated Diagnosis Comments ECG 12-LEAD Routine 04/19/2025 10:22 AM EDT Dizziness and giddiness from Last 3 Months Results * ECG 12 lead (04/19/2025 10:22 AM EDT) Pathologist [facility] Ventricular rate 59 BPM EKG [facility] Atrial rate 59 BPM EKG [facility] P-R interval 136 ms EKG [facility] QRS duration 78 ms EKG [facility] Q-T interval 382 ms EKG [facility] QTC calculation (Bazett) 378 ms EKG [facility] P axis 71 degrees EKG [facility] R axis 56 degrees EKG [facility] T axis 65 degrees EKG [facility] 04/19/2025 10:2 2 AM EDT Narrative EKG [facility] - 04/19/2025 10:57 AM EDT Sinus bradycardia Nonspecific ST and T wave abnormality Abnormal ECG No previous ECGs available Confirmed by Sofie Gomez MD ([id number]) on 04/19/2025 10:57:13 AM Procedure Note Sofie Gomez MD - 04/19/[address] and T wave abnormality Abnormal ECG No previous ECGs available Confirmed by Sofie Gomez MD ([id number]) on 04/19/2025 10:57:13 AM Sofie Gomez MD ECG ORDERABLES Final Result EKG [facility] from Last 3 Months Insurance MEDICARE PART A & [place] [id number] Care Teams Perinatal Technician Relationship Specialty Start Date End Date Nataliia Porras MD [address] [place] [address] [place] [address] PCP - General Internal Medicine 01/13/25 Sofie Gomez MD [address] [place] [phone] Primary Instrument Panel Assembler Cardiovascular Disease 01/13/25
--- OUTSIDE RECORDS SUMMARY | 2025-05-09 07:32 | XMS_ITS | Encounter Summary ---
Author Organization [facility] and [facility] Address [address] [place] [address] Care Team Providers Care Cardiopulmonary Specialist Name Role Phone Nataliia Porras MD Primary Care Provider [phone] Reason for Referral * Imaging (Routine) - Closed Specialty Diagnoses / Procedures Referred By Yo huerta Referred To Contact Diagnostic Radiology Procedures US Duplex Carotid Bilateral Complete Neurosurgery at [address] [place] [phone] Phone: tel: fax: Referral ID Status Reason Start Date Expiration Date Visits Re quested Visits Authorized [id number] Closed 03/11/2022 03/11/2023 1 1 Encounter Details Date Type Department Care Team ([facility] st Contact Info) Description 03/11/2022 Scanned Document Neurosurgery at [address] [place] [phone] Luanne Hair . Social History Tobacco Use [...] on filedocumented in this encounter Care Teams Cardiopulmonary Specialist Relationship Specialty Start Date End Date Nataliia Porras MD [address] [place] [address] [place] [phone] PCP - General Internal Medicine 08/14/18 documented as of this encounter
--- OUTSIDE RECORDS SUMMARY | 2025-05-09 07:32 | XMS_ITS | Encounter Summary ---
Author Organization [facility] and [facility] Address [address] [place] [address] Care Team Providers Care Sorority Mother Name Role Phone Nataliia Porras MD Primary Care Provider [phone] Encounter Details Date Type Department Care Team (Late st Contact Info) Description 10/13/2018 Scanned Document [facility] [address] [place] [address] Fermin Brandt MD [address] [place] [phone] Social History Tobacco Use Types Packs/Day Years [...] on filedocumented in this encounter Care Teams Sorority Mother Relationship Specialty Start Date End Date Nataliia Porras MD [address] [place] [address] [place] [phone] PCP - General Internal Medicine 08/14/18 documented as of this encounter
[2025-05-09 07:48] LABS: MANUAL DIFF FLAG NO
[2025-05-09 08:19] LABS: Hematocrit 43.1 % (42.0-52.0); Hemoglobin 14.6 g/dl (14.0-18.0); Imm Gran Abs Auto 0.02 X10*3/uL (0.00-0.03); Imm Gran Pct Auto 0.3 % (0.0-0.4); Lymphocytes Absolute Auto 1.1 X10*3/uL (1.2-4.9); Mean Corpuscular HGB Conc 33.9 g/dl (31.0-36.0); Mean Corpuscular Hemoglobin 31.9 pg (27.0-33.0); Mean Corpuscular Volume 94.1 fL (80.0-98.0); NRBC Abs Auto 0.000 X10*3/uL (0.0-0.012); NRBC Pct Auto 0.0 /100WBC (0.0-0.2); Platelet Count 169 X10*3/uL (160-400); Red Blood Count 4.58 X10*6/uL (4.60-5.80); White Blood Count 7.8 X10*3/uL (4.8-10.8)
[2025-05-09 08:56] LABS: Alanine Aminotransferase 21 U/L (0-40); Albumin Level 4.6 g/dL (3.5-5.0); Alkaline Phosphatase 61 U/L (39-117); Anion Gap 14 (12-20); Aspartate Amino Transferase 28 U/L (5-37); Blood Urea Nitrogen 16 mg/dL (9-16); Calcium 9.5 mg/dL (8.4-10.2); Carbon Dioxide 28 mmol/L (22-29); Chloride 104 mmol/L (96-108); Cholesterol 128 mg/dL (<200); Estimated Glomerular Filt Rate > 60; HDL Cholesterol 49 mg/dL (>40); Magnesium 2.1 mg/dL (1.6-2.6); Potassium 4.4 mmol/L (3.3-5.1); Sodium 142 mmol/L (135-145); Total Protein 6.9 g/dL (6.5-8.0); Triglycerides 66 mg/dL (<150)
[2025-05-09 09:12] LABS: Free T4 (Free Thyroxine) 0.85 ng/dL (0.71-1.85); Thyroid Stimulating Hormone 1.72 uIU/mL (0.32-4.0)
[2025-05-09 09:17] LABS: Folate 16.3 ng/mL (> or = 4.0); Vitamin B12 554 pg/mL (200-900)
== END 2025-05-09 07:30 | disposition home or self-care (01) ==
LOC: HO.LAB 07:29
PROVIDERS: PCP Internal Medicine; Visit Provider Internal Medicine
DX: I25.10 Atherosclerotic heart disease of native coronary artery without angina pectoris (principal); E78.00 Pure hypercholesterolemia, unspecified; Z13.1 Encounter for screening for diabetes mellitus
CPT/HCPCS: 36415; 80053; 80061; 82607; 82746; 83036; 83735; 84439; 84443; 85025

== ENCOUNTER 2025-05-12 09:26 | Outpatient (AMB) | payer MEDICARE, SELFPAY ==
[2025-05-12 09:38] VITALS: BP 120/70; PULSE 58; O2SAT 98; BMI 26.5
--- NOTE | 2025-05-12 09:38 | AM.OFFVISMDC ---
Intake Vital Signs 05/12/25 09:38 Height 5 ft 4 in Weight 154 lb 6 oz BMI 26.5 BP 120/70 Blood Pressure Location Lt brachial Position Sitting Pulse 58 Pulse Source Pulse Oximeter Pulse Oximetry (%) 98 Oxygen Delivery Method Room Air Intake Visit Reasons: AWV Food And Beverage Associate Required: No Accompanied by: Self / Same As Patient Allergies lisinopril Allergy (Unknown, Verified 05/12/25 09:40) tiredness, cough Medication List - Last Reconciled 05/12/25 by Nataliia Porras MD amlodipine 2.5 mg PO DAILY aspirin (Adult Aspirin Regimen) 81 mg PO DAILY carvedilol 3.125 mg PO BID 90 days coenzyme Q10 (Co Q-10) 100 mg PO DAILY ezetimibe (Zetia) 10 mg PO DAILY lorazepam 0.5 mg PO DAILY PRN losartan 100 mg PO DAILY 90 days meclizine 25 mg PO DAILY PRN multivitamin 1 tab PO DAILY omeprazole 20 mg PO DAILY rosuvastatin 20 mg PO BEDTIME tramadol 50 mg PO TID PRN 30 days Do you need a note to return to daycare/school/sports/work: No PFSH Medical History Bilateral hand numbness Trigger finger of right hand Screening for prostate cancer Positive Lyme disease serology Lumbar nerve root compression Cholelithiasis Diverticular disease Peripheral neuropathy Hypercholesterolemia Hypertension Bilateral carotid artery stenosis Anxiety TIA (transient ischemic attack) Lumbar degenerative disc disease Coronary artery disease Erectile dysfunction Asthma Surgical History History of heart artery stent History of cardiac catheterization History of colonoscopy History of lumbar surgery History of surgery History of carotid endarterectomy History of cataract surgery History of coronary artery bypass graft History of eye surgery Family History Father Myocardial infarction Hypertension CVD (cardiovascular disease) Mother Hypertension Skin cancer Paternal Grandfather Myocardial infarction Paternal Uncle Myocardial infarction Social History (Updated 05/12/25 @ 10:11 by Nataliia Porras MD) Housing: House Alcohol intake: current Alcohol intake frequency: holidays/special occasions only Comment: once a month wine 1 shot Patient Tobacco Use Status: Former Tobacco user Tobacco use type: Cigarette e-Cigarette/Vaping Use: Never Used Second Hand Smoke Exposure: No service: No Current occupational status: retired Current occupation: rt hand Cognitive needs: No Hearing needs: No Vision needs: Yes Questionnaire Medicare Wellness Checkup [age] What gender do you identify with?: male During the past 4 weeks, how much have you been bothered by emotional problems such as feeling anxious, depressed, irritable, sad or downhearted, and blue?: not at all During the past 4 weeks, has your physical & emotional health limited your social activities with family, friends, neighbors, or groups?: not at all During the past 4 weeks, how much bodily pain have you generally had?: mild pain During the past 4 weeks, was someone available to help you if you needed & wanted help?: yes, as much as I wanted During the past 4 weeks, what was the hardest physical activity you could do for at least 2 minutes?: heavy Can you get to places out of walking distance without help? (For eg., can you travel alone on buses, taxis or drive your car?): Yes Can you go shopping for groceries or clothes without someone's help?: Yes Can you prepare your own meals?: Yes Can you do your housework without help?: Yes Because of any health problems, do you need the help of another person with your personal care needs such as eating, bathing, dressing or getting around the house?: No Can you handle your own money without help?: Yes During the past 4 weeks, how would you rate your health in general?: very good During the past 4 weeks how have things been going for you?: pretty well Are you having difficulties driving your car?: no Do you always fasten your seat belt when you are in a car?: yes, usually During past 4 weeks, have you been bothered by the following: never: Falling or dizzy when standing up, Sexual problems?, Trouble eating well?, Teeth or denture problems?, Problems using the telephone? and Tiredness or fatigue? Have you fallen 2 or more times in the past year?: No Are you afraid of falling?: No Are you a smoker?: no During the past 4 weeks, how many drinks of wine, beer, or other alcoholic beverages did you have?: no alcohol at all Do you exercise for about 20 minutes 3 or more times a week?: yes, most of the time Have you been given information to help with the following?: no: Hazards in your house that might hurt you? and no: Keeping track of your medications? How often do you have trouble taking medicines the way you have been told to take them?: I always take medicine as prescribed How confident are you that you can control & manage most of your health problems?: very confident What is your race?: Other PHQ-9 Over the last 2 weeks, how often have you been bothered by any of the following problems? 1. Little interest or pleasure in doing things: not at all 2. Feeling down, depressed, or hopeless: not at all 3. Trouble falling or staying asleep, or sleeping too much: not at all 4. Feeling tired or having little energy: not at all 5. Poor appetite or overeating: not at all 6. Feeling bad about yourself - or that you are a failure or have let yourself or your family down: not at all 7. Trouble concentrating on things, such as reading the newspaper or watching television: not at all 8. Moving or speaking so slowly that other people could have noticed. Or the opposite - being so fidgety or restless that you have been moving around a lot more than usual: not at all 9. Thoughts that you would be better off or of hurting yourself in some way: not at all Total score: 0 Source: Developed by Drs. Nigel Espitia, Lisa Greene, Archie Morales and colleagues, with an educational inge from [employer]. PHQ-2/PHQ-9 PHQ-2 Over the last 2 weeks, how often have you been bothered by any of the following problems? 1. Little interest or pleasure in doing things: not at all 2. Feeling down, depressed, or hopeless: not at all Total score: 0 If score is 3 or greater, continue 3. Trouble falling or staying asleep, or sleeping too much: not at all 4. Feeling tired or having little energy: not at all 5. Poor appetite or overeating: not at all 6. Feeling bad about yourself - or that you are a failure or have let yourself or your family down: not at all 7. Trouble concentrating on things, such as reading the newspaper or watching television: not at all 8. Moving or speaking so slowly that other people could have noticed. Or the opposite - being so fidgety or restless that you have been moving around a lot more than usual: not at all 9. Thoughts that you would be better off or of hurting yourself in some way: not at all Total score: 0 0-4 None-Minimal, 5-9 Mild, 10-14 Moderate, 15-19 Moderately Severe, 20-27 Severe Source: Developed by Drs. Nigel Espitia, Lisa Greene, Archie Morales and colleagues, with an educational inge from [employer]. Thrive Questionnaire Date Thrive assessed: 11/01/24 I am a: Patient What is your living situation today?: I have a steady place to live Within the past 12 months, did the food you bought not last and you didn't have the money to get more?: Never true Within the past 12 months, did you worry whether your food would run out before you got money to buy more?: Never true Do you have trouble paying for medicines?: No Do you have trouble getting transportation to medical appointments?: No Do you have trouble paying your heating and electricity bill?: No Do you have trouble taking care of your child, family member or friend?: No Do you have trouble with day-to-day activities such as bathing, preparing meals, shopping, managing finances, etc.?: No Are you currently unemployed and looking for a job?: No Are you interested in more education?: No Please select the resources that you would like help with: None Currently or been in a relationship where the following occur: I choose not to answer THRIVE Score: 0 AYANA-7 AMB Questionnaire AYANA-7 Date AYANA - 7 assessed: 11/01/24 Feeling nervous, anxious, or on edge: 0 = Not at all Not being able to stop or control worryin = Not at all Worrying too much about different things: 0 = Not at all Trouble relaxin = Not at all Being so restless that it is hard to sit still: 0 = Not at all Becoming easily annoyed or irritable: 0 = Not at all Feeling afraid as if something awful might happen: 0 = Not at all Total AYANA-7 score (0-4 normal; 5-9 mild; 10-14 moderate; 15-21 severe): 0 Source: Developed by Drs. Nigel Espitia, Lisa Greene, Archie Morales and colleagues, with an educational inge from [employer]. Review of Systems Const Denies poor appetite and Denies weakness Eyes Denies no additional complaints ENT Reports Normal hearing present, Denies dizziness, Denies nasal congestion, Denies tinnitus and Denies sore throat Card Denies chest pain, Denies syncope, Denies rapid heart rate and Denies dyspnea Resp Denies cough and Denies dyspnea GI Denies change in stool character, Reports constipation, Denies diarrhea, Denies nausea and Denies vomiting Denies dysuria and Denies urinary frequency Neuro Reports Normal hearing present, Denies confusion, Denies dizziness, Denies syncope and Denies weakness Psych Denies confusion Physical Exam Vital Signs: Last Vital Signs Pulse 58 05/12/25 09:38 BP 120/70 05/12/25 09:38 Pulse Ox 98 05/12/25 09:38 Oxygen Delivery Method Room Air 05/12/25 09:38 BMI result Body Mass Index 26.5 Const General: No confusion Orientation/consciousness: No confusion HEENT Head: Yes normocephalic Ears: external ears normal and TM's normal bilaterally Face and sinus: Yes normal facial exam Mouth: moist mucous membranes Throat: Yes tonsils normal Eyes Conjunctivae: conjunctivae normal Pupils: Equal, round and reactive pupils present and Pupil accommodation reflex normal Direct Ophthalmoscopy: normal light reflex Neck Neck: No lymphadenopathy Thyroid: Thyroid normal Chest Chest palpation & inspection: normal inspection of the chest Resp Effort & Inspection: normal respiratory effort and no audible wheezes Auscultation: clear to auscultation bilaterally, no crackles, no wheezes and lung sounds not diminished Cardio Rate: regular rate Rhythm: regular rhythm Peripheral pulses: radial pulses present and dorsalis pedis present GI Other: guaiac negative prostate N Palpation (GI): no masses Auscultation: normal bowel sounds and normoactive bowel sounds Male General Exam: Yes normal external exam Skin General skin exam: no rashes or lesions noted Rashes: no rashes Neuro General: No confusion Cranial nerves: Yes Equal, round and reactive pupils present and Yes Normal hearing present Cognition (Neuro): normal cognition Gait exam (Neuro): Normal gait present Motor exam (neuro): 5/5 motor strength present throughout Deep tendon reflexes (DTR's): Right brachioradialis reflex intensity grade: 2+, Left brachioradialis reflex intensity grade: 2+, Right patellar reflex intensity grade: 2+ and Left patellar reflex intensity grade: 2+ Extrem General: No edema Assessment & Plan Assessment & Plan (1) Medicare annual wellness visit, subsequent: Code(s): Z00.00 - Encounter for general adult medical examination without abnormal findings Plan: Patient is advised to eat healthy, keep well hydrated, keep active and have adequate sleep. (2) Coronary artery disease: Comment: follows w/[facility] March 2024 Cardiac cath [address] Barton Code(s): I25.10 - Atherosclerotic heart disease of [place] coronary artery without angina pectoris Qualifiers: Associated angina: without angina Coronary Disease-Associated Artery/Lesion type: [place] artery [place] vs. transplanted heart: [place] heart Qualified Code(s): I25.10 - Atherosclerotic heart disease of [place] coronary artery without angina pectoris Plan: Control the cholesterol, weight, blood pressure, patient takes aspirin 81 mg once a day, Brilinta (3) History of carotid endarterectomy: Comment: 08/2017 [facility] Code(s): Z98.890 - Other specified postprocedural states Plan: Continue to follow-up with vascular and on surveillance (4) Hypercholesterolemia: Code(s): E78.00 - Pure hypercholesterolemia, unspecified Plan: Avoid fried foods, chicken skin, eggs, butter margarine, pastries and meat. Be it pork or beef they have a lot of cholesterol LDL goal of less than 70 and triglyceride of less than 150 on Zetia and rosuvastatin (5) Impaired glucose tolerance: Code(s): R73.02 - Impaired glucose tolerance (oral) Plan: Decrease the amount of carbohydrate intake, pasta, bread, rice and potatoes are all sugar and that is aside from all the sweet stuff, remember that fruits are good but they are Sweet also. (6) GERD (gastroesophageal reflux disease): Code(s): K21.9 - Gastro-esophageal reflux disease without esophagitis Plan: Avoid the foods that causes that usually spicy foods, tomato products, juices, coffee, soda and foods that your sensitive to. After eating do not lie down, allow 3-4 hours before in lie down. And keep the head of bed above 30 degrees to avoid the acid from going up. (7) Fatty liver: Code(s): K76.0 - Fatty (change of) liver, not elsewhere classified Plan: Low-fat diet and exercise (8) Colon cancer screening: Comment: Tubular adenoma 2017 Code(s): Z12.11 - Encounter for screening for malignant neoplasm of colon Plan: Patient follows up with Gastroenterology and has has a planned EGD for the Barretts in 2026 (9) Lumbar degenerative disc disease: Code(s): M51.36 - Other intervertebral disc degeneration, lumbar region Plan: Continue with pain medication as needed (10) Generalized anxiety disorder: Code(s): F41.1 - Generalized anxiety disorder Plan: Stable Plan History of Present Illness The patient is a 79-year-old male presenting for an annual wellness visit. The patient has a history of coronary artery disease and has undergone carotid endarterectomy in August 2017. He reports having two stents placed a year ago and was on Brilinta for a year, which has now been discontinued. He feels stable regarding his cardiac health and continues to take aspirin 81 mg daily. The patient has asthma and uses medications as needed, with no recent exacerbations reported. He also has lumbar degenerative disc disease, for which he takes tramadol as needed for pain management. The patient has a history of generalized anxiety disorder and hypertension, both managed with medications including amlodipine and carvedilol. He also has hypercholesterolemia, managed with rosuvastatin and Zetia, with an LDL goal of less than 70 mg/dL. The patient has a history of cholelithiasis and hepatic steatosis, with impaired glucose tolerance noted. His recent blood work showed a blood sugar level of 113 mg/dL and hemoglobin A1c of 5.7%. The patient reports a history of gastroesophageal reflux disease, managed with omeprazole, and Astudillo's esophagus, with a follow-up EGD planned for 2026. He follows a low-fat diet and exercises regularly to manage his reflux symptoms. The patient experienced an episode of vertigo, which was treated with meclizine, and has not recurred. He was advised to consider physical therapy if symptoms persist, but currently reports no dizziness. The patient has bradycardia with a heart rate of 45 bpm, but electrolytes are normal, and he is asymptomatic. He also has mild anemia with a hemoglobin level of 12.9 g/dL. The patient has hemorrhoids, which have been present since childhood and rarely become inflamed. Health Maintenance - Colon cancer screening due, last test in 2017 - Follow-up EGD for Astudillo's esophagus planned for 2026 - Annual dermatology visits for skin checks - Low-fat diet and regular exercise for reflux management - LDL cholesterol goal of less than 70 mg/dL, managed with rosuvastatin and Zetia Social History - Alcohol consumption: Rare, approximately once a month, typically a small amount of wine - Tobacco use: Denies current use - Recreational drug use: Denies use - Exercise: Walks daily and performs stretching exercises - Diet: Consumes a low-fat diet, includes salads and yogurt Review of Systems - Cardiovascular: Denies chest pain, orthopnea, or syncope. Reports bradycardia. - Respiratory: Denies dyspnea, cough, or wheezing. - Gastrointestinal: Reports gastroesophageal reflux disease, managed with omeprazole. Denies nausea, vomiting, or difficulty swallowing. - Neurological: Reports past episode of vertigo, resolved with meclizine. Denies current dizziness or balance issues. - Genitourinary: Reports nocturia, urinating once or twice per night. - Musculoskeletal: Denies joint pain or stiffness. Reports use of tramadol for lumbar degenerative disc disease. - Dermatological: Denies skin changes. Reports annual dermatology visits. Physical Exam General: Cooperative, healthy appearing, comfortable, no acute distress and well developed Orientation: Patient oriented x3 Limitations: No limitations Head: Normal to inspection Ears: Hearing grossly normal bilaterally, but patient reports occasional dizziness related to inner ear issues Nose: Normal external nose present Face and sinus: Normal facial exam Eyes: Appearance normal, both eyes and all related structures; no vision problems reported Neck: Normal visual inspection and Yes full ROM Respiratory: Normal respiratory effort and able to speak in complete sentences. Clear to auscultation bilaterally Cardiovascular: Regular rate and rhythm. Normal S1 and S2; patient reports no chest heaviness or shortness of breath GI: Normal to inspection. Soft to palpation and nontender; patient reports regular bowel movements and occasional hemorrhoids Skin: No rashes or lesions noted; patient sees a skin care consultant annually Neuro: Patient oriented x3; reports a past episode of vertigo, resolved with medication Extremities: Normal to inspection; patient reports no significant pain or limitations in movement Results - Labs: Blood sugar 113 mg/dL, hemoglobin A1c 5.7%, hemoglobin 12.9 g/dL, LDL cholesterol 66 mg/dL - Tests: Electrolytes normal, renal function stable, liver function tests normal Plan Patient was informed and verbally consented to the use of an ambient scribe for clinic note documentation during this visit. 1. Coronary Artery Disease The patient will continue taking aspirin 81 mg daily for coronary artery disease management. He will follow up with cardiology for ongoing surveillance and management. 2. Asthma The patient will continue using asthma medications as needed, with no recent exacerbations reported. 3. Lumbar Degenerative Disc Disease The patient will continue using tramadol as needed for pain management related to lumbar degenerative disc disease. 4. Generalized Anxiety Disorder The patient will continue current medications for generalized anxiety disorder management. 5. Hypertension The patient will continue taking amlodipine and carvedilol for hypertension management. 6. Hypercholesterolemia The patient will continue taking rosuvastatin and Zetia to maintain LDL cholesterol levels below 70 mg/dL. 7. Cholelithiasis The patient will continue monitoring for any symptoms related to cholelithiasis. 8. Hepatic Steatosis The patient will continue monitoring liver function and follow a healthy diet to manage hepatic steatosis. 9. Impaired Glucose Tolerance The patient will continue monitoring blood sugar levels and maintain a healthy diet to manage impaired glucose tolerance. 10. Gastroesophageal Reflux Disease The patient will continue taking omeprazole and follow a low-fat diet to manage gastroesophageal reflux disease. 11. Vertigo The patient will monitor for any recurrence of vertigo and consider physical therapy if symptoms persist. 12. Bradycardia The patient will continue monitoring heart rate and report any symptoms related to bradycardia. 13. Anemia The patient will continue monitoring hemoglobin levels and report any symptoms related to anemia. 14. Astudillo's Esophagus The patient will follow up with gastroenterology for a planned EGD in 2026 to monitor Astudillo's esophagus. 15. Hemorrhoids The patient will continue monitoring hemorrhoids and manage symptoms as needed. Discussion Notes During the visit, we discussed the management of the patient's coronary artery disease, including the continuation of aspirin therapy and follow-up with cardiology. We reviewed the patient's asthma management plan, emphasizing the use of medications as needed. The patient was advised to continue tramadol for lumbar degenerative disc disease and to monitor for any changes in symptoms. We discussed the importance of maintaining a healthy diet and exercise routine to manage hypercholesterolemia and impaired glucose tolerance. The patient was informed about the planned EGD in 2026 for Astudillo's esophagus and the need for regular dermatology visits. Patient Instructions - Continue taking aspirin 81 mg daily for heart health. - Use asthma medications as needed. - Take tramadol for pain management as needed. - Follow a low-fat diet and exercise regularly to manage cholesterol and glucose levels. - Attend follow-up appointments with cardiology and gastroenterology as scheduled. - Monitor for any recurrence of vertigo and report if symptoms persist. - Continue regular dermatology visits for skin checks. Medications: Refilled tramadol 50 mg PO TID PRN 90 tabs 3RF pain 30 days M51.36 - Other intervertebral disc degeneration, lumbar region Quality Reporting (2019) Depression/Bipolar (159/160/161/177) PHQ-9: Total score: 0 Coding Level of Care Code Medicare Subsequent (G0439) Diagnoses Medicare annual wellness visit, subsequent Z00.00 Coronary artery disease involving [place] coronary artery of [place] heart without angina pectoris I25.10 Associated angina: without angina Coronary Disease-Associated Artery/Lesion type: [place] artery [place] vs. transplanted heart: [place] heart History of carotid endarterectomy Z98.890 Hypercholesterolemia E78.00 Impaired glucose tolerance R73.02 GERD (gastroesophageal reflux disease) K21.9 Fatty liver K76.0 Colon cancer screening Z12.11 Lumbar degenerative disc disease M51.36 Generalized anxiety disorder F41.1
--- OUTSIDE RECORDS SUMMARY | 2025-05-12 10:33 | XMS_ITS | Encounter Summary ---
Author Organization [facility] Address [address] [place] [address] Care Team Providers Care Welt Trimming Machine Operator Name Role Phone Nataliia Porras MD Primary Care Provider [phone] Encounter Details Date Type Department Care Team (Late st Contact Info) Description 03/23/2019 Abstract [facility] [address] [facility] [address] [facility] [place] [address] Fermin Brandt MD [address] [place] [phone] Social History Tobacco Use Types Packs/Day Years [...] on filedocumented in this encounter Care Teams Welt Trimming Machine Operator Relationship Specialty Start Date End Date Nataliia Porras MD [address] [place] [address] [place] [id number] PCP - General Internal Medicine 08/14/18 documented as of this encounter
--- OUTSIDE RECORDS SUMMARY | 2025-05-12 10:33 | XMS_ITS | Encounter Summary ---
Author Organization [facility] Address [address] [place] [address] Care Team Providers Care Hcc Coders Name Role Phone Nataliia Porras MD Primary Care Provider [phone] Encounter Details Date Type Department Care Team (Late st Contact Info) Description 03/23/2019 Abstract [facility] [address] [facility] [address] [facility] [place] [address] Fermin Brandt MD [address] [place] [phone] Social History Tobacco Use Types Packs/Day Years [...] on filedocumented in this encounter Care Teams Hcc Coders Relationship Specialty Start Date End Date Nataliia Porras MD [address] [place] [address] [place] [phone] PCP - General Internal Medicine 08/14/18 documented as of this encounter
--- OUTSIDE RECORDS SUMMARY | 2025-05-12 10:33 | XMS_ITS | Encounter Summary ---
Author Organization [facility] and [facility] Address [address] [place] [address] Care Team Providers Care Manager Property Name Role Phone Nataliia Porras MD Primary Care Provider [phone] Encounter Details Date Type Department Care Team (Late st Contact Info) Description 04/15/2019 Scanned Document [facility] [address] [facility] [address] [facility] [place] [address] Fermin Brandt MD [address] [place] [phone] Social History Tobacco Use Types Packs/Day Years [...] on filedocumented in this encounter Care Teams Manager Property Relationship Specialty Start Date End Date Nataliia Porras MD [address] [place] [address] [place] [phone] PCP - General Internal Medicine 08/14/18 documented as of this encounter
--- OUTSIDE RECORDS SUMMARY | 2025-05-12 10:33 | XMS_ITS | Encounter Summary ---
Author Organization [facility] and [facility] Address [address] [place] [address] Care Team Providers Care Hearings Reporter Name Role Phone Nataliia Porras MD Primary Care Provider [phone] Reason for Referral * Imaging (Routine) - Closed Specialty Diagnoses / Procedures Referred By Yo huerta Referred To Contact Diagnostic Radiology Procedures US Duplex Carotid Bilateral Complete Fermin Brandt MD [address] [place] [phone] Phone: tel: fax: Referral ID Status Reason Start Date Expiration Date Visits Re quested Visits Authorized [id number] Closed 03/13/2021 03/13/2022 1 1 Encounter Details Date Type Department Care Team (Late st Contact Info) Description 03/13/2021 Scanned Document [facility] [address] [place] [address] Fermin Brandt MD [address] [place] [phone] Social History Tobacco Use Types Packs/Day [...] on filedocumented in this encounter Care Teams Hearings Reporter Relationship Specialty Start Date End Date Nataliia Porras MD [address] [place] [address] [place] [address] PCP - General Internal Medicine 08/14/18 documented as of this encounter
--- OUTSIDE RECORDS SUMMARY | 2025-05-12 10:34 | XMS_ITS | Encounter Summary ---
Author Organization [facility] and [facility] Address [address] [place] [address] Care Team Providers Care Paint Supervisor Name Role Phone Nataliia Porras MD Primary Care Provider [phone] Reason for Referral * Imaging (Routine) - Closed Specialty Diagnoses / Procedures Referred By Yo huerta Referred To Contact Diagnostic Radiology Procedures US Duplex Carotid Bilateral Complete Neurosurgery at [address] [place] [address] Phone: tel: fax: Referral ID Status Reason Start Date Expiration Date Visits Re quested Visits Authorized [id number] Closed 03/07/2023 03/06/2024 1 1 Encounter Details Date Type Department Care Team ([facility] st Contact Info) Description 03/07/2023 Scanned Document Neurosurgery at [address] [place] [address] Luanne Hair . Social History Tobacco Use [...] on filedocumented in this encounter Care Teams Paint Supervisor Relationship Specialty Start Date End Date Nataliia Porras MD [address] [place] [address] [place] [address] PCP - General Internal Medicine 08/14/18 documented as of this encounter
--- OUTSIDE RECORDS SUMMARY | 2025-05-12 10:34 | XMS_ITS | Clinical Summary ---
Author Organization [facility] Address [address] [place] [address] Care Team Providers Care Translational Specialist Name Role Phone Nataliia Porras MD Primary Care Provider [phone] Sofie Gomez MD Unavailable [phone] Allergies No known active allergies Medications amLODIPine [...] total) by mouth. Active Glucosamine-Cho ndroitin-Vit C 3170-3045-94 MG/30ML Liquid Take 30 mL by mouth. 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 ; Mixed hyperlipidemia [...] Description 12/16/2025 10:00 AM EDT Office Visit [facility] [place] [facility] [address] [place] [phone] Sofie Gomez MD [address] [place] [address] Health Maintenance Due Date Last Done Comments [...] 12 lead (04/19/2025 10:22 AM EDT) Pathologist [facility] Ventricular rate 59 BPM EKG [facility] Atrial rate 59 BPM EKG [facility] P-R interval 136 ms EKG [facility] QRS duration 78 ms EKG [facility] Q-T interval 382 ms EKG [facility] QTC calculation (Bazett) 378 ms EKG [facility] P axis 71 degrees EKG [facility] R axis 56 degrees EKG [facility] T axis 65 degrees EKG [facility] 04/19/2025 10:2 2 AM EDT Narrative EKG [facility] - 04/19/2025 10:57 AM EDT Sinus bradycardia Nonspecific ST and T wave abnormality Abnormal ECG No previous ECGs available Confirmed by Sofie Gomez MD ([id number]) on 04/19/2025 10:57:13 AM Procedure Note Sofie Gomez MD - 04/19/[address] and T wave abnormality Abnormal ECG No previous ECGs available Confirmed by Sofie Gomez MD ([id number]) on 04/19/2025 10:57:13 AM Sofie Gomez MD ECG ORDERABLES Final Result EKG [facility] from Last 3 Months Insurance MEDICARE PART A & B [place] [id number] Care Teams Translational Specialist Relationship Specialty Start Date End Date Nataliia Porras MD [address] [place] [address] [place] [address] PCP - General Internal Medicine 01/13/25 Sofie Gomez MD [address] [place] [address] Primary Oil Recovery Unit Operator Cardiovascular Disease 01/13/25
--- OUTSIDE RECORDS SUMMARY | 2025-05-12 10:34 | XMS_ITS | Encounter Summary ---
Author Organization [facility] and [facility] Address [address] [place] [address] Care Team Providers Care Tucking Machine Operator Name Role Phone Nataliia Porras MD Primary Care Provider [phone] Encounter Details Date Type Department Care Team (Late st Contact Info) Description 10/13/2018 Scanned Document [facility] [address] [facility] [address] [facility] [place] [address] Fermin Brandt MD [address] [place] [phone] Social History Tobacco Use Types Packs/Day Years [...] on filedocumented in this encounter Care Teams Tucking Machine Operator Relationship Specialty Start Date End Date Nataliia Porras MD [address] [place] [address] [place] [address] PCP - General Internal Medicine 08/14/18 documented as of this encounter
--- OUTSIDE RECORDS SUMMARY | 2025-05-12 10:34 | XMS_ITS | Clinical Summary ---
Author Organization [facility] Address [address] [place] [address] Phone Care Team Providers Care Refractory Manager Name Role Phone Nataliia Porras MD Primary Care Provider [phone] Allergies No known active allergies Medications amLODIPine [...] EDT) SODIUM 140 133 - 146 mmol/L [facility] CHLORIDE 106 96 - 108 mmol/L [facility] POTASSIUM 4.1 3.3 - 5.1 mmol/L [facility] CO2 26 21 - 35 mmol/L [facility] BUN 16 6 - 19 mg/dL [facility] CREATININE 1.00 0.5 - 1.5 mg/dL [facility] GLUCOSE 113(H) 70 - 99 mg/dL [facility] CALCIUM 8.9 8.4 - 10.3 mg/dL [facility] EGFR 77 >59 mL/min/1.7 3m2 [facility] Comment:Estimated glomerular filtration rate calculated using the CKD-EPI refit equation. ANION GAP 12 10 - 20 mmol/L [facility] Blood 01/19/2025 3:44 AM EDT 01/19/2025 3:47 AM EDT Ian Webster MD LAB BLOOD ORDERABLES Doretha gifford Result [facility] [address] [place] [address] from Last 3 Months or Most Recently Relevant to Health Maintenance Insurance [employer] SUPPLEMENT MEDICARE PART A & B MEDEX SUPPLEMENT MEDICARE PART A & B [employer] SUPPLEMENT MEDICARE PART A & B [place] [employer] MEDEX SUPPLEMENT MEDICARE PART A & B [employer] SUPPLEMENT MEDICARE PART A & B [employer] SUPPLEMENT MEDICARE PART A & B Care Teams Refractory Manager Relationship Specialty Start Date End Date Nataliia Porras MD [address] [place] [address] [address] [place] [phone] PCP - General Internal Medicine 01/19/25 Additional Source Comments The information contained in this document represents components of the legal health record. It is not the complete legal health record.[facility]
--- OUTSIDE RECORDS SUMMARY | 2025-05-12 10:34 | XMS_ITS | Patient Health Record ---
Author Organization [facility] Address [address] [place] [address] Care Team Providers Care Float Nurse Name Role Phone Nataliia Porras MD Primary Care Provider Nigel Williamson [phone] Allergies No Known Allergies Reason For Referral [...] Status Risk Notes Problem Colon cancer screening (654628459) Colon cancer screening (Z12.11) Active confirmed Problem Screening for malignant neoplasm of colon (275113690) Encounter for screening for malignant neoplasm of colon (Z12.11) Active confirmed Problem History of adenomatous polyp of colon (994141403) History of adenomatous polyp of colon (Z86.010) Active confirmed Problem History of polyp of colon (situation) (917838200) Personal history of colonic polyps (Z86.010) Active confirmed Problem 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 Problem Diverticular disease of colon (696288196) Diverticulosis of large intestine without perforation or abscess without bleeding (K57.30) Active confirmed Problem Gastroesophageal reflux disease (968962553) Gastroesophageal reflux disease (K21.9) Active confirmed Problem Gastroesophageal reflux disease without esophagitis (919446107) Gastroesophageal reflux disease without esophagitis (K21.9) Active confirmed Problem Preprocedural examination (667137516118044) Preprocedural examination (Z01.818) Active confirmed Problem Long-term current use of antiplatelet drug (167721915987152) Long-term use of aspirin therapy (Z79.82) Active confirmed Problem Astudillo esophagus (197355991) 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) Active confirmed Problem Astudillo's esophagus (898523625) Astudillo''s esophagus without dysplasia (K22.70) Active confirmed Problem Gastroesophageal reflux disease (215364430) Gastroesophageal reflux disease, unspecified whether esophagitis present (K21.9) Active confirmed Problem Diaphragmatic hernia (90976633) Hernia, hiatal (K44.9) Active confirmed Problem Gastroesophageal reflux disease (disorder) (449118911) Chronic GERD (K21.9) Active confirmed Encounters Encounter Location Date Provider Diagnosis [facility] [address] [facility] [address] [place] [address] 05/11/2025 Nigel Jensen Plan Of Treatment Pending Test Test Name Order Date Pathology 08/21/2023 Future Test Test Name Order Date COLONOSCOPY 06/30/2012 COLONOSCOPY 03/10/2018 UPPER GI ENDOSCOPY 05/22/2023 COLONOSCOPY 05/22/2023 Insurance Providers Payer Name Payer Address Payer Phone Subscriber Number Group Number Insured Name Patient Relationship to Insured Coverage Start Date Coverage End Date MEDICARE OF [place] [address] [place] [address] [id number] AMINA WALLACE Self - patient is the insured MEDEX ATTN CLAIMS [address] [place] [address] [phone] [id number] AMINA WALLACE Self - patient is the insured Medical (General) History Medical History History ICD Code HTN CAD-had positive ETT-no TN Denies TN,DM,CVA,Lung disease,renal dise ase Hyperlipidemia Negative [facility] Matthews TIA Colonoscopy 10/2012--2 small [...]
--- OUTSIDE RECORDS SUMMARY | 2025-05-12 10:34 | XMS_ITS | Clinical Summary ---
Author Organization [address] Address [address] [place] [address] Phone Care Team Providers Care Salt Lifter Name Role Phone Nataliia Porras MD Primary Care Provider [phone] Allergies No known active allergies Medications traMADol [...] 03/10/2023 HLD (hyperlipidemia) 02/26/2023 03/10/2023 CAD in bill moore[place] artery 02/26/2023 03/10/2023 Acute respiratory failure 03/18/2022 Aspiration pneumonia (HC Code) 03/18/2022 Spinal stenosis of lumbar region 03/18/2022 Transient ischemic attack 03/18/2022 Symptomatic stenosis of right carotid artery Overview (03/14/2019): 81% symptomatic atherosclerotic stenosis Asymptomatic stenosis of left carotid artery Overview (03/14/2019): 32% Encounters Date Type Department Care Team Description 02/23/2025 Scanned Document [facility] SCHEDULING [address] [place] [address] Provider, Historical from Last 3 Months Family [...] Result from Last 3 Months Insurance MEDICARE [facility] MEDICARE [facility] MEDICARE [facility] Care Teams Salt Lifter Relationship Specialty Start Date End Date Nataliia Porras MD [address] [place] [address] [place] [address] PCP - General Internal Medicine 08/14/18
--- OUTSIDE RECORDS SUMMARY | 2025-05-12 10:34 | XMS_ITS | Encounter Summary ---
Author Organization [facility] and [facility] Address [address] [place] [address] Care Team Providers Care Pallet Rectifier Name Role Phone Nataliia Porras MD Primary Care Provider [phone] Reason for Visit * Reason Comments Other Encounter Details Date Type Department Care Team ([facility] Contact Info) Description 01/09/2022 Telephone [facility] SCHEDULING [address] [place], [place] [address] Fermin Brandt MD [address] [place] [phone] Other Social History Tobacco Use Types Packs/Day [...] Mikaela Oglesby - 01/09/2022 9:46 AM EDT [facility] MESSAGE Time of call: 9:46 AM Caller: OSBALDO Caller's relationship to patient: SELF Calling from Reason for call: Pt would like imaging order sent to [facility] radiology in [facility] If not feeling well, what are symptoms: If having symptoms, how long have the symptoms been present: Does caller request to speak to someone urgently? If yes, warm transferred to: Best telephone number for callback: [phone] Best time to return call: Permission to leave message: Mikaela Oglesby documented in this encounter Plan of Treatment Not on file documented as of this encounter Visit Diagnoses Not on filedocumented in this encounter Care Teams Pallet Rectifier Relationship Specialty Start Date End Date Nataliia Porras MD [address] [place] [address] [place] [phone] PCP - General Internal Medicine 08/14/18 documented as of this encounter
--- OUTSIDE RECORDS SUMMARY | 2025-05-12 10:34 | XMS_ITS | Encounter Summary ---
Author Organization [facility] and [facility] Address [address] [place] [address] Care Team Providers Care Acid Loader Name Role Phone Nataliia Porras MD Primary Care Provider Reason for Visit * Reason Comments Other Encounter Details Date Type Department Care Team ([facility] st Contact Info) Description 02/12/2023 Telephone [facility] [address] [place] [address] Fermin Brandt MD [address] [place] [phone] Other Social History Tobacco Use Types Packs/Day [...] 02/12/2023 12:27 PM EDT [facility] scheduled for [facility] office on 02/14/23 at 11:30 am. Osbaldo notified of the appt. * Telephone Encounter - Mikaela Oglesby - 02/12/2023 11:14 AM EDT [facility] MESSAGE Time of call: 11:14 AM Caller: osbaldo Caller's relationship to patient: Calling from Reason for call: Pt called back to [facility] to fax orders for ultrasound of his cartoid artery. Please fax order to [facility] at [phone] which is a different number to try. He said this has been goingon for a month Best telephone number for callback: [phone] Best time to return call Permission to leave message: Mikaela Oglesby documented in this encounter Plan of Treatment Not on file documented as of this encounter Visit Diagnoses Not on filedocumented in this encounter Care Teams Acid Loader Relationship Specialty Start Date End Date Nataliia Porras MD [address] [place] [address] [place] [phone] PCP - General Internal Medicine 08/14/18 documented as of this encounter
--- OUTSIDE RECORDS SUMMARY | 2025-05-12 10:34 | XMS_ITS | Encounter Summary ---
Author Organization [facility] and [facility] Address [address] [place] [address] Care Team Providers Care Passenger Coach Driver Name Role Phone Nataliia Porras MD Primary Care Provider [phone] Encounter Details Date Type Department Care Team ([facility] st Contact Info) Description 02/23/2025 Scanned Document [facility] CENTER SCHEDULING [address] [place], [place] [address] Provider, [facility] . Social History Tobacco Use Types Packs/Day [...] on filedocumented in this encounter Care Teams Passenger Coach Driver Relationship Specialty Start Date End Date Nataliia Porras MD [address] [place] [address] PCP - General Internal Medicine 08/14/18 documented as of this encounter
--- OUTSIDE RECORDS SUMMARY | 2025-05-12 10:34 | XMS_ITS | Encounter Summary ---
Author Organization [facility] Address [address] [place] [address] Care Team Providers Care Tire Builder Heavy Service Name Role Phone Nataliia Porras MD Primary Care Provider [phone] Reason for Referral * Imaging (Routine) - Closed Specialty Diagnoses / Procedures Referred By Yo huerta Referred To Contact Diagnostic Radiology Procedures US Duplex Carotid Bilateral Complete Neurosurgery at [address] [place] [address] Phone: tel: fax: Referral ID Status Reason Start Date Expiration Date Visits Re quested Visits Authorized [id number] Closed 03/11/2022 03/11/2023 1 1 Encounter Details Date Type Department Care Team ([facility] st Contact Info) Description 03/11/2022 Scanned Document Neurosurgery at [address] [place] [address] Luanne Hair . Social History Tobacco Use [...] on filedocumented in this encounter Care Teams Tire Builder Heavy Service Relationship Specialty Start Date End Date Nataliia Porras MD [address] [place] [address] [place] [phone] PCP - General Internal Medicine 08/14/18 documented as of this encounter
== END 2025-05-12 10:34 | disposition home or self-care (01) ==
LOC: HO.HMCH 09:27
PROVIDERS: PCP Internal Medicine; Visit Provider Internal Medicine
DX: Z00.00 Encounter for general adult medical examination without abnormal findings (principal); I25.10 Atherosclerotic heart disease of native coronary artery without angina pectoris; Z98.890 Other specified postprocedural states; E78.00 Pure hypercholesterolemia, unspecified; R73.02 Impaired glucose tolerance (oral); K21.9 Gastro-esophageal reflux disease without esophagitis; K76.0 Fatty (change of) liver, not elsewhere classified; Z12.11 Encounter for screening for malignant neoplasm of colon; M51.369 Other intervertebral disc degeneration, lumbar region without mention of lumbar back pain or lower extremity pain; F41.1 Generalized anxiety disorder